=== PATIENT | male | born 1945 | race Caucasian/White ===

== ENCOUNTER 2020-12-16 14:43 | Outpatient (CLI) | payer MEDICARE, BC, SELFPAY ==
--- NOTE | 2020-12-16 14:15 | DI.RAD_ITS ---
Exam(s) XR KNEE LT 3V AP,LAT,WILLIAM EXAM: XR KNEE LT 3V AP,LAT,WILLIAM CLINICAL HISTORY: knee pain. TECHNIQUE: 2D digital imaging was performed of the left knee. Four images were obtained. AP, later al and PA tunnel views were obtained. COMPARISON: No exams were available for comparison FINDINGS: BONES: No acute fracture is present. No bony destructive lesion is seen. Prominent hypertrophic millard ges are seen at the inferior patella and the anterior tibial tuberosity. Hypertrophic changes are al so seen at the proximal tibial fibular articulation. JOINTS: The knee is normally aligned. No joint effusion is seen. SOFT TISSUE: Normal. IMPRESSION: No acute for abnormality. DATA REPOSITORY: RADIATION DOSE DELIVERED:
--- NOTE | 2020-12-16 14:15 | DI.RAD_ITS ---
Exam(s) XR HIP RT COMPLETE AP PELVIS EXAM: XR HIP RT COMPLETE AP PELVIS CLINICAL HISTORY: R hip pain. TECHNIQUE: 2D digital imaging was performed of the right hip. Two images were obtained. AP pelvis a nd lateral right hip views were obtained. COMPARISON: No exams were available for comparison FINDINGS: BONES: No acute fracture is present. No bony destructive lesion is seen. JOINTS: No dislocation present. Mild degenerative changes are seen in the hips bilaterally. Ligament ous calcification is seen at the lumbosacral junction. SOFT TISSUE: Normal. IMPRESSION: Mild degenerative changes of the hips bilaterally. DATA REPOSITORY: RADIATION DOSE DELIVERED:
== END 2020-12-16 14:44 | disposition home or self-care (01) ==
LOC: DIORS 14:44
PROVIDERS: PCP Internal Medicine; Referring Provider Internal Medicine; Visit Provider Student in an Organized Health Care Education/Training Program
DX: M25.562 Pain in left knee (principal); M25.551 Pain in right hip; M17.12 Unilateral primary osteoarthritis, left knee; M70.52 Other bursitis of knee, left knee; M70.61 Trochanteric bursitis, right hip
CPT/HCPCS: 20610; 73562; 73502; J1040

== ENCOUNTER 2021-08-15 02:40 | Outpatient (RCR) | payer MEDICARE, BC, SELFPAY ==
--- NOTE | 2021-08-15 09:45 | HOLTER_ITS ---
APPROVED REPORT Conclusion This is a 48-hour Holter monitor reportedly ordered for tachycardia Interpretation is confounded by poor baseline, but probably the patient is in atrial flutter througho ut the recording with an average heart rate overall of 92. Minimum was 74, maximum 178. Heart rates are elevated a considerable portion of the time, particularly during waking hours There were rare ventricular ectopic beats There was no high-grade AV block, no pauses greater than 3 seconds No patient symptoms were reported
== END 2021-09-07 23:59 | disposition home or self-care (01) ==
LOC: RT 02:40
PROVIDERS: PCP Internal Medicine; Visit Provider Internal Medicine
DX: R00.0 Tachycardia, unspecified (principal); I48.92 Unspecified atrial flutter
CPT/HCPCS: 93227; 93225; 93226

== ENCOUNTER → 2021-12-08 10:44 | Outpatient (BNVA) | payer MEDICARE, BC, SELFPAY | PROVIDERS: PCP Internal Medicine; Referring Provider Internal Medicine; Visit Provider Internal Medicine Cardiovascular Disease | DX: E66.01 Morbid (severe) obesity due to excess calories (principal); E78.5 Hyperlipidemia, unspecified; R06.09 Other forms of dyspnea; G47.33 Obstructive sleep apnea (adult) (pediatric); Z99.89 Dependence on other enabling machines and devices; R60.0 Localized edema; I48.92 Unspecified atrial flutter; R94.39 Abnormal result of other cardiovascular function study; E11.29 Type 2 diabetes mellitus with other diabetic kidney complication; R80.9 Proteinuria, unspecified | CPT/HCPCS: 93005; 99203; 99214 ==

== ENCOUNTER 2021-12-08 10:50 | Outpatient (CLI) | payer MEDICARE, BC, SELFPAY ==
--- NOTE | 2021-12-08 10:45 | RT.EKG_ITS ---
APPROVED REPORT Exam: Resting ECG Reason for Exam: NPW, Baseline needed Patient Location: O HR:57 bpm ECG Measurements Heart Rate 57 AXIS SD 210 P 16 QRSd 135 QRS 0 QT 430 T 7 QTc 419 Conclusion Sinus rhythm...normal P axis, V-rate 50- 99 Atrial premature complex...SV complex w/ short R-R interval Left anterior fascicular block Late transition
== END 2021-12-08 10:51 | disposition home or self-care (01) ==
LOC: DI.CARD 10:52
PROVIDERS: PCP Internal Medicine; Visit Provider Internal Medicine Cardiovascular Disease
DX: I48.92 Unspecified atrial flutter (principal); R94.31 Abnormal electrocardiogram [ECG] [EKG]; I49.1 Atrial premature depolarization; I44.4 Left anterior fascicular block
CPT/HCPCS: 93010

== ENCOUNTER 2021-12-09 03:28 | Outpatient (CLI) | payer MEDICARE, BC, SELFPAY ==
[2021-12-09 13:36] LABS: HCT 41.2 % (40.0-50.0); MCH 30.6 pg (27.0-33.0); MCV 90 fL (80-95); MPV 10.5 fL (8.0-11.0); Platelet Count 154 10^3/uL (130-400); RBC 4.58 10^6/uL (4.36-5.78); RDW 12.9 % (11.8-14.1); RDW-SD 42.3 fL; WBC 5.59 10^3/uL (4.4-10.8)
[2021-12-09 14:17] LABS: Anion Gap 9.1 mmol/L (3-11); BUN 17 mg/dL (7-18); CO2 25.9 mmol/L (21.0-32.0); CREATININE 1.2 mg/dL (0.70-1.30); Calcium 9.1 mg/dL (8.5-10.1); Chloride 105 mmol/L (98-107); Estimated GFR 62.29 (mL/min/1.73m2); Glucose 123 mg/dL (74-106); Potassium 4.3 mmol/L (3.5-5.1); Sodium 140 mmol/L (136-145)
[2021-12-09 14:21] LABS: INR 1.3 (0.9-1.1); PTT Activated 27.9 sec (21.0-27.5); Prothrombin Time 12.7 sec (9.3-11.0)
== END 2021-12-09 03:29 | disposition home or self-care (01) ==
LOC: LBO 03:33
PROVIDERS: PCP Internal Medicine; Visit Provider Internal Medicine Cardiovascular Disease
DX: I48.92 Unspecified atrial flutter (principal); E11.29 Type 2 diabetes mellitus with other diabetic kidney complication; R80.9 Proteinuria, unspecified; R94.39 Abnormal result of other cardiovascular function study
CPT/HCPCS: 36415; 80048; 85027; 85610; 85730

== ENCOUNTER → 2021-12-16 02:36 | Outpatient (CLI) | payer MEDICARE, BC, SELFPAY ==
--- NOTE | 2021-12-16 14:58 | DI.US_ITS ---
APPROVED REPORT EXAM: Comprehensive 2D, Doppler, and color-flow Echocardiogram Patient Location: Out-Patient Loan Associate: Linh Ramos RDCS (AE) Indications: LV function, Atrial flutter Other Information Study Quality: Fair. Technically limited study due to body habitus. Conclusion Normal left ventricular wall thickness and chamber size. Estimated ejection fraction is 58%. Wall m otion is normal The right atrium and right ventricle are not well visualized The left atrium is moderately dilated Aortic valve is sclerotic and trileaflet with trace regurgitation. There is no aortic stenosis Mitral annular calcification. Trace mitral regurgitation Normal tricuspid valve with mild regurgitation. Estimated right ventricular systolic pressure is 31 mmHg Dilated ascending aorta measuring 4.1 cm Wall motion Left Ventricle The left ventricle is normal size. The overall left ventricular systolic function appears normal. The re is normal left ventricular wall thickness. There is normal LV segmental wall motion. There is no v entricular septal defect visualized. LVEF is 58%. Right Ventricle Right ventricle is not well visualized. Right ventricular systolic function could not be assessed. Th e RVSP is 30.9mmHg. Atria Left atrium is moderately dilated. Right atrium is not well visualized. The interatrial septum is int act with no evidence for an atrial septal defect. Aortic Valve The Aortic valve is sclerotic. Aortic valve is trileaflet. There is no aortic valvular stenosis. Trac e aortic regurgitation. Mitral Valve There is mitral annular calcification. No evidence of mitral valve stenosis. Trace mitral regurgitati on. Tricuspid Valve The tricuspid valve is normal in structure. There is no tricuspid valve stenosis. Mild tricuspid regu rgitation. Pulmonic Valve The pulmonary valve is normal in structure. There is no pulmonic valvular stenosis. Trace pulmonic re gurgitation. Great Vessels The aortic root is normal in size. The ascending aorta is moderately dilated. Aortic arch is not well visualized. IVC is normal in size and collapses >50% with inspiration. Pericardium There is no pericardial effusion. 2D Dimensions IVSD d PLAX 1.14 cm M: 0.6-1.2 LV Vol A2C d MOD 202.8 mL LVPW d PLAX 1.16 cm M: 0.6 - 1.2 LV Vol A4C d MOD 182.9 mL LVID d PLAX 5.31 cm M: 4.2 - 5.8 LA vol/ BSA A2C s A-L 67.8 mL/m2 LVDs 3.50 cm M: 2.5 - 4.0 LA vol/ BSA A4C s A-L 45.8 mL/m2 Ao Root d 3.45 cm M: 3.1 - 3.7 LA Vol/ BSA Biplane s A-L 58.5 mL/m2 Ao Asc Diam d 4.10 cm M: 2.6 - 3.4 LA Area A4C s MOD 29.17 cm2 LV EF Teichholz 61.4 % LA Area A2C s MOD 37.24 cm2 LVEF (Foote's) 58.95 % M: 52 - 72 LV EF A4C MOD 57.4 % LV Volume 139.55 mL M: 62 - 150 LV EF A2C MOD 59.1 % LV Volume Index 59.63 mL/m2 M: 34 - 74 LV EF Biplane MOD 59.0 % LV Vol Biplane MOD 195.7 mL SV 115.40 mL FS 33.20 % SV Index 49.14 mL/m2 LV Diastology MV E' medial 0.069 (>0.07 m/s) E/A Ratio 1.7 LV E/e MED 13.80 (<14) MV E Vmax 0.96 (0.4-1.3 m/s) MV E' lateral 0.081 (>0.1 m/s) MV A Vmax 0.55 (0.4-1.3 m/s) LV E/e LAT 11.80 (<14) MV E/A Ratio 1.64 MV E/E' medial 13.84 MV E/E' lateral 11.84 Aortic Valve LVOT Area 3.53 cm2 AoV Area Vmax 2.65 cm2 LVOT Vmax 0.98 m/s AoV Area/ BSA (Vmax) 1.13 cm2/m2 LVOT Mean Tejas. 0.67 m/s GAIL Mean Tejas. 2.50 cm2 LVOT Peak Grad 3.8 mmHg GAIL Mean [place]jas. Index 1.06 cm2/m2 LVOT Mean Grad 2.1 mmHg LVOT VTI 0.248 m LVOT Diam s 2.10 cm AoV Vmax 1.30 m/s Velocity Ratio 0.75 AoV Mean Tejas. 0.94 m/s AoV Peak Grad 6.8 mmHg LVOT SV 87.35 mL AoV Mean Grad 4.0 mmHg AoV VTI 0.299 m AoV Area VTI 2.93 cm2 AoV Area/ BSA (VTI) 1.25 cm/m2 Mitral Valve MV DT 168 (160-240 msec) MV PHT 49 msec MV Area PHT 4.52 cm2 Pulmonary Valve PV Vmax 0.99 (0.5-1.5 m/s) RVOT Peak Gr. 2.33 mmHg PV Peak Grad 3.9 mmHg RVOT Mean Gr. 1.40 mmHg PV Mean Grad 2.0 mmHg RVOT VTI 0.177 m PV VTI 0.217 m RVOT Vmax 0.76 m/s Tricuspid Valve TR Peak Grad 27.8 mmHg TR Vmax 2.64 m/s RA Pressure 3.00 mmHg RVSP (TR) 30.9 mmHg
== END ==
PROVIDERS: PCP Internal Medicine; Visit Provider Internal Medicine Cardiovascular Disease
DX: I48.92 Unspecified atrial flutter (principal)
CPT/HCPCS: 93306

== ENCOUNTER → 2022-01-26 10:35 | Outpatient (BNVA) | payer MEDICARE, BC, SELFPAY | PROVIDERS: PCP Internal Medicine; Referring Provider Internal Medicine; Visit Provider Internal Medicine Cardiovascular Disease | DX: I48.92 Unspecified atrial flutter (principal); I25.10 Atherosclerotic heart disease of native coronary artery without angina pectoris; I10 Essential (primary) hypertension | CPT/HCPCS: 99214 ==

== ENCOUNTER 2022-04-17 16:01 | Outpatient (CLI) | payer MEDICARE, BC, SELFPAY ==
--- NOTE | 2022-04-17 16:00 | RT.EKG_ITS ---
APPROVED REPORT Exam: Resting ECG Reason for Exam: Dizziness Patient Location: O HR:51 bpm ECG Measurements Heart Rate 51 AXIS HI 227 P 48 QRSd 137 QRS -3 QT 456 T 13 QTc 420 Conclusion Sinus rhythm...normal P axis, V-rate 50- 99 Prolonged HI interval...HI >220, V-rate 50- 90 IVCD, consider atypical RBBB...QRSd>120mS, terminal axis(90,270)
== END 2022-04-17 16:02 | disposition home or self-care (01) ==
LOC: DI.CM 16:01
PROVIDERS: PCP Internal Medicine; Visit Provider Physician Assistant
DX: H81.13 Benign paroxysmal vertigo, bilateral (principal); I45.10 Unspecified right bundle-branch block; I45.6 Pre-excitation syndrome; Z95.5 Presence of coronary angioplasty implant and graft
CPT/HCPCS: 93010

== ENCOUNTER 2022-04-25 09:17 | Emergency (ER) | payer MEDICARE, BC, SELFPAY ==
[2022-04-25 09:24] VITALS: BP 188/68; PULSE 64; RESP 18; TEMP 36.7; O2SAT 95
--- NOTE | 2022-04-25 09:30 | DI.CT_ITS ---
Exam(s) CT LUMBAR SPINE RECONS CT ABDOMEN PELVIS WO EXAM: CT ABDOMEN PELVIS WO and CT lumbar spine recons CLINICAL HISTORY: right flank pain. TECHNIQUE: Imaging Protocol: Axial computed tomography images with coronal and sagittal reformatted images were created and reviewed. COMPARISON: CT CT LUMBAR SPINE RECONS from 04/25/2022 FINDINGS: ABDOMEN: Lung Bases: Normal where visualized. There is a small hiatal hernia. Surgical changes are seen at th e gastroesophageal junction. Liver: Normal density. No measurable mass. Gallbladder and biliary tract: No radiodense calculus or biliary ductal dilation. Pancreas: Normal density, no abnormal calcifications or inflammatory process. Spleen: Normal. Kidneys: Normal size, contour and axis.No radiodense stones or obstructive uropathy. There is a tiny fat density lesion in the left kidney. 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 Adrenal glands: There is a 2.2 cm hypodense nodule in the right adrenal gland. The left adrenal glan d is unremarkable. Lymph nodes: Within normal limits. Abdominal Aorta: Abdominal portion non-dilated. Atherosclerosis is present. PELVIS: Bladder:Symmetric distention, no gross wall thickening. Bowel: There is diverticulosis, but no evidence of acute diverticulitis. There is no evidence of harshal endicitis. There is no bowel wall thickening or obstruction. Peritoneal cavity: No ascites, collection or mesenteric inflammatory response. No free air. Reproductive organs: There is an enlarged prostate gland. Bones: Within normal limits. Soft Tissues: Within normal limits. CT lumbar spine recons: Degenerative changes are present throughout the lumbar spine. Findings inclu de endplate osteophytes, disc space narrowing and facet arthropathy. Multilevel neural foraminal hugo nosis is present. The findings are most marked at L4-5 and L5-S1. No acute fractures or subluxation s are seen in the lumbar spine. The bones are normally mineralized. IMPRESSION: 1. No acute abdominal pelvic process. 2. No evidence of hydronephrosis or nephrolithiasis. 3. Hypodense 2.2 cm right adrenal lesion. Follow-up examination with a CT/MRI of the adrenal glands according to the adrenal adenoma protocol is recommended. 4. No acute findings are seen in the lumbar spine. 5. Multilevel degenerative changes in the lumbar spine as described above. RADIATION DOSE DELIVERED: Total DLP DATA REPOSITORY: All CT scans at this facility are submitted to the National Radiology Data Registry (NRDR) Dose Index Registry (DIR) with the [employer] ([employer]). RADIATION OPTIMIZATION: All CT scans at this facility use at least one of these dose optimization te chniques: automated exposure control; mA and/or kV adjustment per patient size (includes targeted exa ms where dose is matched to clinical indication); or iterative reconstruction.
--- NOTE | 2022-04-25 09:33 | ED.GENADUL_ITS ---
Discharge Plan Disposition Patient Disposition: Home Condition: Stable Discharge Details Clinical Impression: Lumbar back pain, Flank pain, Acute UTI Primary Care Provider: Sadi Rogers ED Provider: Alexander Ortega Home Meds and New Rx's Prescriptions: New prednisone 20 mg tablet 60 mg PO DAILY 4 Days Qty: 12 0RF ciprofloxacin HCl 500 mg tablet 500 mg PO BID Qty: 14 0RF Continued cholecalciferol (vitamin D3) 125 mcg (5,000 unit) capsule 125 mcg PO DAILY hydrochlorothiazide 12.5 mg capsule 12.5 mg PO DAILY Patient Comments: not taking losartan 50 mg tablet 50 mg PO DAILY metformin 1,000 mg tablet 1,000 mg PO BID pioglitazone 30 mg tablet 30 mg PO DAILY potassium chloride 10 mEq capsule, extended release 10 meq PO DAILY tamsulosin [Flomax] 0.4 mg capsule 0.4 mg PO QHS Patient Comments: not taking saw palmetto 500 mg capsule 1,000 mg PO DAILY Rx Instructions: give with food (meal/snack) diphenhydramine HCl [Allergy (diphenhydramine)] 25 mg capsule 25 mg PO QHS PRN Patient Comments: not taking clopidogrel 75 mg tablet 75 mg PO DAILY rosuvastatin 20 mg tablet 20 mg PO DAILY melatonin 5 mg capsule 5 mg PO DAILY PRN meclizine 25 mg tablet 25 mg PO BID PRN (Reason: dizziness) Qty: 7 0RF Patient Comments: not taking metoprolol succinate 25 mg tablet extended release 24 hr 25 mg PO DAILY Xarelto 20 mg tablet 20 mg PO DAILY Rx Instructions: must administer with evening meal Discharge Instructions Instructions: Urinary Tract Infection in Men (ED), Acute Low Back Pain (ED) Additional Instructions: your cat scans did not show concerning findings at this time, your urine did show evidence of a urinary tract infection follow up with your primary care provider within a week if symptoms continue if you feel more ill, have severe worsening pain or fevers return to the emergency department Medical Decision Making 76 yo male with hx of cad, hld, t2dm, who comes in with 3 days of worsening back pain. He states he has had chronic pain for years but has worsened the last few days without any trauma or falls. He denies fevers, chills, chest pain, dyspnea, abdomen pain, difficulty urinating. HE arrives stable ambulatory without assistance. He localizes the pain to the lower lumbar region and right lower back. HE has no saddle anesthesia, intact distal sensation and pulses and 5/5 strength in the extremities.He has no erythema or rashes on his back, no cva tenderness, no abdominal tenderness. Suspect musculoskeletal back pain, will obtain ct to evaluate for possible kidney stones though this seems unlikely and also evaluate for possible compression fx's. No findings on history or physical to suggest etiologies such as cauda equina and spinal epidural abscess. blood work and cat scan show no acute findings, has degenerative disease of the lumbar region. HE is positive nitrites on his urine, denies any urinary sympto ms. HE feels well and states pain significantly better with toradol. He has stable exam. Suspect musculoskeletal back pain, no findings to suggest pyelo. Will trial short course of prednisone and start on cipro, he is stable for d/c, advised to f/u with his pcp and return precautions given Differential Diagnosis Differential Diagnosis: muscle spasm, disc herniation, kidney stone Medical Records Medical records reviewed: Yes I reviewed the patient's medical records. Imaging Data Radiologic Study: Attestation: I personally reviewed and interpreted this imaging study as follows: Imaging: CT Scan Radiologist's impression: IMPRESSION: 1. No acute findings to explain reported symptoms, within the limitations of a noncontrast examination. 2. Nonacute findings as outlined above. 3. Additional studies dictated separately Radiologic Study #2: Attestation: I personally reviewed and interpreted this imaging study as follows: Imaging: CT Scan Radiologist's impression: FINDINGS: Bones/joints: No acute lumbar spine fracture seen. Findings suggestive of diffuse idiopathic skeletal hyperostosis. 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 At T12-L1 there is marked bilateral foraminal narrowing and marked canal narrowing. At L1-L2 there is marked bilateral foraminal narrowing and marked canal narrowing. At L2-L3 there is marked bilateral foraminal narrowing and marked canal narrowing. At L3-L4 there is marked bilateral foraminal narrowing and marked canal narrowing. At L4- L5 there is marked bilateral foraminal narrowing and marked canal narrowing. At L5-S1 there is marked bilateral foraminal narrowing and moderate canal narrowing. HPI General Mode of arrival: ambulatory . Date/Time Provider Initiated Documentation: 04/25/22 09:20 . Limitations to Documentation: no limitations . Information obtained by: patient . History of Present Illness 76 year old M presents to the emergency department with the chief complaint of lower back pain, described as severe, Quality is described as aching, and is localized to the back. Patient reports no radiation. Patient started experiencing this day(s) (3) and it has been constant. No relieving factors improve symptom(s), No exacerbating factors reported . Patient notes no ot her symptoms.; denies chest pain, fever/chills, nausea/vomiting and shortness of breath. Patient did receive the following treatments prior to arrival, none Related Data Home Medications Medication Instructions Recorded Confirmed cholecalciferol (vitamin D3) 125 125 mcg PO DAILY 12/10/20 04/25/22 mcg (5,000 unit) capsule hydrochlorothiazide 12.5 mg capsule 12.5 mg PO DAILY 12/10/20 04/18/22 losartan 50 mg tablet 50 mg PO DAILY 12/10/20 04/25/22 metformin 1,000 mg tablet 1,000 mg PO BID 12/10/20 04/25/22 pioglitazone 30 mg tablet 30 mg PO DAILY 12/10/20 04/25/22 potassium chloride 10 mEq 10 meq PO DAILY 12/10/20 04/25/22 capsule,extended release saw palmetto 500 mg capsule 1,000 mg PO DAILY 12/10/20 04/25/22 tamsulosin 0.4 mg capsule (Flomax) 0.4 mg PO QHS 12/10/20 04/25/22 metoprolol succinate 25 mg 25 mg PO DAILY 09/17/21 04/25/22 tablet,extended release 24 hr rivaroxaban 20 mg tablet (Xarelto) 20 mg PO DAILY 09/17/21 04/25/22 diphenhydramine HCl 25 mg capsule 25 mg PO QHS PRN 12/08/21 04/18/22 (Allergy (diphenhydramine)) clopidogrel 75 mg tablet 75 mg PO DAILY 01/26/22 04/25/22 melatonin 5 mg capsule 5 mg PO DAILY PRN 01/26/22 04/25/22 rosuvastatin 20 mg tablet 20 mg PO DAILY 01/26/22 04/25/22 meclizine 25 mg tablet 25 mg PO BID PRN dizziness #7 tabs 04/17/22 04/17/22 ciprofloxacin HCl 500 mg tablet 500 mg PO BID #14 tabs 04/25/22 prednisone 20 mg tablet 60 mg PO DAILY 4 days #12 tabs 04/25/22 Previous Rx's Medication Instructions Recorded meclizine 25 mg tablet 25 mg PO BID PRN dizziness #7 tabs 04/17/22 ciprofloxacin HCl 500 mg tablet 500 mg PO BID #14 tabs 04/25/22 prednisone 20 mg tablet 60 mg PO DAILY 4 days #12 tabs 04/25/22 Allergies Allergy/AdvReac Type Severity Reaction Status Date / Time lisinopril AdvReac Mild cough Verified 04/25/22 09:24 trazodone AdvReac dry mouth Verified 04/25/22 09:24 General Stated Complaint: Nk/Back Pain TETE: 4 Review of Systems All systems reviewed & are unremarkable except as noted in HPI and below Constitutional Constitutional: Denies chills, Denies fever(s) and Denies weakness Cardiovascular Cardiovascular: Denies chest pain and Denies dyspnea Respiratory Respiratory: Denies cough and Denies dyspnea Gastrointestinal Gastrointestinal: Denies abdominal pain, Denies nausea and Denies vomiting Musculoskeletal Musculoskeletal: Denies joint swelling Integumentary/Breasts Skin/Breast: Denies rash Neurologic Neurologic: Denies weakness PFSH All Active Problems (Updated 04/25/22 @ 11:29 by Alexander Ortega MD) Lumbar back pain (Acute) Flank pain (Acute) Acute UTI (Acute) Coronary artery disease (Chronic) Abnormal nuclear stress test (Acute) Paroxysmal atrial flutter (Acute) Trochanteric bursitis, right hip (Acute) Pes anserinus bursitis of left knee (Acute) Osteoarthritis of left knee (Acute) Steroid injection: 12/16/2020 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) Insomnia (Acute) Presbycusis of both ears (Acute) BRAXTON (obstructive sleep apnea) (Chronic) Morbid obesity (Acute) Hypercholesterolemia (Acute) Primary hypertension (Acute) Benign prostatic hyperplasia with urinary frequency (Acute) Medical History Atrial flutter Kidney stone Social History Smoking/Tobacco Use Status: Former Tobacco Use Smoking risk assessment performed?: Yes Alcohol Intake: former Substance use type: does not use Do you feel safe at home: Yes Do you feel safe in your relationship?: Yes Exam Const General: no acute distress Orientation: alert HENMT Head: normal to inspection Ears: external ears normal General nose exam: external nose normal Mouth: moist mucous membranes Eyes General: appearance normal, both eyes and all related structures Neck Neck: normal visual inspection Resp Effort & Inspection: normal respiratory effort and able to speak in complete sentences Cardio Rate: regular rate GI Palpation: soft and nontender Back/Spine/Pelvis Back: no CVA tenderness, No erythema and No warmth Skin General skin exam: no rashes or lesions noted Neuro General: patient alert and patient oriented x3 Extrem General: normal to inspection Psych Mental Status: mental status grossly normal Course Vital Signs Vital signs: Vital Signs Temperature 36.7 C 04/25/22 09:24 Pulse 64 04/25/22 09:24 Respiratory Rate 18 04/25/22 09:24 Blood Pressure 188/68 H 04/25/22 09:24 Pulse Oximetry 95 04/25/22 09:24 Temperature 36.7 C 04/25/22 09:24 Temperature Source Oral 04/25/22 09:24 Pulse 64 04/25/22 09:24 Respiratory Rate 18 04/25/22 09:24 Respiratory Effort Normal, Non-Labored 04/25/22 09:23 Blood Pressure 188/68 H 04/25/22 09:24 Pulse Oximetry 95 04/25/22 09:24 Oxygen Delivery Method Room Air 04/25/22 09:24 Oxygen Flow Rate 0 04/25/22 09:24
[2022-04-25] MEDS: Ketorolac 15 MG/ML VIAL IVP (09:55)
[2022-04-25 10:06] LABS: Abs Immature Grans 0.02 10^3/uL (0.0-0.06); Absolute Basophil Count 0.04 10^3/uL (0.0-0.2); Absolute Eosinophil Count 0.16 10^3/uL (0.0-0.7); Absolute Lymphocyte Count 0.79 10^3/uL (1.2-3.4); Absolute Monocyte Count 0.32 10^3/uL (0.1-0.8); Absolute Neutrophil Count 3.11 10^3/uL (1.2-6.7); Basophils % 0.9; Eosinophils % 3.6; HCT 39.3 % (40.0-50.0); HGB 13.1 g/dL (13.5-17.5); Immature Grans % 0.5; Lymphocytes % 17.8; MCH 30.8 pg (27.0-33.0); MCHC 33.3 % (32.0-36.0); MCV 93 fL (80-95); MPV 10.4 fL (8.0-11.0); Monocytes % 7.2; Platelet Count 136 10^3/uL (130-400); RBC 4.25 10^6/uL (4.36-5.78); RDW-SD 43.8 fL; WBC 4.44 10^3/uL (4.4-10.8)
[2022-04-25 10:20] LABS: ALT 27 U/L (16-63); AST 23 U/L (15-37); Albumin 3.5 g/dL (3.4-5.0); Alkaline Phosphatase 44 U/L (46-116); Anion Gap 6.9 mmol/L (3-11); BUN 16 mg/dL (7-18); Bilirubin, Total 0.5 mg/dL (0.2-1.0); CO2 27.1 mmol/L (21.0-32.0); CREATININE 1.2 mg/dL (0.70-1.30); Calcium 8.9 mg/dL (8.5-10.1); Chloride 104 mmol/L (98-107); Estimated GFR 62.29 (mL/min/1.73m2); Glucose 150 mg/dL (74-106); INR 1.3 (0.9-1.1); Magnesium 1.7 mg/dL (1.8-2.4); PTT Activated 28.9 sec (21.5-31.9); Potassium 4.1 mmol/L (3.5-5.1); Prothrombin Time 13.1 sec (9.3-11.0); Sodium 138 mmol/L (136-145); Total Protein 6.6 g/dL (6.4-8.2)
[2022-04-25 10:31] LABS: Bilirubin Negative (Negative); Blood Negative (Negative); Clarity Cloudy (Clear); Glucose 100 mg/dL (Negative); Ketones Negative (Negative); Leukocyte Esterase Small (Negative); Nitrite Positive (Negative); Specific Gravity 1.025 (1.005-1.025); Urobilinogen 0.2 mg/dL (Up to 0.2)
[2022-04-25 10:38] LABS: Bacteria Many HPF (Negative); C & S Indicated? Yes; Casts Negative LPF (Negative); Crystals Negative HPF (Negative); Epithelial Cells Rare HPF (Negative); Mucus Trace (Negative); RBC Negative HPF (0-2)
--- NOTE | 2022-04-25 10:41 | DI.VRAD_ITS ---
PROCEDURE INFORMATION: Exam: CT Abdomen And Pelvis Without Contrast Exam date and time: 04/25/2022 10:09 AM Age: 76 years old Clinical indication: Other: Low back pain TECHNIQUE: Imaging protocol: Computed tomography of the abdomen and pelvis without contrast. COMPARISON: No relevant prior studies are available for comparison. FINDINGS: Limitations: No contrast was administered, limiting evaluation for some pathologies. Heart: Trace pericardial fluid. Diaphragm: Small hiatal hernia. Liver: Contour irregularity in the liver. Correlate clinically for history of chronic liver disease/cirrhosis. Hepatomegaly. Gallbladder and bile ducts: No radiodense gallbladder calculi seen. Pancreas: No CT evidence for acute pancreatitis. Spleen: No splenomegaly. Adrenal glands: Low-density right adrenal nodule, likely adenoma. Kidneys and ureters: Small left renal angiomyolipoma. No hydronephrosis. Stomach and bowel: Prior gastric surgery. No intestinal obstruction is evident. Colonic diverticula are identified but there is no CT evidence for diverticulitis. Retained fecal material throughout the colon. Correlate clinically for history of constipation. Appendix: No evidence of appendicitis. Intraperitoneal space: Mild haziness of the mesenteric fat. Vasculature: Arterial calcifications. Lymph nodes: Nonspecific mesenteric and retroperitoneal lymph nodes. Urinary bladder: No acute findings. Reproductive: Enlarged prostate with calcifications. Bones/joints: Degenerative changes in the spine and hip joints. CT scan of the lumbar spine dictated separately. Soft tissues: Fat containing left inguinal hernia. IMPRESSION: 1. No acute findings to explain reported symptoms, within the limitations of a noncontrast examination. 2. Nonacute findings as outlined above. 3. Additional studies dictated separately. Dictated and Authenticated by: Erika Cheng MD. Ordering:MYRIAM Munoz MD
--- NOTE | 2022-04-25 11:04 | DI.VRAD_ITS ---
PROCEDURE INFORMATION: Exam: CT Lumbar Spine Without Contrast Exam date and time: 04/25/2022 10:09 AM Age: 76 years old Clinical indication: Low back pain TECHNIQUE: Imaging protocol: Computed tomography of the lumbar spine without contrast. COMPARISON: No relevant prior studies are available for comparison. FINDINGS: Bones/joints: No acute lumbar spine fracture seen. Findings suggestive of diffuse idiopathic skeletal hyperostosis. 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 At T12-L1 there is marked bilateral foraminal narrowing and marked canal narrowing. At L1-L2 there is marked bilateral foraminal narrowing and marked canal narrowing. At L2-L3 there is marked bilateral foraminal narrowing and marked canal narrowing. At L3-L4 there is marked bilateral foraminal narrowing and marked canal narrowing. At L4-L5 there is marked bilateral foraminal narrowing and marked canal narrowing. At L5-S1 there is marked bilateral foraminal narrowing and moderate canal narrowing. Intraperitoneal space: Please refer to report for CT scan of the abdomen and pelvis for description of abdominal findings, dictated separately. Soft tissues: Soft tissue algorithm images are not submitted. IMPRESSION: 1. No acute findings to explain reported symptoms. 2. Nonacute findings as outlined above. 3. Additional studies dictated separately. Dictated and Authenticated by: Erika Cheng MD. Ordering:MYRIAM Munoz MD
[2022-04-25] MEDS: Ciprofloxacin 500 MG TAB PO (11:31)
--- NOTE | 2022-04-28 10:09 | NUR.NOTE ---
Nursing Note: Accessed chart to look up whether or not on antibiotic.
--- NOTE | 2022-04-28 10:11 | W.EDPROG ---
Date of service: 04/28/22 Time of Service: 10:11 Medical Decision Making This patient was seen in the emergency department 3 days ago. His final urine culture resulted as greater than 100,000 colony-forming units of E. coli which was pansensitive. Patient has been discharged on ciprofloxacin to with his E. coli is sensitive. We will continue to proceed with an empiric trial of expectant outpatient management. Discharge Plan Disposition Patient Disposition: Home Condition: Stable Discharge Details Clinical Impression: Lumbar back pain, Flank pain, Acute UTI Primary Care Provider: Sadi Rogers ED Provider: Alexander Ortega Home Meds and New Rx's Prescriptions: New prednisone 20 mg tablet 60 mg PO DAILY 4 Days Qty: 12 0RF ciprofloxacin HCl 500 mg tablet 500 mg PO BID Qty: 14 0RF Continued cholecalciferol (vitamin D3) 125 mcg (5,000 unit) capsule 125 mcg PO DAILY hydrochlorothiazide 12.5 mg capsule 12.5 mg PO DAILY Patient Comments: not taking losartan 50 mg tablet 50 mg PO DAILY metformin 1,000 mg tablet 1,000 mg PO BID pioglitazone 30 mg tablet 30 mg PO DAILY potassium chloride 10 mEq capsule, extended release 10 meq PO DAILY tamsulosin [Flomax] 0.4 mg capsule 0.4 mg PO QHS Patient Comments: not taking saw palmetto 500 mg capsule 1,000 mg PO DAILY Rx Instructions: give with food (meal/snack) diphenhydramine HCl [Allergy (diphenhydramine)] 25 mg capsule 25 mg PO QHS PRN Patient Comments: not taking clopidogrel 75 mg tablet 75 mg PO DAILY rosuvastatin 20 mg tablet 20 mg PO DAILY melatonin 5 mg capsule 5 mg PO DAILY PRN meclizine 25 mg tablet 25 mg PO BID PRN (Reason: dizziness) Qty: 7 0RF Patient Comments: not taking metoprolol succinate 25 mg tablet extended release 24 hr 25 mg PO DAILY Xarelto 20 mg tablet 20 mg PO DAILY Rx Instructions: must administer with evening meal Discharge Instructions Instructions: Urinary Tract Infection in Men (ED), Acute Low Back Pain (ED) Additional Instructions: your cat scans did not show concerning findings at this time, your urine did show evidence of a urinary tract infection follow up with your primary care provider within a week if symptoms continue if you feel more ill, have severe worsening pain or fevers return to the emergency department Discharge Data Discharge Date/Time-TO BE ENTERED AT DEPARTURE: 04/25/22 11:44
== END 2022-04-25 11:44 | disposition home or self-care (01) ==
PROVIDERS: Emergency Provider Emergency Medicine; PCP Internal Medicine
DX: N39.0 Urinary tract infection, site not specified (principal); B96.20 Unspecified Escherichia coli [E. coli] as the cause of diseases classified elsewhere; E11.9 Type 2 diabetes mellitus without complications; M54.50 Low back pain, unspecified; I25.10 Atherosclerotic heart disease of native coronary artery without angina pectoris; G89.29 Other chronic pain; Z79.84 Long term (current) use of oral hypoglycemic drugs; Z87.442 Personal history of urinary calculi; R10.9 Unspecified abdominal pain
CPT/HCPCS: 80053; 87077; 96374; 99284; 74176; 81003; 81015; 83735; 85025; 85610; 85730; 87086; 87186; J1885

== ENCOUNTER → 2022-08-06 10:41 | Outpatient (BNVA) | payer MEDICARE, BC, SELFPAY | PROVIDERS: PCP Internal Medicine; Visit Provider Internal Medicine Cardiovascular Disease | DX: Z79.01 Long term (current) use of anticoagulants (principal); I25.10 Atherosclerotic heart disease of native coronary artery without angina pectoris; I48.92 Unspecified atrial flutter; I10 Essential (primary) hypertension | CPT/HCPCS: 99214 ==

== ENCOUNTER 2022-08-13 01:44 | Outpatient (CLI) | payer MEDICARE, BC, SELFPAY ==
--- NOTE | 2022-08-13 07:39 | DI.NM_ITS ---
APPROVED REPORT Exam: Pharmacologic Patient Location: Out-Patient Room/Bed: Stress Nurse: Kiarra Hernandez RN Ordering Provider:SAMUEL BURLESON, Contact Number: [phone] BMI: 47.60 Baseline Rhythm: Sinus Bradycardia Comment: First degree AV block, RBBB, occasional PAC Indications: Exercise intolerance, VALLE, CAD Medical History Medical History: CAD, atrial flutter, HLD, obesity, BRAXTON, HTN, T2DM Cardiac Medications: Metoprolol succinate, metformin, losartan, rosuvastatin, hydrochlorathiazide, ri varoxaban Allergies: Trazadone, lisinopril Cardiac Risk Factors: Family history, HTN, HLD, CVD, diabetes, former smoker, obesity Previous Cardiac Procedures: PCI to LAD Pretest Chest Pain Characteristics: None Exercise History: Sedentary Physical Disabilities: Intolerance due to SOB Lung Sounds: Clear to auscultation Heart Sounds: Regular Stress Test Details Test: Pharmacologic stress testing performed using 0.4 mg of regadenoson per 5 mL given IV over 10 s econds. Reason for pharmacologic stress test: physical limitation. Nuclear Acquisition: Rest Tc-99m/Stress Tc-99m 1 day Rest Isotope: Tc-99m Sestamibi. Dose: 16.0 Date: 08/13/2022 Injection Time: 0825 Stress Isotope: Tc-99m Sestamibi. Dose: 44.4 Date: 08/13/2022 Injection Time: 1000 HR Resting HR Supine: 49 bpm Max Heart Rate (APMHR): 143.172534 bpm Target HR (85% APMHR): 121.798867 bpm Max HR Achieved: 81 bpm % of APMHR: 56.64 Recovery HR: 63 bpm BP Resting BP Supine: 172/76 mmHg Max BP: 178/78 mmHg Recovery BP: 164/82 mmHg ECG Resting ECG: Sinus Bradycardia, RBBB, 1st degree AV block Ectopy: Occasional PAC Stress ECG: Sinus Rhythm, RBBB, 1st degree AV block ST Change: Nondiagnostic low heart rate Recovery ECG: Sinus Rhythm, RBBB, 1st degree AV block Recovery ST Change: Nondiagnostic low heart rate Recovery Arrhythmia: None Clinical Stress Symptoms: Chest pressure 5/10 Angina Score: Non-Limiting Rate Pressure Product: 53244 Stress ECG Conclusion 1. Resting electrocardiogram showed right bundle branch block 2. Patient underwent testing using regadenoson 3. The electrocardiographic portion of the test was nondiagnostic due to inadequate heart rate 4. See MPI report Stress Test Summary STAGE HR BP SpO2 Symptoms NOTES Supine 49 172/76 95 1 min post Lexiscan injection 58 164/82 97 5/10 Chest pressure 3 min post Lexiscan injection 60 178/78 96 Chest pressure resolved 6 min post Lexiscan injection 63 164/82 96 MPI Conclusion Myocardial perfusion is normal. There is no ischemia or evidence of prior infarction EF is 54% with normal wall motion Radiologist Interpretation Radiologist agrees with Reception's Interpretation. Radiologist Interpretation by: Bee Jasso MD Interpretation Date/Time: 08/13/2022 15:54:51
[2022-08-13] MEDS: Regadenoson 0.4 MG/5 ML SYR IVP (10:23)
== END 2022-08-13 02:04 ==
LOC: DI 01:44
PROVIDERS: PCP Internal Medicine; Visit Provider Internal Medicine Cardiovascular Disease
DX: I25.10 Atherosclerotic heart disease of native coronary artery without angina pectoris (principal)
CPT/HCPCS: 78452; 93016; 93018; 93017; J2785

== ENCOUNTER 2022-08-26 07:23 | Outpatient (CLI) | payer MEDICARE, BC, SELFPAY ==
--- NOTE | 2022-08-26 | DI.RAD_ITS ---
Exam(s) XR CHEST 2V PA LATERAL EXAM: XR CHEST 2V PA LATERAL CLINICAL HISTORY: SOB, R06.02 TECHNIQUE: 2D digital imaging was performed. COMPARISON: No exams were available for comparison FINDINGS: HEART: Mildly enlarged. Aorta: Not dilated. Mildly tortuous. PULMONARY VASCULATURE: Normal. LUNGS: Clear. PLEURAL SPACE: No pleural effusion or pneumothorax. BONE:Unremarkable for age. IMPRESSION: No acute abnormality. DATA REPOSITORY: RADIATION DOSE DELIVERED:
== END 2022-08-26 07:43 ==
LOC: DI 07:24
PROVIDERS: PCP Internal Medicine; Visit Provider Internal Medicine
DX: R06.02 Shortness of breath (principal)
CPT/HCPCS: 71046

== ENCOUNTER 2022-10-17 16:36 | Emergency (ER) | payer MEDICARE, BC, SELFPAY ==
[2022-10-17 16:47] VITALS: BP 173/95; PULSE 61; RESP 18; TEMP 36.9; O2SAT 100
--- NOTE | 2022-10-17 16:57 | W.ED.GENAD ---
Discharge Plan Disposition Patient Disposition: Home Condition: Stable Discharge Details Clinical Impression: Dental infection Primary Care Provider: Sadi Rogers ED Provider: Marialuisa Becerra Home Meds and New Rx's Prescriptions: New penicillin V potassium 500 mg tablet 500 mg PO QID Qty: 28 0RF Continued cholecalciferol (vitamin D3) 125 mcg (5,000 unit) capsule 125 mcg PO DAILY hydrochlorothiazide 12.5 mg capsule 12.5 mg PO DAILY Patient Comments: not taking losartan 50 mg tablet 50 mg PO DAILY metformin 1,000 mg tablet 1,000 mg PO BID pioglitazone 30 mg tablet 30 mg PO DAILY potassium chloride 10 mEq capsule, extended release 10 meq PO DAILY tamsulosin [Flomax] 0.4 mg capsule 0.4 mg PO QHS Patient Comments: not taking saw palmetto 500 mg capsule 1,000 mg PO DAILY Rx Instructions: give with food (meal/snack) diphenhydramine HCl [Allergy (diphenhydramine)] 25 mg capsule 25 mg PO QHS PRN Patient Comments: not taking clopidogrel 75 mg tablet 75 mg PO DAILY rosuvastatin 20 mg tablet 20 mg PO DAILY melatonin 5 mg capsule 5 mg PO DAILY PRN meclizine 25 mg tablet 25 mg PO BID PRN (Reason: dizziness) Qty: 7 0RF Patient Comments: not taking metoprolol succinate 25 mg tablet extended release 24 hr 25 mg PO DAILY Xarelto 20 mg tablet 20 mg PO DAILY Rx Instructions: must administer with evening meal meclizine 25 mg tablet 25 mg PO PRN PRN Discharge Instructions Instructions: Dental Abscess (ED) Additional Instructions: Take antibiotics as directed even if you feel better Continue to use Tylenol as directed for pain Can add tramadol for more severe pain at night Referrals: Sadi Rogers [Primary Care Provider] - Discharge Data Discharge Date/Time-TO BE ENTERED AT DEPARTURE: 10/17/22 17:42 Medical Decision Making Patient with no drainable abscess appreciated. Will treat with penicillin pain medication and refer outpatient to dentist. HPI General Mode of arrival: ambulatory. Date/Time Provider Initiated Documentation: 10/17/22 16:56. Limitations to Documentation: no limitations. Information obtained by: patient. HPI Narrative: Right front upper dental pain x3 days no fever. Taking APAP with no improvement #8 fracture #7 no obvious drainable abscess. States he had a root canal done approximately 30 years ago to #7. Has not seen a dentist in several years Related Data Home Medications Medication Instructions Recorded Confirmed cholecalciferol (vitamin D3) 125 125 mcg PO DAILY 12/10/20 10/17/22 mcg (5,000 unit) capsule hydrochlorothiazide 12.5 mg capsule 12.5 mg PO DAILY 12/10/20 09/21/22 losartan 50 mg tablet 50 mg PO DAILY 12/10/20 10/17/22 metformin 1,000 mg tablet 1,000 mg PO BID 12/10/20 10/17/22 pioglitazone 30 mg tablet 30 mg PO DAILY 12/10/20 10/17/22 potassium chloride 10 mEq 10 meq PO DAILY 12/10/20 10/17/22 capsule,extended release saw palmetto 500 mg capsule 1,000 mg PO DAILY 12/10/20 10/17/22 tamsulosin 0.4 mg capsule (Flomax) 0.4 mg PO QHS 12/10/20 10/17/22 metoprolol succinate 25 mg 25 mg PO DAILY 09/17/21 10/17/22 tablet,extended release 24 hr rivaroxaban 20 mg tablet (Xarelto) 20 mg PO DAILY 09/17/21 10/17/22 diphenhydramine HCl 25 mg capsule 25 mg PO QHS PRN 12/08/21 10/17/22 (Allergy (diphenhydramine)) clopidogrel 75 mg tablet 75 mg PO DAILY 01/26/22 10/17/22 melatonin 5 mg capsule 5 mg PO DAILY PRN 01/26/22 10/17/22 rosuvastatin 20 mg tablet 20 mg PO DAILY 01/26/22 10/17/22 meclizine 25 mg tablet 25 mg PO BID PRN dizziness #7 tabs 04/17/22 09/21/22 meclizine 25 mg tablet 25 mg PO PRN PRN 10/17/22 10/17/22 penicillin V potassium 500 mg 500 mg PO QID #28 tabs 10/17/22 tablet Previous Rx's Medication Instructions Recorded meclizine 25 mg tablet 25 mg PO BID PRN dizziness #7 tabs 04/17/22 penicillin V potassium 500 mg 500 mg PO QID #28 tabs 10/17/22 tablet Allergies Allergy/AdvReac Type Severity Reaction Status Date / Time lisinopril AdvReac Mild cough Verified 10/17/22 16:52 ibuprofen AdvReac Other (See Unverified 10/17/22 16:53 Comment) trazodone AdvReac dry mouth Verified 10/17/22 16:52 General Stated Complaint: DentalOral TETE: 4 Review of Systems All systems reviewed & are unremarkable except as noted in HPI and below PFSH All Active Problems (Updated 10/17/22 @ 17:27 by Marialuisa Becerra NP) Dental infection (Acute) Coronary artery disease (Chronic) 12/18/21 pt had PTCA w stent to LAD at [facility] Abnormal nuclear stress test (Acute) Paroxysmal atrial flutter (Acute) Trochanteric bursitis, right hip (Acute) Pes anserinus bursitis of left knee (Acute) Osteoarthritis of left knee (Acute) Steroid injection: 12/16/2020 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) Insomnia (Acute) Presbycusis of both ears (Acute) BRAXTON (obstructive sleep apnea) (Chronic) Morbid obesity (Acute) Hypercholesterolemia (Acute) Primary hypertension (Acute) Benign prostatic hyperplasia with urinary frequency (Acute) Medical History Atrial flutter Kidney stone Social History Smoking/Tobacco Use Status: Former Tobacco Use Smoking risk assessment performed?: Yes Alcohol Intake: former Substance use type: does not use Housing: house Do you feel safe at home: Yes Do you feel safe in your relationship?: Yes Exam HENMT Teeth and gingiva: caries and poor dentition (Buildup on teeth gingivitis) Teeth image: 1. Fractured tooth Resp Effort & Inspection: normal respiratory effort Cardio Rate: regular rate Rhythm: regular rhythm Neuro General: patient alert, patient awake and patient oriented x3 Course Vital Signs Vital signs: Vital Signs Temperature 36.9 C 10/17/22 16:47 Pulse 61 10/17/22 16:47 Respiratory Rate 18 10/17/22 16:47 Blood Pressure 173/95 H 10/17/22 16:47 Pulse Oximetry 100 10/17/22 16:47 Temperature 36.9 C 10/17/22 16:47 Temperature Source Skin 10/17/22 16:47 Pulse 61 10/17/22 16:47 Respiratory Rate 18 10/17/22 16:47 Blood Pressure 173/95 H 10/17/22 16:47 Blood Pressure Position Sitting 10/17/22 16:47 Pulse Oximetry 100 10/17/22 16:47 Oxygen Delivery Method Room Air 10/17/22 16:47 Oxygen Flow Rate 0 10/17/22 16:47 Pain Level 5 10/17/22 16:47
[2022-10-17 17:40] VITALS: BP 145/90; PULSE 61; RESP 18; TEMP 36.9; O2SAT 100
[2022-10-17] MEDS: Penicillin V POTASSIUM 500 MG TAB, 4 TABS/BTL PO (17:41)
== END 2022-10-17 17:42 | disposition home or self-care (01) ==
PROVIDERS: Emergency Provider Nurse Practitioner Acute Care; PCP Internal Medicine
DX: R68.84 Jaw pain (principal)
CPT/HCPCS: 99283; 99284

== ENCOUNTER 2022-12-03 11:23 | Outpatient (CLI) | payer MEDICARE, BC, SELFPAY ==
--- NOTE | 2022-12-03 11:45 | RT.EKG_ITS ---
APPROVED REPORT Exam: Resting ECG Reason for Exam: afib Patient Location: O HR:77 bpm ECG Measurements Heart Rate 77 AXIS KS [id number] P [id number] QRSd 136 QRS -75 QT 388 T 3 QTc 440 Conclusion Atrial flutter with predominant 4:1 AV block...A-rate 306, multiple Ps Right bundle branch block...QRSd>120, terminal axis(90,270)
== END 2022-12-03 11:24 | disposition home or self-care (01) ==
LOC: DI.CARD 11:45
PROVIDERS: PCP Internal Medicine; Referring Provider Internal Medicine; Visit Provider Internal Medicine Cardiovascular Disease
DX: I48.92 Unspecified atrial flutter (principal)
CPT/HCPCS: 93010

== ENCOUNTER → 2022-12-03 11:23 | Outpatient (BNVA) | payer MEDICARE, BC, SELFPAY | PROVIDERS: PCP Internal Medicine; Referring Provider Internal Medicine; Visit Provider Internal Medicine Cardiovascular Disease | DX: Z79.01 Long term (current) use of anticoagulants (principal); I25.10 Atherosclerotic heart disease of native coronary artery without angina pectoris; I48.92 Unspecified atrial flutter | CPT/HCPCS: 93005; 99214 ==

== ENCOUNTER → 2023-03-04 10:44 | Outpatient (BNVA) | payer MEDICARE, BC, SELFPAY | PROVIDERS: PCP Internal Medicine; Visit Provider Internal Medicine Interventional Cardiology | DX: I25.10 Atherosclerotic heart disease of native coronary artery without angina pectoris (principal); I10 Essential (primary) hypertension; I48.92 Unspecified atrial flutter | CPT/HCPCS: 99213 ==

== ENCOUNTER 2023-05-16 14:58 | Emergency (ER) | payer MEDICARE, BC, SELFPAY ==
[2023-05-16] VITALS (17 sets, daily range): BP systolic 98–157; BP diastolic 50–65; PULSE 45–63; RESP 13–28; TEMP 37.7; O2SAT 93
--- NOTE | 2023-05-16 15:00 | RT.EKG_ITS ---
APPROVED REPORT Exam: Resting ECG Reason for Exam: Chest Pain Patient Location: E HR:59 bpm ECG Measurements Heart Rate 59 AXIS FL 229 P 47 QRSd 136 QRS -11 QT 446 T 0 QTc 424 Conclusion Sinus bradycardia...rate< 60 Atrial premature complexes...SV complexes w/ short R-R intvls Prolonged FL interval...FL >220, V-rate 50- 90 IVCD, consider RBBB...QRSd>120mS, terminal axis(90,270) Consider anterior infarct...Q >30mS in V2-V5
--- NOTE | 2023-05-16 15:00 | DI.RAD_ITS ---
Exam(s) XR PORTABLE CHEST AP EXAM: XR PORTABLE CHEST AP CLINICAL HISTORY: weakness. TECHNIQUE: 2D digital imaging was performed. COMPARISON: CR XR CHEST 2V PA LATERAL from 08/26/2022 FINDINGS: Single AP portable view. Mild cardiac again noted. Mediastinum is not widened. No infiltrates nor pleural effusions. No pul monary edema. No pneumothorax IMPRESSION: No acute pulmonary findings on this single AP portable view of the chest. DATA REPOSITORY: RADIATION DOSE DELIVERED:
--- NOTE | 2023-05-16 15:00 | DI.CT_ITS ---
Exam(s) CT HEAD WO EXAM: CT HEAD WO CLINICAL HISTORY: weakness. TECHNIQUE: Imaging Protocol: Axial computed tomography images with coronal and sagittal reformatted images were created and reviewed COMPARISON: No exams were available for comparison FINDINGS: There are no skull fractures. There is no fluid in the visualized paranasal sinuses. There is no evidence of intracranial hemorrhage, mass effect, or shift of midline structures. There are no extra-axial fluid collections. The ventricles are not enlarged or shifted and there is no blo od within the ventricular system nor within the basal cisterns. Symmetrical involutional change noted. Some mild bilateral periventricular hypodensity consistent wi th chronic small vessel disease. No acute infarct evident. IMPRESSION: No acute intracranial findings on this noninfused CT scan of the brain. Chronic involutional changes. RADIATION DOSE DELIVERED: Total DLP DATA REPOSITORY: All CT scans at this facility are submitted to the National Radiology Data Registry (NRDR) Dose Index Registry (DIR) with the [employer] ([employer]). RADIATION OPTIMIZATION: All CT scans at this facility use at least one of these dose optimization te chniques: automated exposure control; mA and/or kV adjustment per patient size (includes targeted exa ms where dose is matched to clinical indication); or iterative reconstruction.
--- NOTE | 2023-05-16 15:00 | RT.EKG_ITS ---
APPROVED REPORT Exam: Resting ECG Reason for Exam: weakness Patient Location: E HR:66 bpm ECG Measurements Heart Rate 66 AXIS ID 213 P 52 QRSd 131 QRS -18 QT 408 T 5 QTc 418 Conclusion Sinus rhythm...normal P axis, V-rate 60- 99 Atrial premature complexes...SV complexes w/ short R-R intvls Borderline prolonged ID interval...ID >212, V-rate 50- 90 IVCD, consider RBBB...QRSd>120mS, terminal axis(90,270) Anteroseptal infarct, age indeterminate...Q >35mS, T neg, V1-V2 No ST segment or T wave abnormalities to suggest occlusive ME
--- NOTE | 2023-05-16 15:14 | ED.GENADUL_ITS ---
Discharge Plan Disposition Patient Disposition: Home Discharge Details Clinical Impression: Weakness, Acute UTI Primary Care Provider: Sadi Rogers ED Provider: Salvador Ortega Home Meds and New Rx's Prescriptions: New cephalexin 500 mg capsule 500 mg PO QID 5 Days Qty: 20 0RF No Action cholecalciferol (vitamin D3) 125 mcg (5,000 unit) capsule 125 mcg PO DAILY losartan 50 mg tablet 50 mg PO DAILY metformin 1,000 mg tablet 1,000 mg PO BID tamsulosin [Flomax] 0.4 mg capsule 0.4 mg PO QHS Patient Comments: not taking saw palmetto 500 mg capsule 1,000 mg PO DAILY Rx Instructions: give with food (meal/snack) diphenhydramine HCl [Allergy (diphenhydramine)] 25 mg capsule 25 mg PO QHS PRN Patient Comments: not taking rosuvastatin 20 mg tablet 20 mg PO DAILY melatonin 5 mg capsule 5 mg PO DAILY PRN glipizide 5 mg tablet 2.5 mg PO DAILY finasteride 5 mg tablet 5 mg PO DAILY furosemide 20 mg tablet 20 mg PO DAILY PRN Patient Comments: pt doesnt take, PRN metoprolol succinate 50 mg tablet extended release 24 hr 50 mg PO DAILY Qty: 90 3RF Xarelto 20 mg tablet 20 mg PO DAILY Rx Instructions: must administer with evening meal Discharge Instructions Instructions: Urinary Tract Infection in Men (ED), Weakness (ED) Additional Instructions: You were seen in the emergency department for weakness. We performed labs, EKG, chest x-ray, and CAT scan your head that were all unremarkable. Your COVID flu and RSV testing were negative. Your testing argues against a UTI but given your symptoms and presentation we treated you for UTI with significant improvement in your symptoms with antibiotics and IV fluids. He felt better and wanted to leave which I think is reasonable. Take the prescribed antibiotics to treat a possible UTI. Please return to the emergency department for worsening weakness, chest pain, headache, or if you have any other concerns. Follow-up with your primary care doctor soon as possible. Referrals: Sadi Rogers [Primary Care Provider] - 1 week HPI General Mode of arrival: ambulatory . Date/Time Provider Initiated Documentation: 05/16/23 15:02 . Limitations to Documentation: no limitations . Information obtained by: patient and family . HPI Narrative: 77-year-old male history of CAD, hypertension, hyperlipidemia, type 2 diabetes, paroxysmal A-fib on rivaroxaban presents with weakness. Been going on since last night. He feels so weak he can even walk around his house. He has not had increased urination over this time. No fevers or chills. No abdominal pain. 1 episode of nausea and vomiting but otherwise taking p.o. No diarrhea or constipation and still farting normally. No black or bloody stools. was worried with how weak he was so she brought him here to the emergency department. Related Data Home Medications Medication Instructions Recorded Confirmed cholecalciferol (vitamin D3) 125 125 mcg PO DAILY 12/10/20 05/16/23 mcg (5,000 unit) capsule losartan 50 mg tablet 50 mg PO DAILY 12/10/20 05/16/23 metformin 1,000 mg tablet 1,000 mg PO BID 12/10/20 05/16/23 saw palmetto 500 mg capsule 1,000 mg PO DAILY 12/10/20 05/16/23 tamsulosin 0.4 mg capsule (Flomax) 0.4 mg PO QHS 12/10/20 05/16/23 rivaroxaban 20 mg tablet (Xarelto) 20 mg PO DAILY 09/17/21 05/16/23 diphenhydramine HCl 25 mg capsule 25 mg PO QHS PRN 12/08/21 05/16/23 (Allergy (diphenhydramine)) melatonin 5 mg capsule 5 mg PO DAILY PRN 01/26/22 05/16/23 rosuvastatin 20 mg tablet 20 mg PO DAILY 01/26/22 05/16/23 finasteride 5 mg tablet 5 mg PO DAILY 12/03/22 05/16/23 furosemide 20 mg tablet 20 mg PO DAILY PRN 12/03/22 05/16/23 glipizide 5 mg tablet 2.5 mg PO DAILY 12/03/22 05/16/23 metoprolol succinate 50 mg 50 mg PO DAILY #90 tabs 12/03/22 05/16/23 tablet,extended release 24 hr cephalexin 500 mg capsule 500 mg PO QID 5 days #20 caps 05/16/23 Previous Rx's Medication Instructions Recorded metoprolol succinate 50 mg 50 mg PO DAILY #90 tabs 12/03/22 tablet,extended release 24 hr cephalexin 500 mg capsule 500 mg PO QID 5 days #20 caps 05/16/23 Allergies Allergy/AdvReac Type Severity Reaction Status Date / Time lisinopril AdvReac Mild cough Verified 05/16/23 15:07 ibuprofen AdvReac Other (See Verified 05/16/23 15:07 Comment) trazodone AdvReac dry mouth Verified 05/16/23 15:07 General Stated Complaint: AMS/LOC TETE: 3 Review of Systems Constitutional Constitutional: Denies headache(s), Reports malaise and Reports weakness Eyes Eyes: Denies change in vision ENT Ears, Nose, Mouth, and Throat: Denies headache(s) and Denies odynophagia Cardiovascular Cardiovascular: Denies chest pain and Denies dyspnea Respiratory Respiratory: Denies dyspnea Gastrointestinal Gastrointestinal: Denies abdominal pain, Denies diarrhea, Denies nausea, Denies odynophagia and Denies vomiting Genitourinary Genitourinary: Denies dysuria, Denies testicular pain and Reports urinary frequency Musculoskeletal Musculoskeletal: Denies myalgias Integumentary/Breasts Skin/Breast: Denies changing lesions Neurologic Neurologic: Denies behavioral changes, Denies headache(s) and Reports weakness Psychiatric Psychiatric: Denies behavioral changes Endocrine Endocrine: Denies heat intolerance Hematologic/Lymphatic Hematologic/Lymphatic: Denies lymphadenopathy Exam Const General: cooperative Nutritional Appearance: average body habitus Orientation: alert, awake and oriented x3 [facility] Head: normal to inspection Ears: external ears normal Mouth: moist mucous membranes Eyes Pupils: PERRL EOM: EOM intact bilaterally and No nystagmus Neck Neck: full ROM and no tracheal deviation Chest Chest: normal inspection of the chest Resp Auscultation: clear to auscultation bilaterally Cardio Rate: regular rate Rhythm: regular rhythm GI Inspection: normal to inspection Palpation: soft, no guarding, not rigid and nontender Back/Spine/Pelvis Back: No no CVA tenderness Thoracic/Lumbar Spine: thoracic and lumbar spine normal to inspection Skin General skin exam: no rashes or lesions noted Neuro General: patient alert, patient awake, patient oriented x3, gait normal, moves all extremities, normal light touch, pain and propioception, no meningeal signs, no focal motor deficits and CN's II-XI intact bilaterally Cranial Nerves: CN's II-XI intact bilaterally, PERRL and no nystagmus Cognition: normal cognition Speech: speech normal Gait: normal gait Motor: muscle tone normal throughout and strength 5/5 throughout Sensory Exam: no sensory deficits noted Coordination: [id number] test normal, euyb-wh-lwyb test normal and Romberg test normal Pupils: Normal pupillary reactivity/response: bilateral Extrem General: normal to inspection Course Vital Signs Vital signs: Vital Signs Temperature 37.7 C H 05/16/23 15:01 Pulse 57 L 05/16/23 15:01 Respiratory Rate 28 H 05/16/23 15:01 Blood Pressure 155/52 H 05/16/23 15:01 Pulse Oximetry 93 05/16/23 15:01 Temperature 37.7 C H 05/16/23 15:01 Temperature Source Oral 05/16/23 15:01 Pulse 57 L 05/16/23 15:01 Respiratory Rate 28 H 05/16/23 15:01 Respiratory Effort Short of Breath, Accessory Muscle Use 05/16/23 15:11 Blood Pressure 155/52 H 05/16/23 15:01 Blood Pressure Position Supine 05/16/23 15:01 Pulse Oximetry 93 05/16/23 15:01 Oxygen Delivery Method Room Air 05/16/23 15:01 Oxygen Flow Rate 0 05/16/23 15:01 Pain Level 5 05/16/23 15:01 Lab/Test Results Lab/Test Results: 05/16/23 15:11 Blood Blood Culture - Pending 05/16/23 15:11 Blood Blood Culture - Pending Medical Decision Making 77-year-old male history of CAD, hypertension, hyperlipidemia, type 2 diabetes, paroxysmal A-fib on rivaroxaban presents with weakness. Differential is broad. Low-grade fever here. Not meeting sepsis criteria. Certainly infection is a concern. No focal signs of infection on exam or history other than some urinary frequency. Will check urinalysis to look for UTI. Will get x-ray to look for pneumonia. Will swab for COVID/flu/RSV. No abdominal tenderness to suggest intra-abdominal abscess. No headache or meningismus to suggest meningitis. No rashes or lesions to suggest a cellulitis or soft tissue infection. Will still obtain blood cultures and give some IV fluids while awaiting initial testing. He has a nonfocal neurologic exam so I do not think he is having a stroke. His coordination and gait are intact despite the weakness so I do not think he is having a posterior stroke. Is on a blood thinner so we will get CT head without contrast to rule out intracranial hemorrhage or subdural hemorrhage. Will get broad labs to look for electrolyte or metabolic cause of the patient's symptoms. Will await initial testing and response to treatment and reevaluate. 446pm reeval Labs unremarkable other than lactic acidosis. Chest x-ray and COVID/flu/RSV swabs are all unremarkable. EKG is nonischemic and cardiac enzymes unremarkable. He feels markedly improved and symptom-free after IV fluids and a single dose of IV antibiotics here. Urine testing argues against UTI but will still cover with antibiotics given the patient's presentation. I offered to let him stay for further observation but he feels comfortable going home. Will discharge with strict return precautions. Imaging Data Radiologic Study: Imaging: CT Scan (head) My impression: Unremarkable Radiologic Study #2: Imaging: X-Ray (chest) Radiologist's impression: unremarkable Lab Data Lab results reviewed: Yes I reviewed the patient's lab results. Labs: Lactic acidosis but otherwise labs grossly unremarkable ECG Data Interpretation: Normal sinus rhythm with normal axis and normal rate. No ST or T wave changes. Otherwise unremarkable EKG Quality:SDOH Health Related Social Needs: No Data to Display [facility] All Active Problems (Updated 05/16/23 @ 16:48 by Salvador Ortega MD) Acute UTI (Acute) Weakness (Acute) Coronary artery disease (Chronic) 12/18/21 pt had PTCA w stent to LAD at [facility] Abnormal nuclear stress test (Acute) Paroxysmal atrial flutter (Acute) Trochanteric bursitis, right hip (Acute) Pes anserinus bursitis of left knee (Acute) Osteoarthritis of left knee (Acute) Steroid injection: 12/16/2020 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) Insomnia (Acute) Presbycusis of both ears (Acute) BRAXTON (obstructive sleep apnea) (Chronic) Morbid obesity (Acute) Hypercholesterolemia (Acute) Primary hypertension (Acute) Benign prostatic hyperplasia with urinary frequency (Acute) Medical History Atrial flutter Kidney stone Social History Smoking/Tobacco Use Status: Former Tobacco Use Smoking risk assessment performed?: Yes Alcohol Intake: former Drug use: Never Substance use type: does not use Housing: house Do you feel safe at home: Yes Do you feel safe in your relationship?: Yes
[2023-05-16] MEDS: Normal Saline 1,000 ML 1000 ML IV (15:26)
[2023-05-16 15:38] LABS: BE (Venous) -2 mmol/L (-2-3); HCO3 (Venous) 23 mmol/L (23-28); O2 Sat (Venous) 93 %; TCO2 (Venous) 21 mmol/L (24-29); pCO2 (Venous) 36 mmHg (41-51); pH (Venous) 7.41 (7.31-7.41); pO2 (Venous) 61 mmHg
[2023-05-16 15:40] LABS: Lactate 3.5 mmol/L (0.6-1.4)
[2023-05-16 15:42] LABS: Abs Immature Grans 0.03 10^3/uL (0.0-0.06); Absolute Basophil Count 0.01 10^3/uL (0.0-0.2); Absolute Lymphocyte Count 0.23 10^3/uL (1.2-3.4); Absolute Monocyte Count 0.38 10^3/uL (0.1-0.8); Absolute Neutrophil Count 3.46 10^3/uL (1.2-6.7); Basophils % 0.2; HCT 37.9 % (40.0-50.0); HGB 12.9 g/dL (13.5-17.5); Immature Grans % 0.7; Lymphocytes % 5.6; MCH 31.3 pg (27.0-33.0); MCV 92 fL (80-95); MPV 10.8 fL (8.0-11.0); Monocytes % 9.2; Neutrophils % 84.3; Platelet Count 104 10^3/uL (130-400); RBC 4.12 10^6/uL (4.36-5.78); RDW 12.9 % (11.8-14.1); RDW-SD 43.6 fL; WBC 4.11 10^3/uL (4.4-10.8)
[2023-05-16 15:54] LABS: INR 1.4 (0.9-1.1); Prothrombin Time 13.8 sec (9.1-11.1)
[2023-05-16 15:56] LABS: Bilirubin Small (Negative); Blood Negative (Negative); Clarity Clear (Clear); Glucose 250 mg/dL (Negative); Ketones 15 mg/dL (Negative); Leukocyte Esterase Negative (Negative); Nitrite Negative (Negative); Specific Gravity >= 1.030 (1.005-1.025); pH 5.5 (5-8)
[2023-05-16 16:16] LABS: ALT 27 U/L (16-63); AST 30 U/L (15-37); Albumin 3.2 g/dL (3.4-5.0); Alkaline Phosphatase 38 U/L (46-116); Anion Gap 10.6 mmol/L (3-11); BUN 16 mg/dL (7-18); Bilirubin, Total 0.9 mg/dL (0.2-1.0); CO2 23.4 mmol/L (21.0-32.0); CREATININE 1.2 mg/dL (0.70-1.30); Calcium 8.1 mg/dL (8.5-10.1); Chloride 101 mmol/L (98-107); ETHANOL BLOOD < 3.0 mg/dL (<10); Glucose 170 mg/dL (74-106); Lipase 12 U/L (16-77); Magnesium 1.5 mg/dL (1.8-2.4); NT-proBNP 1067 pg/mL (<300); Potassium 3.9 mmol/L (3.5-5.1); Sodium 135 mmol/L (136-145); Total Protein 6.3 g/dL (6.4-8.2); Troponin I < 50 ng/L (< or =60)
[2023-05-16 16:21] LABS: COVID-19 PCR Negative (Negative); Influenza A PCR Negative (Negative); Influenza B PCR Negative (Negative); RSV PCR Negative (Negative)
[2023-05-16 16:25] LABS: Source NASOPHARYNX
--- NOTE | 2023-05-16 16:27 | DI.VRAD_ITS ---
PROCEDURE INFORMATION: Exam: XR Chest Exam date and time: 05/16/2023 3:41 PM Age: 77 years old Clinical indication: Other: Weakness TECHNIQUE: Imaging protocol: Radiologic exam of the chest. Views: 1 view. Other technique: Portable exam. COMPARISON: CR XR CHEST 2V PA LATERAL 08/26/2022 7:38 AM FINDINGS: Lungs: Probable minimal left lower lobe atelectasis. Pleural spaces: Unremarkable. No pleural effusion. No pneumothorax. Heart/Mediastinum: Cardiomegaly. Bones/joints: Unremarkable. Soft tissues: There is mild overlying chin artifact. IMPRESSION: Mild left lower lobe atelectasis. Dictated and Authenticated by: Cleo Nunez MD. Ordering:MARTINE Franco MD
[2023-05-16] MEDS: cefTRIAXone 2 GM/50 ML BAG IVPB (16:39)
--- NOTE | 2023-05-16 16:48 | DI.VRAD_ITS ---
PROCEDURE INFORMATION: Exam: CT Head Without Contrast Exam date and time: 05/16/2023 4:26 PM Age: 77 years old Clinical indication: Other: Weakness TECHNIQUE: Imaging protocol: Computed tomography of the head without contrast. Radiation optimization: All CT scans at this facility use at least one of these dose optimization techniques: automated exposure control; mA and/or kV adjustment per patient size (includes targeted exams where dose is matched to clinical indication); or iterative reconstruction. COMPARISON: No relevant prior studies available. FINDINGS: Brain: Cerebral volume loss noted. Scattered areas of decreased attenuation in the deep periventricular white matter consistent with small vessel ischemic change. No evidence for acute intracranial hemorrhage. Cerebral ventricles: No ventriculomegaly. Paranasal sinuses: Moderate mucoperiosteal thickening noted in the ethmoid air cells. Mastoid air cells: Visualized mastoid air cells are well aerated. Bones/joints: Unremarkable. No acute fracture. Soft tissues: Unremarkable. IMPRESSION: Senescent changes noted. No acute intracranial abnormality. Dictated and Authenticated by: Cleo Nunez MD. Ordering:MARTINE Franco MD
== END 2023-05-16 17:12 | disposition home or self-care (01) ==
PROVIDERS: Emergency Provider Student in an Organized Health Care Education/Training Program; PCP Internal Medicine
DX: R53.1 Weakness (principal); N39.0 Urinary tract infection, site not specified; I25.10 Atherosclerotic heart disease of native coronary artery without angina pectoris; I10 Essential (primary) hypertension; E78.5 Hyperlipidemia, unspecified; I48.0 Paroxysmal atrial fibrillation; E11.9 Type 2 diabetes mellitus without complications; Z79.84 Long term (current) use of oral hypoglycemic drugs; Z79.01 Long term (current) use of anticoagulants; Z79.899 Other long term (current) drug therapy
CPT/HCPCS: 80053; 82805; 83690; 87040; 87637; 93005; 96361; 96365; 99285; 70450; 71045; 80320; 81003; 83605; 83735; 83880; 84484; 85025; 85610; 87086; 93010; 99284; J0696

== ENCOUNTER 2023-05-17 00:57 | Inpatient (IN) | payer MEDICARE, BC, SELFPAY ==
[2023-05-17] VITALS (66 sets, daily range): BP systolic 128–205; BP diastolic 54–78; PULSE 50–87; RESP 15–31; TEMP 36.3–40.2; O2SAT 89–97
--- NOTE | 2023-05-17 01:00 | DI.CT_ITS ---
Exam(s) CT CHEST/ABD/PEL W EXAM: CT CHEST/ABD/PEL W CLINICAL HISTORY: fever of unkonwn origin, lactic acidosis, weak. TECHNIQUE: Imaging Protocol: Axial computed tomography images with coronal and sagittal reformatted images were created and reviewed CONTRAST MATERIAL: Intravenous: Omnipaque 350 Contrast volume:100 ml Oral: None COMPARISON: CT CT ABDOMEN PELVIS WO from 04/25/2022 CR XR CHEST 2V PA LATERAL from 08/26/2022 FINDINGS: CHEST: LUNGS: There are few small right lung nodules, the largest measuring 5-6 mm in. In the opposite-left lung there is a small calcified granuloma in the posterior basal segment of the left lower lobe, unc hanged. There are no pleural effusions. MEDIASTINUM: There is no hilar nor mediastinal adenopathy. Visualized thyroid unremarkable. CARDIAC: Mild cardiomegaly. Coronary artery calcification. There is a pericardial effusion mild siz e. The ascending thoracic aorta is dilated measuring 4.4 cm. There is no dissection. The diameter of the aortic arch is 3 cm. The diameter of the proximal descending thoracic aorta is 3 cm. Diamete r of the mid descending thoracic aorta is 3 cm. No dissection. ABDOMEN: There is evidence of previous surgery in the region of the stomach no evidence of extra luminal air. No abscess. No bowel obstruction evident. There is no ascites. LIVER: There are no focal hepatic lesions nor dilatation of intrahepatic ducts. GALLBLADDER/BILIARY: No obvious gallbladder pathology. CBD is not dilated. PANCREAS: No evidence of pancreatic mass nor dilatation of the pancreatic duct. SPLEEN: Spleen is not enlarged. There are no intrasplenic lesions. Splenic and portal veins are rousseau nt. ADRENALS: Left adrenal gland unremarkable. There is an nodule in the right adrenal gland measuring 2 .6 x 1.5 cm. Unchanged in size from CT scan of April 2022 and therefore probably a benign adenoma. KIDNEYS: No calculi nor hydronephrosis. No solid renal masses. Small sub cm cortical cyst in the left kidney noted. No solid renal masses nor calculi nor hydronephrosis. ABDOMINAL AORTA: Abdominal aorta is not enlarged. LYMPH NODES: There is no retroperitoneal nor paraaortic adenopathy. ABDOMINAL WALL: No evidence of anterior abdominal hernia. Fat only containing left inguinal hernia n oted. GI: There is no evidence of bowel obstruction. PELVIS: LYMPH NODES: There is no intrapelvic nor inguinal adenopathy. GI: Appendix not identified but no evidence of obvious acute appendicitis.Sigmoid diverticuli without evidence of acute diverticulitis. URINARY BLADDER: No calculi nor masses evident REPRODUCTIVE: Enlarged prostate gland. Measures 6 cm wide by 5.5 cm AP OSSEOUS: No significant osseous lesions. No fractures. IMPRESSION: 1. No pulmonary infiltrates nor pleural effusions. 2. Few small right lung nodules are noted measuring up to [address] scan in 6 months 3. Small pericardial effusion noted 4. Stable 26 x 15 mm right adrenal nodule which is unchanged from 1 year ago and most probably a ming gn adenoma. Left adrenal gland unremarkable. 5. Sigmoid diverticuli but no evidence of acute diverticulitis. Enlarged prostate gland. RADIATION DOSE DELIVERED: Total DLP DATA REPOSITORY: All CT scans at this facility are submitted to the National Radiology Data Registry (NRDR) Dose Index Registry (DIR) with the [employer] ([employer]). RADIATION OPTIMIZATION: All CT scans at this facility use at least one of these dose optimization te chniques: automated exposure control; mA and/or kV adjustment per patient size (includes targeted exa ms where dose is matched to clinical indication); or iterative reconstruction.
[2023-05-17] MEDS: Omnipaque 350 MG/ML 100 ML BTL IJ (01:28)
[2023-05-17] MEDS: Normal Saline - Diluent 50 ML VIAL IJ (01:29)
[2023-05-17] MEDS: Normal Saline Flush 10 ML SYR IVP (01:29)
[2023-05-17 01:32] LABS: Abs Immature Grans 0.03 10^3/uL (0.0-0.06); Absolute Basophil Count 0.01 10^3/uL (0.0-0.2); Absolute Lymphocyte Count 0.28 10^3/uL (1.2-3.4); Absolute Neutrophil Count 2.66 10^3/uL (1.2-6.7); Basophils % 0.3; HCT 37.7 % (40.0-50.0); HGB 12.8 g/dL (13.5-17.5); Immature Grans % 0.9; Lymphocytes % 8.3; MCH 31.4 pg (27.0-33.0); MCV 92 fL (80-95); MPV 10.5 fL (8.0-11.0); Monocytes % 11.8; Neutrophils % 78.7; RBC 4.08 10^6/uL (4.36-5.78); RDW 13.1 % (11.8-14.1); RDW-SD 44.4 fL; WBC 3.38 10^3/uL (4.4-10.8)
[2023-05-17 01:34] LABS: Lactate 2.7 mmol/L (0.6-1.4)
[2023-05-17 01:44] LABS: Platelet Count 91 10^3/uL (130-400)
[2023-05-17 01:52] LABS: ALT 26 U/L (16-63); AST 32 U/L (15-37); Albumin 3.3 g/dL (3.4-5.0); Alkaline Phosphatase 39 U/L (46-116); Anion Gap 9.5 mmol/L (3-11); BUN 16 mg/dL (7-18); Bilirubin, Total 0.9 mg/dL (0.2-1.0); CO2 25.5 mmol/L (21.0-32.0); CREATININE 1.2 mg/dL (0.70-1.30); Calcium 8.1 mg/dL (8.5-10.1); Chloride 101 mmol/L (98-107); Glucose 110 mg/dL (74-106); Magnesium 1.5 mg/dL (1.8-2.4); NT-proBNP 1312 pg/mL (<300); Potassium 3.8 mmol/L (3.5-5.1); Sodium 136 mmol/L (136-145); Total Protein 6.5 g/dL (6.4-8.2); Troponin I < 50 ng/L (< or =60)
[2023-05-17] MEDS: Normal Saline 1,000 ML 1000 ML IV (02:02)
[2023-05-17 02:16] LABS: Reticulocyte 2.1 % (0.5-2.4)
[2023-05-17 02:18] LABS: ESR 6 mm/hr (0-20)
[2023-05-17 02:29] LABS: INR 1.8 (0.9-1.1); PTT Activated 36.3 sec (23.6-32.8); Prothrombin Time 17.3 sec (9.1-11.1)
[2023-05-17 02:31] LABS: C-Reactive Protein 5.21 mg/dL (<or=0.5); LDH 203 U/L (85-227); PHOSPHORUS 2.6 mg/dL (2.6-4.7); Uric Acid 3.5 mg/dL (3.5-7.2)
--- NOTE | 2023-05-17 02:36 | ED.GENADUL_ITS ---
Discharge Plan Disposition Patient Disposition: Admit to [facility] Condition: Serious Discharge Details Clinical Impression: Pancytopenia, High serum lactate, Weakness Primary Care Provider: Sadi Rogers ED Provider: Moriah Bass Home Meds and New Rx's Prescriptions: No Action cholecalciferol (vitamin D3) 125 mcg (5,000 unit) capsule 125 mcg PO DAILY losartan 50 mg tablet 50 mg PO DAILY metformin 1,000 mg tablet 1,000 mg PO BID tamsulosin [Flomax] 0.4 mg capsule 0.4 mg PO QHS Patient Comments: not taking saw palmetto 500 mg capsule 1,000 mg PO DAILY Rx Instructions: give with food (meal/snack) diphenhydramine HCl [Allergy (diphenhydramine)] 25 mg capsule 25 mg PO QHS PRN Patient Comments: not taking rosuvastatin 20 mg tablet 20 mg PO DAILY melatonin 5 mg capsule 5 mg PO DAILY PRN glipizide 5 mg tablet 2.5 mg PO DAILY finasteride 5 mg tablet 5 mg PO DAILY furosemide 20 mg tablet 20 mg PO DAILY PRN Patient Comments: pt doesnt take, PRN metoprolol succinate 50 mg tablet extended release 24 hr 50 mg PO DAILY Qty: 90 3RF Xarelto 20 mg tablet 20 mg PO DAILY Rx Instructions: must administer with evening meal cephalexin 500 mg capsule 500 mg PO QID 5 Days Qty: 20 0RF HPI General Mode of arrival: EMS . Date/Time Provider Initiated Documentation: 05/17/23 01:01 . Limitations to Documentation: no limitations . Information obtained by: patient, family, EMS and old records reviewed . HPI Narrative: 77yo M with hx of HTN, HLD, T2DM, CAD s/p stent, afib on rivaroxaban, presenting for two days of diffuse weakness. Seen in this ED yesterday and discharged home on course of abx for possible UTI. Since then he has continued to feel weak, somewhat worse than yesterday, tonight unable to get out of bed to get to the bathroom (reports he slid to the floor). Did not strike his head or lose consciousness. Denies any pain or injury. Has felt intermittently lightheaded; when he feels lightheaded he also feels nauseated. Vomited x [address] way. Currently no nausea. Short of breath with minimal exertion (i.e. trying to get off the floor at home), no shortness of breath at rest. No focal weakness, just 'all over'. No numbness, tingling, vertigo, or vision changes. No abdominal pain or diarrhea. No chest pain. No dysuria or hematuria. No fevers at home, EMS reprots temp of 102F . Otherwise in his usual state of health with no chills, rash, constipation, dark stool, bloody stool, nosebleeds, easy bruising, or other concerns. Related Data Home Medications Medication Instructions Recorded Confirmed cholecalciferol (vitamin D3) 125 125 mcg PO DAILY 12/10/20 05/17/23 mcg (5,000 unit) capsule losartan 50 mg tablet 50 mg PO DAILY 12/10/20 05/17/23 metformin 1,000 mg tablet 1,000 mg PO BID 12/10/20 05/17/23 saw palmetto 500 mg capsule 1,000 mg PO DAILY 12/10/20 05/17/23 tamsulosin 0.4 mg capsule (Flomax) 0.4 mg PO QHS 12/10/20 05/17/23 rivaroxaban 20 mg tablet (Xarelto) 20 mg PO DAILY 09/17/21 05/17/23 diphenhydramine HCl 25 mg capsule 25 mg PO QHS PRN 12/08/21 05/17/23 (Allergy (diphenhydramine)) melatonin 5 mg capsule 5 mg PO DAILY PRN 01/26/22 05/17/23 rosuvastatin 20 mg tablet 20 mg PO DAILY 01/26/22 05/17/23 finasteride 5 mg tablet 5 mg PO DAILY 12/03/22 05/17/23 furosemide 20 mg tablet 20 mg PO DAILY PRN 12/03/22 05/17/23 glipizide 5 mg tablet 2.5 mg PO DAILY 12/03/22 05/17/23 metoprolol succinate 50 mg 50 mg PO DAILY #90 tabs 12/03/22 05/17/23 tablet,extended release 24 hr cephalexin 500 mg capsule 500 mg PO QID 5 days #20 caps 05/16/23 05/17/23 Previous Rx's Medication Instructions Recorded metoprolol succinate 50 mg 50 mg PO DAILY #90 tabs 12/03/22 tablet,extended release 24 hr cephalexin 500 mg capsule 500 mg PO QID 5 days #20 caps 05/16/23 Allergies Allergy/AdvReac Type Severity Reaction Status Date / Time lisinopril AdvReac Mild cough Verified 05/17/23 01:03 ibuprofen AdvReac Other (See Verified 05/17/23 01:03 Comment) trazodone AdvReac dry mouth Verified 05/17/23 01:03 General Stated Complaint: Fall/Non TraumaCriteria TETE: 3 Review of Systems Narrative: see HPI Exam Narrative Exam Narrative: General: Alert, well appearing, obese, in no acute distress. Head: Normocephalic, atraumatic Neck: Trachea midline, ?Neck supple. ENT: ?MMM.? Cardiac: ?RRR, no murmurs appreciated Resp: No respiratory distress. CTAB. Abd: ?Soft, protuberent, nontender : ?No suprapubic tenderness. No CVA tenderness. Extremities: ?No deformities.?1+ pitting edema. BLE Neuro: ? GCS 15.? PERRL.? EOMI.? Fluent speech, no dysarthria. Motor- 4/5 strength symmetric bilateral upper and lower extremities including shoulder abductors/adductors, elbow flexors/extensors, wrist flexors/extensors, finger abductors/adductors, hipflexors/extensors, knee flexors/extensors, ankle dorsiflexors and planter flexors. Sensation- ?Intact to light touch and symmetric multiple dermatomes including upper and lower extremities Coordination- No dysmetria on finger to nose CRANIAL NERVES: II: Pupils equal and reactive, III, IV, : EOM intact, no gaze preference or deviation, no nystagmus. V: normal sensation in V1, V2, and V3 segments bilaterally VII: no asymmetry, no nasolabial fold flattening VIII: normal hearing to speech IX, X: normal palatal elevation, no uvular deviation XI: 5/5 head turn and 5/5 shoulder shrug bilaterally XII: midline tongue protrusion Course Vital Signs Vital signs: Vital Signs Temperature 37.3 C 05/17/23 00:56 Pulse 61 05/17/23 00:56 Respiratory Rate 20 05/17/23 00:56 Blood Pressure 197/68 H 05/17/23 00:56 Pulse Oximetry 96 05/17/23 00:56 Temperature 37.3 C 05/17/23 00:56 Temperature Source Oral 05/17/23 00:56 Pulse 61 05/17/23 00:56 Respiratory Rate 20 05/17/23 00:56 Respiratory Effort Short of Breath 05/17/23 01:02 Blood Pressure 197/68 H 05/17/23 00:56 Blood Pressure Position Supine 05/17/23 00:56 Pulse Oximetry 96 05/17/23 00:56 Oxygen Delivery Method Room Air 05/17/23 00:56 Oxygen Flow Rate 0 05/17/23 00:56 Pain Level 0 05/17/23 00:56 Lab/Test Results Lab/Test Results: 05/17/23 01:10 Blood Blood Culture - Pending 05/17/23 01:19 Blood Blood Culture - Pending Laboratory Tests Range/Units 05/17/23 05/17/23 01:19 01:57 WBC (4.4-10.8) 10^3/uL 3.38 L RBC (4.36-5.78) 10^6/uL 4.08 L Hgb (13.5-17.5) g/dL 12.8 L Hct (40.0-50.0) % 37.7 L MCV (80-95) fL 92 MCH (27.0-33.0) pg 31.4 MCHC (32.0-36.0) % 34.0 RDW (11.8-14.1) % 13.1 Plt Count (130-400) 10^3/uL 91 L MPV (8.0-11.0) fL 10.5 Reticulocyte % (Auto) (0.5-2.4) % 2.1 Immature Gran % 0.9 Neutrophils % 78.7 Lymphocytes % 8.3 Monocytes % 11.8 Eosinophils % 0.0 Basophils % 0.3 Nucleated RBC % (0.0-0.3) % 0.0 Absolute Neutrophils (1.2-6.7) 10^3/uL 2.66 Absolute Lymphocytes (1.2-3.4) 10^3/uL 0.28 L Absolute Monocytes (0.1-0.8) 10^3/uL 0.40 Absolute Eosinophils (0.0-0.7) 10^3/uL 0.00 Absolute Basophils (0.0-0.2) 10^3/uL 0.01 ESR (0-20) mm/hr 6 PT (9.1-11.1) sec 17.3 H INR (0.9-1.1) 1.8 H APTT (23.6-32.8) sec 36.3 H VBG Lactate (0.6-1.4) mmol/L 2.7 H* Sodium (136-145) mmol/L 136 Potassium (3.5-5.1) mmol/L 3.8 Chloride (98-107) mmol/L 101 Carbon Dioxide (21.0-32.0) mmol/L 25.5 Anion Gap (3-11) mmol/L 9.5 BUN (7-18) mg/dL 16 Creatinine (0.70-1.30) mg/dL 1.2 Est GFR (CKD-EPI 2020) (mL/min/1.73m2) 61.90 Glucose (74-106) mg/dL 110 H Uric Acid (3.5-7.2) mg/dL 3.5 Calcium (8.5-10.1) mg/dL 8.1 L Phosphorus (2.6-4.7) mg/dL 2.6 Magnesium (1.8-2.4) mg/dL 1.5 L Total Bilirubin (0.2-1.0) mg/dL 0.9 AST (15-37) U/L 32 ALT (16-63) U/L 26 Alkaline Phosphatase (46-116) U/L 39 L Lactate Dehydrogenase (85-227) U/L 203 Troponin I (< or =60) ng/L < 50 C-Reactive Protein (<or=0.5) mg/dL 5.21 H NT-Pro-B Natriuret Pep (<300) pg/mL 1312 H Total Protein (6.4-8.2) g/dL 6.5 Albumin (3.4-5.0) g/dL 3.3 L COVID-19 Source Cancelled SARS-CoV-2 (PCR) Cancelled Influenza Type A (PCR) Cancelled Influenza Type B (PCR) Cancelled RSV (PCR) Cancelled Medical Decision Making 77yo M with hx of HTN, HLD, T2DM, CAD s/p stent, afib on rivaroxaban, presenting for two days of diffuse weakness. Seen in this ED yesterday and discharged home on course of abx for possible UTI. Since then he has continued to feel weak, somewhat worse than yesterday, tonight unable to get out of bed to get to the bathroom (reports he slid to the floor). Intermittently lightheaded; when he feels lightheaded he also feels nauseated. Vomited x 1 in the ambulance on the way. Currently no nausea. Short of breath with minimal exertion (i.e. trying to get off the floor at home), no shortness of breath at rest. EMS reports temp of 102F; patient afebrile here and denies fevers at home. Hypertensive on arrival, vital signs otherwise reassuring. Diffusely weak on exam, otherwise unremarkable physical exam with no focal neurologic deficits. Broad differential for diffuse weakness in this elderly patient; will expand workup from yesterday. EKG SR, no ST segment or T wave abnormalities to suggest occlusive LA. Labs reviewed as below: -CBC with pancytopenia sightly worsened from visit yesterday WBC 3.3 (from 4.1), Hg 12.8 (from 12.9), Plt 91 (from 104). Retic not elevated, 2.1. Only prior CBC available is from 04/25/22 with WBC 4.4, Hg 13.1, plt 136 so does appear somewhat chronic. -CMP reassuring with no urgent abnormalities. Mg borderline low, normal uric acid, phos, and LDH. -Troponin negative, BNP elevated at 1312 (up from 1067 yesterday) -Coags: INR 1.8, pttt 36.3, dimer 1401 -ESR normal at 6, CRP elevated -Lactate 2.7 -UA yesterday without sign of infection, respiratory viral swab yesterday negative; will not repeat either today. CT chest/abd/pelvis independently reviewed; no pulmonary edema or pneumonia, no bowel obstruction or free fluid; radiology read below with several nimisha incidental findings including lung nodules, adrenal adenoma. Discussed with hematology at [facility]; agree that labs are concerning for potenial hematologic maligancy. Advised further workup/additional labs which have been ordered. No indication for transfer from their perspective, will need outpatient hematology followup. Patient remains diffusely weak and unable to ambulate here in the ED. Discussed with [facility] hospitalist Dr. Dominguez; accepted to medicine service for further workup and management. Awaiting transfer to the floor. Medical Records Medical records reviewed: Yes I reviewed the patient's medical records. Medical records narrative: ED visit note 05/16/23 Imaging Data Radiologic Study: Imaging: CT Scan Radiologist's impression: IMPRESSION 1. No acute findings. 2. Trace pericardial fluid. 3. Scattered nodules in the right lung measuring up to 7 mm .For patients at low risk (minimal or absent history of smoking and of other known risk factors), recommend CT Chest at 3-6 months, then consider CT Chest at 18-24 months. For patients at high risk (history of smoking or of other known risk factors), recommend CT Chest at 3-6 months, then CT Chest at 18-24 months. (Reference: Jori) IMPRESSION: No acute findings. 2.2 cm right adrenal adenoma. Small hiatus hernia. Prostatomegaly. Colonic diverticula. Lab Data Lab results reviewed: Yes I reviewed the patient's lab results. Labs: 05/17/23 01:10 Blood Blood Culture - Pending 05/17/23 01:19 Blood Blood Culture - Pending Laboratory Tests Range/Units 05/17/23 05/17/23 05/17/23 01:19 01:57 02:30 WBC (4.4-10.8) 10^3/uL 3.38 L RBC (4.36-5.78) 10^6/uL 4.08 L Hgb (13.5-17.5) g/dL 12.8 L Hct (40.0-50.0) % 37.7 L MCV (80-95) fL 92 MCH (27.0-33.0) pg 31.4 MCHC (32.0-36.0) % 34.0 RDW (11.8-14.1) % 13.1 Plt Count (130-400) 10^3/uL 91 L MPV (8.0-11.0) fL 10.5 Reticulocyte % (Auto) (0.5-2.4) % 2.1 Immature Gran % 0.9 Neutrophils % 78.7 Lymphocytes % 8.3 Monocytes % 11.8 Eosinophils % 0.0 Basophils % 0.3 Nucleated RBC % (0.0-0.3) % 0.0 Absolute Neutrophils (1.2-6.7) 10^3/uL 2.66 Absolute Lymphocytes (1.2-3.4) 10^3/uL 0.28 L Absolute Monocytes (0.1-0.8) 10^3/uL 0.40 Absolute Eosinophils (0.0-0.7) 10^3/uL 0.00 Absolute Basophils (0.0-0.2) 10^3/uL 0.01 ESR (0-20) mm/hr 6 PT (9.1-11.1) sec 17.3 H INR (0.9-1.1) 1.8 H APTT (23.6-32.8) sec 36.3 H D-Dimer (<500) ng/mlFEU 1410 H VBG Lactate (0.6-1.4) mmol/L 2.7 H* Sodium (136-145) mmol/L 136 Potassium (3.5-5.1) mmol/L 3.8 Chloride (98-107) mmol/L 101 Carbon Dioxide (21.0-32.0) mmol/L 25.5 Anion Gap (3-11) mmol/L 9.5 BUN (7-18) mg/dL 16 Creatinine (0.70-1.30) mg/dL 1.2 Est GFR (CKD-EPI 2020) (mL/min/1.73m2) 61.90 Glucose (74-106) mg/dL 110 H Uric Acid (3.5-7.2) mg/dL 3.5 Calcium (8.5-10.1) mg/dL 8.1 L Phosphorus (2.6-4.7) mg/dL 2.6 Magnesium (1.8-2.4) mg/dL 1.5 L Total Bilirubin (0.2-1.0) mg/dL 0.9 AST (15-37) U/L 32 ALT (16-63) U/L 26 Alkaline Phosphatase (46-116) U/L 39 L Lactate Dehydrogenase (85-227) U/L 203 Troponin I (< or =60) ng/L < 50 C-Reactive Protein (<or=0.5) mg/dL 5.21 H NT-Pro-B Natriuret Pep (<300) pg/mL 1312 H Total Protein (6.4-8.2) g/dL 6.5 Albumin (3.4-5.0) g/dL 3.3 L Urine Color (Yellow) Yellow Urine Clarity (Clear) Clear Urine pH (5-8) 5.5 Ur Specific [place] (1.005-1.025) 1.010 Urine Protein (Neg-Trace) mg/dL Negative Urine Ketones (Negative) mg/dL Negative Urine Blood (Negative) Trace-intact H Urine Nitrite (Negative) Negative Urine Bilirubin (Negative) Negative Urine Urobilinogen (Up to 0.2) mg/dL 0.2 Ur Leukocyte Esterase (Negative) Negative Urine RBC (0-2) HPF 0-2 Urine WBC (0-5) HPF Negative Ur Epithelial Cells (Negative) HPF Rare Urine Crystals (Negative) HPF Negative Urine Bacteria (Negative) HPF Rare Urine Mucus (Negative) Trace Ur Culture Indicated? No Urine Glucose (Negative) mg/dL 100 H COVID-19 Source Cancelled SARS-CoV-2 (PCR) Cancelled Influenza Type A (PCR) Cancelled Influenza Type B (PCR) Cancelled RSV (PCR) Cancelled Quality:SDOH Health Related Social Needs: No Data to Display PFSH All Active Problems (Updated 05/17/23 @ 06:06 by Moriah Bass MD) Weakness (Acute) High serum lactate (Acute) Pancytopenia (Acute) Acute UTI (Acute) Weakness (Acute) Coronary artery disease (Chronic) 12/18/21 pt had PTCA w stent to LAD at [facility] Abnormal nuclear stress test (Acute) Paroxysmal atrial flutter (Acute) Trochanteric bursitis, right hip (Acute) Pes anserinus bursitis of left knee (Acute) Osteoarthritis of left knee (Acute) Steroid injection: 12/16/2020 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) Insomnia (Acute) Presbycusis of both ears (Acute) BRAXTON (obstructive sleep apnea) (Chronic) Morbid obesity (Acute) Hypercholesterolemia (Acute) Primary hypertension (Acute) Benign prostatic hyperplasia with urinary frequency (Acute) Medical History Atrial flutter Kidney stone Social History Smoking/Tobacco Use Status: Former Tobacco Use Smoking risk assessment performed?: Yes Alcohol Intake: former Drug use: Never Substance use type: does not use Housing: house Do you feel safe at home: Yes Do you feel safe in your relationship?: Yes
[2023-05-17 02:39] LABS: Bilirubin Negative (Negative); Blood Trace-intact (Negative); Clarity Clear (Clear); Glucose 100 mg/dL (Negative); Ketones Negative (Negative); Leukocyte Esterase Negative (Negative); Nitrite Negative (Negative); Urobilinogen 0.2 mg/dL (Up to 0.2); pH 5.5 (5-8)
[2023-05-17 02:47] LABS: Bacteria Rare HPF (Negative); C & S Indicated? No; Crystals Negative HPF (Negative); Epithelial Cells Rare HPF (Negative); Mucus Trace (Negative); RBC 0-2 HPF (0-2); WBC Negative HPF (0-5)
[2023-05-17 03:18] LABS: D-Dimer 1410 ng/mlFEU (<500)
--- NOTE | 2023-05-17 04:25 | DI.VRAD_ITS ---
PROCEDURE INFORMATION: Exam: CT Chest With Contrast; Diagnostic Exam date and time: 05/17/2023 1:33 AM Age: 77 years old Clinical indication: Other: Fever of unknown origin, lactic acidosis, weak TECHNIQUE: Imaging protocol: Diagnostic computed tomography of the chest with contrast. 3D rendering (Not supervised by radiologist): MIP and/or 3D reconstructed images were created by the technologist. Radiation optimization: All CT scans at this facility use at least one of these dose optimization techniques: automated exposure control; mA and/or kV adjustment per patient size (includes targeted exams where dose is matched to clinical indication); or iterative reconstruction. Contrast material: OMNIPAQUE 350; Contrast volume: 100 ml; Contrast route: INTRAVENOUS (IV); COMPARISON: CR XR PORTABLE CHEST AP 05/16/2023 3:41 PM FINDINGS: Trachea: Major airways are patent. Lungs: No consolidation. There is a 3 mm subpleural nodule in the right upper lobe image 179 of series 7. A 5 mm nodule is seen in the right upper lobe image 258 of series 7. A 7 mm nodule in the right middle lobe anteriorly image 349 of series 7. Pleural spaces: Unremarkable. No pneumothorax. No pleural effusion. Heart: Prominent heart. Trace pericardial effusion. . Coronary arteries: Coronary artery calcifications. Lymph nodes: No pathologic sized adenopathy. Vasculature: Mild atherosclerotic disease. No aortic aneurysm or dissection. Bones/joints: Degenerative changes in the spine. Soft tissues: Unremarkable. IMPRESSION: 1. No acute findings. 2. Trace pericardial fluid. 3. Scattered nodules in the right lung measuring up to 7 mm .For patients at low risk (minimal or absent history of smoking and of other known risk factors), recommend CT Chest at 3-6 months, then consider CT Chest at 18-24 months. For patients at high risk (history of smoking or of other known risk factors), recommend CT Chest at 3-6 months, then CT Chest at 18-24 months. (Reference: Jori) PROCEDURE INFORMATION: Exam: CT Abdomen And Pelvis With Contrast Exam date and time: 05/17/2023 1:33 AM Age: 77 years old Clinical indication: Other: Fever of unknown origin, lactic acidosis, weak TECHNIQUE: Imaging protocol: Computed tomography of the abdomen and pelvis with contrast. 3D rendering (Not supervised by radiologist): MIP and/or 3D reconstructed images were created by the technologist. Radiation optimization: All CT scans at this facility use at least one of these dose optimization techniques: automated exposure control; mA and/or kV adjustment per patient size (includes targeted exams where dose is matched to clinical indication); or iterative reconstruction. Contrast material: OMNIPAQUE 350; Contrast volume: 100 ml; Contrast route: INTRAVENOUS (IV); COMPARISON: CT ABDOMEN PELVIS WO 04/25/2022 10:09 AM FINDINGS: Diaphragm: Small hiatus hernia. Liver: Normal. No mass. Gallbladder and bile ducts: Normal. No calcified stones. No ductal dilation. Pancreas: Atrophic pancreas. Spleen: Normal. No splenomegaly. Adrenal glands: Right adrenal 2.2 x 1.4 cm adenoma. Left adrenal gland is unremarkable. Kidneys and ureters: No renal stones or hydronephrosis. Few tiny cysts in the left kidney. Stomach and bowel: Evidence of prior surgery in the GE junction region. Colonic diverticulosis. Small bowel is unremarkable. Appendix: Appendix is not identified. Loops no secondary signs of appendicitis. Intraperitoneal space: Unremarkable. No free air. No significant fluid collection. Vasculature: Unremarkable. No abdominal aortic aneurysm. Lymph nodes: Unremarkable. No enlarged lymph nodes. Urinary bladder: Unremarkable as visualized. Reproductive: Prostate is enlarged containing calcifications measuring 6.5 cm in transverse dimension. Bones/joints: Degenerative changes in the spine. No acute fracture. Soft tissues: Tiny fat containing umbilical hernia. Small left inguinal hernia containing fat. IMPRESSION: No acute findings. 2.2 cm right adrenal adenoma. Small hiatus hernia. Prostatomegaly. Colonic diverticula. Dictated and Authenticated by: Moriah Yoder MD. Ordering:OLIVE Major MD
[2023-05-17 05:29] LABS: HIV 1/2 Ab Rapid Negative (Negative)
--- NOTE | 2023-05-17 05:41 | HPE_ITS ---
Date of service: 05/17/23 Time of Service: 05:41 Assessment and Plan Assessment and plan (1) Weakness: Status: Acute Assessment and plan: Generalized weakness, non-specific. Given EMS report of fever, and low grade temp here, I wonder if he has some non-specific viral illness; whether the modest pancytopenia is related is not evident. The elevation in CRP (and lactate) do not correlate with clinical presentation at this point. I think we need to monitor clinically at this point, await micro studies and begin PT. 1. Weakness: monitor, PT, await micro studies 2. PAF: continue DOAC and beta og for rate control 3. DM: Continue Metformin and Glipzide as usual 4. Mild hypomag: could be contributing some to weakness but doubtfully in any significant way. Will replace 5. Chronic prostatism: continue Proscar and saw palmetto. Has previously been on Flomax, unclear why no longer 6. Reviewed ADs: requests DNR History of Present Illness History of Present Illness Chief Complaint: weakness Narrative: 77 male with h/o HTN, DM, obesity, AF -- seen yesterday with 1 day of weakness. Work up unrevealing, patient did note a degree of chronic urinary frequency and was discharged on Keflex for putative UTI, though U/A unremarkable. Returns tongith with persistent weakness, slid out of bed and couldn't get up. EMS report temp to 102. Here Tmax 37.3 and w/u of note for: mild pancytopenia, normal electrolytes save Mg 1.5; CRP 5.21, lactate 2.7 (down from 3.5 yesterday), negative U/A. CT chest, abd, pelvis, of noted for scattered non- specific pulmonary nodules and adrenal adenoma. Note that viral swab yesterday triple negative. Case reviewed with [facility], advised initiate w/u for pancytopenia -- B12, folate and viral studies for HIV, Hep B, and tick panel have been sent. Patient has no complaints at present but does allow that he does feel generalized weakness. Note that due to obesity he does have a degree of difficulty getting around usually. Review of Systems Narrative: per HPI PFSH All Active Problems Acute UTI (Acute) Weakness (Acute) Coronary artery disease (Chronic) 12/18/21 pt had PTCA w stent to LAD at [facility] Abnormal nuclear stress test (Acute) Paroxysmal atrial flutter (Acute) Trochanteric bursitis, right hip (Acute) Pes anserinus bursitis of left knee (Acute) Osteoarthritis of left knee (Acute) Steroid injection: 12/16/2020 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) Insomnia (Acute) Presbycusis of both ears (Acute) BRAXTON (obstructive sleep apnea) (Chronic) Morbid obesity (Acute) Hypercholesterolemia (Acute) Primary hypertension (Acute) Benign prostatic hyperplasia with urinary frequency (Acute) Medical History Atrial flutter Kidney stone Social History Smoking/Tobacco Use Status: Former Tobacco Use Smoking risk assessment performed?: Yes Alcohol Intake: former Drug use: Never Substance use type: does not use Housing: house Do you feel safe at home: Yes Do you feel safe in your relationship?: Yes Meds Allergies and Home Medications Allergies Allergy/AdvReac Type Severity Reaction Status Date / Time lisinopril AdvReac Mild cough Verified 05/17/23 01:03 ibuprofen AdvReac Other (See Verified 05/17/23 01:03 Comment) trazodone AdvReac dry mouth Verified 05/17/23 01:03 Home Medications Medication Instructions Recorded Confirmed Type cholecalciferol (vitamin D3) 125 125 mcg PO DAILY 12/10/20 05/17/23 History mcg (5,000 unit) capsule losartan 50 mg tablet 50 mg PO DAILY 12/10/20 05/17/23 History metformin 1,000 mg tablet 1,000 mg PO BID 12/10/20 05/17/23 History saw palmetto 500 mg capsule 1,000 mg PO DAILY 12/10/20 05/17/23 History tamsulosin 0.4 mg capsule (Flomax) 0.4 mg PO QHS 12/10/20 05/17/23 History rivaroxaban 20 mg tablet (Xarelto) 20 mg PO DAILY 09/17/21 05/17/23 History diphenhydramine HCl 25 mg capsule 25 mg PO QHS PRN 12/08/21 05/17/23 History (Allergy (diphenhydramine)) melatonin 5 mg capsule 5 mg PO DAILY PRN 01/26/22 05/17/23 History rosuvastatin 20 mg tablet 20 mg PO DAILY 01/26/22 05/17/23 History finasteride 5 mg tablet 5 mg PO DAILY 12/03/22 05/17/23 History furosemide 20 mg tablet 20 mg PO DAILY PRN 12/03/22 05/17/23 History glipizide 5 mg tablet 2.5 mg PO DAILY 12/03/22 05/17/23 History metoprolol succinate 50 mg 50 mg PO DAILY #90 tabs 12/03/22 05/17/23 Rx tablet,extended release 24 hr cephalexin 500 mg capsule 500 mg PO QID 5 days #20 caps 05/16/23 05/17/23 Rx Exam Narrative Exam Narrative: 186/71, 61, 37.3, 28, 96% RA. HEENT atraumatic; neck supple; lungs (anterior exam only) grossly clear; heart distant, frequent ectopy; abdomen soft and NT; no scrotal swelling or redness and no D/C; extremities w/o edema; neur Ox3, lucid. motor 5/5 throughout Results Labs 05/17/23 01:19 05/17/23 01:19 Labs: Laboratory Results - last 24 hr 05/17/23 05/17/23 05/17/23 01:19 01:57 02:30 WBC 3.38 L RBC 4.08 L Hgb 12.8 L Hct 37.7 L MCV 92 MCH 31.4 MCHC 34.0 RDW 13.1 Plt Count 91 L MPV 10.5 Reticulocyte % (Auto) 2.1 Immature Gran % 0.9 Neutrophils % 78.7 Lymphocytes % 8.3 Monocytes % 11.8 Eosinophils % 0.0 Basophils % 0.3 Nucleated RBC % 0.0 Absolute Neutrophils 2.66 Absolute Lymphocytes 0.28 L Absolute Monocytes 0.40 Absolute Eosinophils 0.00 Absolute Basophils 0.01 ESR 6 PT 17.3 H INR 1.8 H APTT 36.3 H D-Dimer 1410 H VBG Lactate 2.7 H* Sodium 136 Potassium 3.8 Chloride 101 Carbon Dioxide 25.5 Anion Gap 9.5 BUN 16 Creatinine 1.2 Est GFR (CKD-EPI 2020) 61.90 Glucose 110 H Uric Acid 3.5 Calcium 8.1 L Phosphorus 2.6 Magnesium 1.5 L Total Bilirubin 0.9 AST 32 ALT 26 Alkaline Phosphatase 39 L Lactate Dehydrogenase 203 Troponin I < 50 C-Reactive Protein 5.21 H NT-Pro-B Natriuret Pep 1312 H Total Protein 6.5 Albumin 3.3 L Urine Color Yellow Urine Clarity Clear Urine pH 5.5 Ur Specific [place] 1.010 Urine Protein Negative Urine Ketones Negative Urine Blood Trace-intact H Urine Nitrite Negative Urine Bilirubin Negative Urine Urobilinogen 0.2 Ur Leukocyte Esterase Negative Urine RBC 0-2 Urine WBC Negative Ur Epithelial Cells Rare Urine Crystals Negative Urine Bacteria Rare Urine Mucus Trace Ur Culture Indicated? No Urine Glucose 100 H COVID-19 Source Cancelled SARS-CoV-2 (PCR) Cancelled HIV 1&2 Antibody Rapid Negative Influenza Type A (PCR) Cancelled Influenza Type B (PCR) Cancelled RSV (PCR) Cancelled Pathology Consult Spec Cancelled Last Vital Signs Temp 37.3 C 05/17/23 00:56 Pulse 61 05/17/23 03:30 Resp 28 H 05/17/23 03:40 BP 186/71 H 05/17/23 03:30 Pulse Ox 96 05/17/23 03:40 Time Spent Time spent with Patient: 55-74 minutes Time was spent: preparing to see the patient(eg.review tests), obtaining and/or reviewing separately otained hiistory, ordering medications,tests, procedures, referring, communicating with other health memory care program resident and indepentently interpreting results
[2023-05-17 05:57] LABS: Ferritin 338 ng/mL (26-388); Folate 11.4 ng/mL (8.6-20.0)
[2023-05-17] MEDS: MAGNESIUM SULFATE 2 GM/50 ML BAG IVPB (07:05)
[2023-05-17 08:05] LABS: Vitamin B12 86 pg/mL (193-986)
[2023-05-17] MEDS: Tamsulosin 0.4 MG CAPCR PO (09:25)
[2023-05-17] MEDS: cefTRIAXone 1 GM/50 ML BAG IVPB ×2 (09:25→15:06)
[2023-05-17] MEDS: Losartan 50 MG TAB PO (09:25)
[2023-05-17] MEDS: Acetaminophen 325 MG TAB 650 MG PO ×2 (09:25→14:08)
[2023-05-17] MEDS: Rosuvastatin 20 MG TAB PO (09:26)
[2023-05-17] MEDS: Finasteride 5 MG TAB PO (09:26)
[2023-05-17 09:31] LABS: Lactate 3.1 mmol/L (0.6-1.4)
[2023-05-17 10:10] LABS: Procalcitonin 0.1 ng/mL
--- NOTE | 2023-05-17 10:31 | PDOC.CMIN ---
Date of service: 05/17/23 Time of Service: 10:31 Care Management Initial Assmt Initial Assessment REASON FOR HOSPITALIZATION:: weakness PREVIOUS FUNCTIONAL STATUS/SOCIAL/FAMILY SUPPORTS:: Bobo lives in a single family home in [place] with his Erinn. They each have children from previous marriages but none together. 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 Bboo is independent with ADLs and self care in the community and does not receive any services. Until the past week, he was independent with ambulation as well. CURRENT FUNCTIONAL STATUS:: Bobo was lying in bed visiting with his Erinn when CM met with him. He stated that he is feeling better than he was, but is still not well. He deferred to Erinn to answer questions. Erinn informed CM that Bobo has not been able to walk at home for the past week or so due to weakness. She stated that he fell out of bed yesterday and could not get up; EMS needed to be called. Bobo has no localizing symptoms of infection however his temperature is 40.2 C and his CRP is 5.2. He also has pancytopenia. A tick panel has been ordered as well as urine and blood cultures. ADVANCE DIRECTIVES:: none Has patient been provided with info about the portal/API?: Yes Did the patient sign up for the portal?: No CODE STATUS:: DNR/DNI INSURANCE COVERAGE / FINANCIAL ISSUES:: Medicare /[facility] CURRENT HOME/COMMUNITY SERVICES/EQUIPMENT:: [facility] PRIMARY CARE PHYSICIAN:: Sadi Rogers POTENTIAL DISCHARGE NEEDS:: follow up with PCP and plan of care PATIENT/FAMILY EDUCATION NEEDS:: Review of discharge instructions, activity, limitations, follow up plan, discuss [employer] TRANSPORTATION:: via private vehicle PLAN:: Anticipate Bobo will be discharged home, possibly with new home health services, when medically stable. He will follow up with his PCP and plan of care and transport with family. CM will follow and continue to assess for discharge needs. PFSH All Active Problems (Updated 05/17/23 @ 15:03 by Alvin Saldivar MD) Acute febrile illness (Acute) Acquired lymphocytopenia (Acute) Weakness (Acute) High serum lactate (Acute) Pancytopenia (Acute) Acute UTI (Acute) Weakness (Acute) Coronary artery disease (Chronic) 12/18/21 pt had PTCA w stent to LAD at [facility] Abnormal nuclear stress test (Acute) Paroxysmal atrial flutter (Acute) Trochanteric bursitis, right hip (Acute) Pes anserinus bursitis of left knee (Acute) Osteoarthritis of left knee (Acute) Steroid injection: 12/16/2020 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) Insomnia (Acute) Presbycusis of both ears (Acute) BRAXTON (obstructive sleep apnea) (Chronic) Morbid obesity (Acute) Hypercholesterolemia (Acute) Primary hypertension (Acute) Benign prostatic hyperplasia with urinary frequency (Acute) Medical History Atrial flutter Kidney stone Social History Smoking/Tobacco Use Status: Former Tobacco Use Smoking risk assessment performed?: Yes Alcohol Intake: former Drug use: Never Substance use type: does not use Housing: house Do you feel safe at home: Yes Do you feel safe in your relationship?: Yes SDOH(Care Management) Screening Will the Patient Participate in the Screening?: Unable to obtain
--- NOTE | 2023-05-17 10:38 | PT.INNT ---
PT Notes Visit Reasons: Weakness Still febrile and very weak. and patient requested that patient rest for today and be seen for PT eval tomorrow morning. Nurse Jessy in agreement.
--- NOTE | 2023-05-17 14:14 | W.PM.PROGNOT ---
Date of Service Date of service: 05/17/23 Time of Service: 14:14 Assessment and Plan Assessment and plan (1) Acute febrile illness: Status: Acute Assessment and plan: DDX: viral illness, tick borne disease, UTI (although his UA makes this unlikely but he has symptoms of his abnromal prostate w/ increased urinary hesitancy frequent voiding of small amounts) continue Rocephin pending urine and blood cultures. add doxycycline pending tick panel (2) Weakness: Status: Acute Assessment and plan: patient w/ B12 deficiency; will give parenteral vitamin B12 and consult P.T. (3) Pancytopenia: Status: Acute (4) Acquired lymphocytopenia: Status: Acute Assessment and plan: likely viral syndrome (5) High serum lactate: Status: Acute Assessment and plan: iv hydration and repeat lactate (6) Paroxysmal atrial flutter: Status: Acute Assessment and plan: continue home meds; rate is controlled and therefor I have not put him on telemetry (7) Type 2 diabetes mellitus with microalbuminuria: Status: Acute Assessment and plan: sliding scale insulin (8) BRAXTON (obstructive sleep apnea): Status: Chronic (9) Primary hypertension: Status: Acute (10) Benign prostatic hyperplasia with urinary frequency: Status: Acute Assessment and plan: add flomax to his proscar Subjective Subjective Interval history since last seen: 77-year-old male with history of hypertension, hyperlipidemia, type 2 diabetes mellitus, coronary artery disease, chronic atrial fibrillation on rivaroxaban presented emergency department 2-day history of generalized weakness inability to get out of bed and ambulate on his own. Also reporting fevers. He was afebrile in the emergency department last night. He been seen in the ER on the day before and was started on Keflex for possible UTI. Last night he was admitted by the die cleaner for workup of his generalized weakness. Patient has known history of BPH is chronically on Proscar but not on Flomax. He has had urinary incontinence urinary frequency and dysuria but no gross hematuria. Today has been having fevers of 39 ?C along with rigors. Blood and urine cultures were obtained this morning. Blood cultures were also obtained yesterday. All blood cultures are pending urine culture from yesterday showed preliminary mixed gram-positive jose r 10-50,000 colonies. Patient denies any exposure to ticks has [place] been in the [place] at all this winter has an indoor cat but no animals that go outside the home. I talked with his she has not seen any ticks in the home. Patient was worked up for tickborne illness with serology for tick panel. Patient was not started on antibiotics last night but I started him on Rocephin this morning 1 g IV every 24 hours and ordered repeat blood cultures this morning. I have asked increased his Rocephin to 2 g daily and added doxycycline to his regimen. He denies any shortness of breath cough or sputum production denies any abdominal pain. Exam Narrative Exam Narrative: Morbidly obese male who appears to be plethoric in appearance and has some mild audible wheezes but sounds to be upper airway as his lung exam in the lower lung gu sound to be clear Regular rate and rhythm Abdomen: obese, soft, nontender, no guarding or rebound tenderness Legs/arms: no open sores, no signs of any insect bites or target lesions Bladder was scanned by nursing and by myself. HIs urinary bladder appears small to normal, estimated bladder volume was <150 mL per handheld bladder scanner Rectal exam: normal tone, no tenesmus, very enlarged prostate that does not feel to be nodular, stool negative for occult blood; prostate was nontender to palpation Objective Last Vital Signs Temp 38.2 C H 05/17/23 14:08 Pulse 74 05/17/23 13:46 Resp 20 05/17/23 13:46 BP 144/67 H 05/17/23 13:46 Pulse Ox 94 05/17/23 13:46 Laboratory Results - last 24 hr 05/17/23 05/17/23 05/17/23 01:19 01:57 02:30 WBC 3.38 L RBC 4.08 L Hgb 12.8 L Hct 37.7 L MCV 92 MCH 31.4 MCHC 34.0 RDW 13.1 Plt Count 91 L MPV 10.5 Reticulocyte % (Auto) 2.1 Immature Gran % 0.9 Neutrophils % 78.7 Lymphocytes % 8.3 Monocytes % 11.8 Eosinophils % 0.0 Basophils % 0.3 Nucleated RBC % 0.0 Absolute Neutrophils 2.66 Absolute Lymphocytes 0.28 L Absolute Monocytes 0.40 Absolute Eosinophils 0.00 Absolute Basophils 0.01 ESR 6 PT 17.3 H INR 1.8 H APTT 36.3 H D-Dimer 1410 H VBG Lactate 2.7 H* Sodium 136 Potassium 3.8 Chloride 101 Carbon Dioxide 25.5 Anion Gap 9.5 BUN 16 Creatinine 1.2 Est GFR (CKD-EPI 2020) 61.90 Glucose 110 H Uric Acid 3.5 Calcium 8.1 L Phosphorus 2.6 Magnesium 1.5 L Ferritin 338 Total Bilirubin 0.9 AST 32 ALT 26 Alkaline Phosphatase 39 L Lactate Dehydrogenase 203 Troponin I < 50 C-Reactive Protein 5.21 H NT-Pro-B Natriuret Pep 1312 H Total Protein 6.5 Albumin 3.3 L Vitamin B12 86 L Folate 11.4 Procalcitonin Urine Color Yellow Urine Clarity Clear Urine pH 5.5 Ur Specific [place] 1.010 Urine Protein Negative Urine Ketones Negative Urine Blood Trace-intact H Urine Nitrite Negative Urine Bilirubin Negative Urine Urobilinogen 0.2 Ur Leukocyte Esterase Negative Urine RBC 0-2 Urine WBC Negative Ur Epithelial Cells Rare Urine Crystals Negative Urine Bacteria Rare Urine Mucus Trace Ur Culture Indicated? No Urine Glucose 100 H COVID-19 Source Cancelled SARS-CoV-2 (PCR) Cancelled HIV 1&2 Antibody Rapid Negative Influenza Type A (PCR) Cancelled Influenza Type B (PCR) Cancelled RSV (PCR) Cancelled Pathology Consult Spec Cancelled 05/17/23 05/17/23 05:16 09:20 WBC RBC Hgb Hct MCV MCH MCHC RDW Plt Count MPV Reticulocyte % (Auto) Immature Gran % Neutrophils % Lymphocytes % Monocytes % Eosinophils % Basophils % Nucleated RBC % Absolute Neutrophils Absolute Lymphocytes Absolute Monocytes Absolute Eosinophils Absolute Basophils ESR PT INR APTT D-Dimer VBG Lactate 3.1 H* Sodium Potassium Chloride Carbon Dioxide Anion Gap BUN Creatinine Est GFR (CKD-EPI 2020) Glucose Uric Acid Calcium Phosphorus Magnesium Ferritin Total Bilirubin AST ALT Alkaline Phosphatase Lactate Dehydrogenase Troponin I C-Reactive Protein NT-Pro-B Natriuret Pep Total Protein Albumin Vitamin B12 Cancelled Folate Procalcitonin 0.1 Urine Color Urine Clarity Urine pH Ur Specific [place] Urine Protein Urine Ketones Urine Blood Urine Nitrite Urine Bilirubin Urine Urobilinogen Ur Leukocyte Esterase Urine RBC Urine WBC Ur Epithelial Cells Urine Crystals Urine Bacteria Urine Mucus Ur Culture Indicated? Urine Glucose COVID-19 Source SARS-CoV-2 (PCR) HIV 1&2 Antibody Rapid Influenza Type A (PCR) Influenza Type B (PCR) RSV (PCR) Pathology Consult Spec Time Spent with Patient Time Spent with Patient: >50 minutes Time was spent: preparing to see the patient(eg.review tests), obtaining and/or reviewing separately otained hiistory, ordering medications,tests, procedures, referring, communicating with other health urgent care physician assistant, indepentently interpreting results, counseling the patient and care coordination
--- NOTE | 2023-05-17 14:28 | PHA.REVIEW2 ---
Pharmacy Admission Review Admission Clinical Review Admission Pharmacy Review: Weakness (Acute) lisinopril Adverse Reaction (Mild, Verified 05/17/23 01:03) cough ibuprofen Adverse Reaction (Verified 05/17/23 01:03) Other (See Comment) trazodone Adverse Reaction (Verified 05/17/23 01:03) dry mouth Resuscitation Status DNR/DNI Height 5 ft 7 in Weight 136.6 kg Pharmacy Admission Review Renal Dosing Renal Dosing: BUN 16 mg/dL (7-18) 05/17/23 01:19 Creatinine 1.2 mg/dL (0.70-1.30) 05/17/23 01:19 Medications needing adjustments: Reviewed (CrCl 67.6 mL/min) Anticoagulation Anticoagulation: Hgb 12.8 g/dL (13.5-17.5) L 05/17/23 01:19 Hct 37.7 % (40.0-50.0) L 05/17/23 01:19 Plt Count 91 10^3/uL (130-400) L 05/17/23 01:19 INR 1.8 (0.9-1.1) H 05/17/23 01:19 Creatinine 1.2 mg/dL (0.70-1.30) 05/17/23 01:19 DVT Prophylaxis: Reviewed Medications: Rivaroxaban (20mg daily) Relevant Labs Relevant Labs: ESR 6 mm/hr (0-20) 05/17/23 01:19 Sodium 136 mmol/L (136-145) 05/17/23 01:19 Potassium 3.8 mmol/L (3.5-5.1) 05/17/23 01:19 Chloride 101 mmol/L (98-107) 05/17/23 01:19 Phosphorus 2.6 mg/dL (2.6-4.7) 05/17/23 01:19 Magnesium 1.5 mg/dL (1.8-2.4) L 05/17/23 01:19 C-Reactive Protein 5.21 mg/dL (<or=0.5) H 05/17/23 01:19 Electrolytes, C-Reactive P, ESR: Reviewed (Mg 1.5, INR 1.8, Hgb 12.8) DM Control DM Control: Glucose 110 mg/dL (74-106) H 05/17/23 01:19 DM Control: Reviewed Insulin Dosing, Diabetic Medication: Has order for metformin (put order on hold due to imaging with Iohexol) Cardiac Review Cardiac Review: Troponin I < 50 ng/L (< or =60) 05/17/23 01:19 NT-Pro-B Natriuret Pep 1312 pg/mL (<300) H 05/17/23 01:19 Blood Pressure 144/67 1346 Blood Pressure 131/60 1313 Blood Pressure 144/60 0750 Blood Pressure 159/58 0701 Blood Pressure 179/73 0631 Blood Pressure 145/58 0601 Blood Pressure 154/71 0531 BP, HR, EF%: Reviewed (BP 144/67, HR WNL) QTc Review QTc: Reviewed (418 from 05/16/23) IV to PO Switch IV Medications: Reviewed (Ceftriaxone and doxycycline) Home Meds Home Med List reviewed: Intervened Relevent Home Meds Not ordered & why?: Vitamin D3, glipizide, pioglitazone (added to med list from external data) and trospium (added to med list from external data). Provider aware Current Meds Current Medication Order Review: Intervened Comments: Put metformin order on hold due to imaging with Iohexol Pharmacy Antibiotic Review Relevant Labs: Relevant Labs 05/17/23 05/17/23 09:20 01:19 Lactate Dehydrogenase 203 C-Reactive Protein 5.21 H Procalcitonin 0.1 Pharmacy Antibiotic Activity: C/S review and Reviewed, no change Comments: Patient is on ceftriaxone and doxycycline day 1, for UTI. Urine culture growing gram positive jose r, blood cultures pending.
[2023-05-17] MEDS: Lactated Ringers 1,000 ML 150 ML IV (15:00)
[2023-05-17] MEDS: Lidocaine 2% Jelly 11 ML SYR UR (15:06)
[2023-05-17] MEDS: Ibuprofen 600 MG TAB PO (15:20)
[2023-05-17 16:18] LABS: Lactate 1.9 mmol/L (0.6-1.4)
[2023-05-17] MEDS: Rivaroxaban 10 MG TABLET 20 MG PO (17:03)
[2023-05-17] MEDS: Melatonin 3 MG TAB PO (21:01)
[2023-05-17] MEDS: DOXYCYCLINE 100 MG in Normal Saline 100 ML IVPB (21:01)
[2023-05-17] MEDS: ACETAMINOPHEN 1,000 MG/100 ML BTL 400 MG IVPB (22:33)
[2023-05-18] VITALS (12 sets, daily range): BP systolic 122–182; BP diastolic 59–93; PULSE 47–73; RESP 17–22; TEMP 35.5–39.7; O2SAT 90–97
[2023-05-18] MEDS: ACETAMINOPHEN 1,000 MG/100 ML BTL 400 MG IVPB ×3 (06:41→21:47)
[2023-05-18 07:04] LABS: ALT 37 U/L (16-63); AST 64 U/L (15-37); Albumin 2.8 g/dL (3.4-5.0); Alkaline Phosphatase 30 U/L (46-116); Anion Gap 8.3 mmol/L (3-11); BUN 15 mg/dL (7-18); Bilirubin, Total 0.8 mg/dL (0.2-1.0); CO2 27.7 mmol/L (21.0-32.0); Calcium 7.9 mg/dL (8.5-10.1); Chloride 103 mmol/L (98-107); Estimated GFR 77.04 (mL/min/1.73m2); Glucose 128 mg/dL (74-106); Potassium 3.5 mmol/L (3.5-5.1); Sodium 139 mmol/L (136-145); Total Protein 5.7 g/dL (6.4-8.2)
[2023-05-18] MEDS: DOXYCYCLINE 100 MG in Normal Saline 100 ML IVPB ×2 (08:24→20:00)
--- NOTE | 2023-05-18 09:51 | PT.INIE ---
PT Notes Visit Reasons: Weakness Physical Therapy Inpatient Initial Evaluation Date: 05/18/2023 Referring Doctor: Fan Dominguez MD PT Orders: PT CONSULT: Limited ability Precautions: Fall. Standard. Activity as tolerated. Patient Profile/Admitting Diagnosis: Richard is a 77-year-old male admitted for management of acute febrile illness, pancytopenia, weakness, acquired limb full cytopenia, high serum lactate, PAF, type 2 diabetes mellitus, BRAXTON, primary hypertension, and benign prostatitis with hyperplasia and urinary frequency. PMHX: All Active Problems Acute UTI (Acute) Weakness (Acute) Coronary artery disease (Chronic) 12/18/21 pt had PTCA w stent to LAD at [facility] Abnormal nuclear stress test (Acute) Paroxysmal atrial flutter (Acute) Trochanteric bursitis, right hip (Acute) Pes anserinus bursitis of left knee (Acute) Osteoarthritis of left knee (Acute) Steroid injection: 12/16/2020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) Insomnia (Acute) Presbycusis of both ears (Acute) BRAXTON (obstructive sleep apnea) (Chronic) Morbid obesity (Acute) Hypercholesterolemia (Acute) Primary hypertension (Acute) Benign prostatic hyperplasia with urinary frequency (Acute) Medical History Atrial flutter Kidney stone Social History/Home Situation: Lives with in a ranch style private home with 2 steps to enter with rails. Independent with all aspects of ADLs prior to admission. Did not use any assistive device. Still drives. Equipment Owned/DME: [employer] (previoulsy owned by 's mother) Subjective: Feels much better than he did yesterday. Agreeable to PT consult. Reported mild lightheadedness that did not limit mobility performance. Objective: General Observation: Seated on bedside chair IV through left UE. Aburto catheter in place. High BMI. Mental Status: Alert and oriented as to person, place, time, and purpose. Able to pay attention, focus, and respond appropriately. Pain: None reported Vital Signs: BP before ambulation 136/64 mmHg, after walking 155/68 mmHg O2 sat before walking 91% on RA, after walking 95% on RA HR before walking 55 bpm, after walking 66 bpm ROM: Right Upper Extremity: Shoulder Flexion WFL. Shoulder abduction WFL. Elbow flexion WFL. Wrist flexion WFL. Functional opening and closing of hand WFL. Left Upper Extremity: Shoulder Flexion WFL. Shoulder abduction WFL. Elbow flexion WFL. Wrist flexion WFL. Functional opening and closing of hand WFL. Right Lower Extremity: Hip flexion WFL. Hip abduction WFL. Knee flexion WFL. Ankle dorsiflexion WFL. Ankle plantarflexion WFL. Left Lower Extremity: Hip flexion WFL. Hip abduction WFL. Knee flexion WFL. Ankle dorsiflexion WFL. Ankle plantarflexion WFL. Strength: Right Upper Extremity: Shoulder flexors 4-/5. Shoulder abductors 4-/5. Elbow flexors 4-/5. Elbow extensors 4-/5. Submarine Worker strong. Left Upper Extremity: Shoulder flexors 4-/5. Shoulder abductors 4-/5. Elbow flexors 4-/5. Elbow extensors 4-/5. Submarine Worker strong. Right Lower Extremity: Hip flexors 4-/5. Hip abductors 4-/5. Knee flexors 4-/5. Knee extensors 4-/5. Ankle dorsiflexors 4-/5. Ankle plantarflexors 4-/5. Left Lower Extremity: Hip flexors 4-/5. Hip abductors 4-/5. Knee flexors 4-/5. Knee extensors 4-/5. Ankle dorsiflexors 4-/5. Ankle plantarflexors 4-/5. Bed Mobility/Transfers: Minimal cueing provided for use of B hands as needed for support, movement sequence, AD management, and posture to reduce fall risk and minimize pain report Sit to stand standby assist with FWW Stand to sit standby assist with FWW Bed to reclining chair standby assist with FWW Reclining chair to bed standby assist with FWW Gait: Facilitated safe and correct performance of level surface ambulation covering a distance of 250 feet using front wheeled walker with standby assist and wheelchair follow for safety. Patient did not demonstrate any shortness of breath nor loss of balance throughout. Reported mild lightheadedness that did not limit mobility performance. Had less than a minute of standing rest x 2, no seated rests. Balance: Static Sitting: Normal Dynamic Sitting: Normal Static Standing: Fair Dynamic Standing: Fair Special Tests: Mobility Limitations Standardized Measure [facility] AM-PAC 6 clicks Basic Mobility Inpatient Short Form: Raw Score: 23 CMS Score: 11% deficit Informed Consent/Education: Patient was instructed in purpose of PT consult and plan of care. Agreeable to proceed with established PT POC to achieve personal goals. Assessment: Patient requires the use of a front wheeled walker for all walking activities which is standby assist covering a distance of 250 feet as above. Will assess ability to perform ambulation using single-point cane or using no assistive device to determine safety and response to activity. Patient presents with clinical signs and symptoms consistent with current/admitting diagnoses that have resulted to mobility limitations, gait instability, generalized weakness, and overall ADL decline as demonstrated by the following impairment level findings: 1. Decreased strength to B UE/LE major muscle groups 2. Impaired standing balance 3. Impaired activity tolerance Impairments are contributing to the following functional limitations: 1. Difficulty with ambulation without assistive device 2. Increased completion time for mobility ADL performance 3. Increased risk for falls 4. Difficulty with managing steps alone safely Patient is assessed as a 27166 moderate complexity based on the following: History: 77-year-old male with past medical history as indicated above Examination: Demonstrable impairment in strength, balance, and mobility level with underlying impairments and functional limitations as exhibited above as well as deficit score of 11% utilizing the [facility] Mobility Inpatient Short Form Presentation: Evolving Decision Makin moderate complexity Goals: Goals X1 week 1. Supine-Sit independent 2. Sit-Supine independent 3. Sit-Stand independent 4. Stand-Sit independent with no AD 5. Bed-Chair independent with no AD 6. Chair-Bed independent with no AD 7. Independent gait on level surface with use of 4WW vs SPC for at least 300 feet without report of pain nor dyspnea 8. Independent stair negotiation while holding onto B rails for at least 3 steps without report of pain nor dyspnea 9. Independent with home exercise program 10. Good static and dynamic standing balance/tolerance Plan of Care/Treatment Plan: 1-2x/day, 7 days/week x 1 week. Plan of care has been reviewed with the [employer] AGENT providing the service under Physical Therapy direction. Initiate Physical Therapy intervention for pain management as needed, strengthening, bed mobility, transfers, gait, stairs, balance training, and use of assistive device. DISCHARGE RECOMMENDATIONS: [] Home with no services [] [X] Home with services. Patient will benefit from home health PT services in order to progress mobility level using least restrictive assistive ambulatory device, assess home safety, identify additional equipment needs, and establish a functional maintenance program that will increase ability of patient to remain at home. [] Home with outpatient PT [] [] SNF for continued rehabilitation [] [] Workforce Manager Care [] [] SNF versus LTC based on ability to participate and progress [] TREATMENT CODE/TIME: 9716 2 x 28 minutes for 1 unit (9:51?10:19). Thank you for the opportunity to participate in the care of this patient. Lolis Ballard PT, DPT, CLT [facility] [place], [place]
[2023-05-18 09:56] LABS: Haptoglobin 179 mg/dL (32-197)
[2023-05-18] MEDS: Finasteride 5 MG TAB PO (10:02)
[2023-05-18] MEDS: Metoprolol CR 50 MG TABCR PO (10:02)
[2023-05-18] MEDS: Tamsulosin 0.4 MG CAPCR PO (10:02)
[2023-05-18] MEDS: Losartan 50 MG TAB PO (10:02)
[2023-05-18] MEDS: Rosuvastatin 20 MG TAB PO (10:03)
[2023-05-18] MEDS: Cyanocobalamin 1000 MCG/ML VIAL IM/SC (10:03)
[2023-05-18 10:21] LABS: HIV-1/2 Ag & Ab Screen Negative (Negative)
[2023-05-18 10:34] LABS: Hepatitis A Antibody IgM Negative (Negative); Hepatitis B Core Antibody Negative (Negative); Hepatitis B surface Ag Negative (Negative); Hepatitis C Ab w Rflx HCV PCR Negative (Negative)
[2023-05-18] MEDS: cefTRIAXone 2 GM/50 ML BAG IVPB (10:40)
[2023-05-18 11:02] LABS: Lyme Ab w Rflx to Lyme Confirm Negative (Negative)
[2023-05-18 11:26] LABS: Bilirubin Negative (Negative); Blood Moderate (Negative); Clarity Clear (Clear); Glucose 500 mg/dL (Negative); Ketones 15 mg/dL (Negative); Leukocyte Esterase Negative (Negative); Nitrite Negative (Negative); Specific Gravity 1.025 (1.005-1.025)
[2023-05-18 11:35] LABS: Epithelial Cells Rare HPF (Negative); RBC 20-50 HPF (0-2); WBC 0-2 HPF (0-5)
[2023-05-18 11:36] LABS: Bacteria Negative HPF (Negative); C & S Indicated? No; Casts 0-2 Hyaline LPF (Negative); Crystals Negative HPF (Negative); Mucus Negative (Negative)
[2023-05-18] MEDS: Ibuprofen 600 MG TAB PO ×2 (13:14→17:12)
[2023-05-18] MEDS: Prochlorperazine 10 MG/2 ML VIAL 5 MG IVP (13:14)
[2023-05-18] MEDS: Normal Saline Flush 10 ML SYR IVP (13:14)
--- NOTE | 2023-05-18 13:17 | W.PM.PROGNOT ---
Date of Service Date of service: 05/18/23 Time of Service: 13:17 Assessment and Plan Assessment and plan (1) Acute febrile illness: Status: Acute Assessment and plan: DDX: viral illness, tick borne disease, UTI (although his UA makes this unlikely but he has symptoms of his abnromal prostate w/ increased urinary hesitancy frequent voiding of small amounts) continue Rocephin pending urine and blood cultures. add doxycycline pending tick panel Blood cultures from 05/16/2023 showed no growth repeat blood cultures from 05/17/2023 showed no growth. Urine culture just grew some gram-positive jose r 10-50,[address] scan of his chest abdomen pelvis on admission showed no obvious source of infection. Lungs have a few small right lung nodules largest measuring 5 to 6 mm in size in the left lung and a small calcified granuloma no pleural effusions no infiltrates. There is no hilar or mediastinal adenopathy. His abdomen he had no ascites no bowel obstruction no lesions of his liver. Gallbladder and biliary tract showed no obvious pathology pancreas was normal spleen was normal. Kidney showed no calculi nor any hydronephrosis. He had no retroperitoneal periaortic adenopathy. Pelvic CT showed no inguinal or intrapelvic adenopathy. Urinary bladder showed no calculi or masses. Does have enlarged prostate gland measuring 6 x 5.5 cm. At this point with negative blood cultures and urine culture and no pathology on his CT scan of his chest abdomen pelvis along with his evidence for pancytopenia particularly with lymphocytopenia think likely source is a viral infection versus tickborne disease. Will continue with doxycycline and will continue with Rocephin for another 24 hours till he finalizes blood cultures. I called the lab to 2 to 3-day process to get the tick panel back and it went out in the room server hours on 05/17/2023 so I do not anticipate getting results back till 05/20/2023. (2) Weakness: Status: Acute Assessment and plan: patient w/ B12 deficiency; will give parenteral vitamin B12 and consult P.T, will recheck his Mg level since it was low on admission and was repleted in the ED but has not received any since.likely. (3) Pancytopenia: Status: Acute Assessment and plan: likely d/t tick disease vs viral illness (4) Acquired lymphocytopenia: Status: Acute Assessment and plan: likely viral syndrome vs tick borne disease (5) High serum lactate: Status: Resolved Assessment and plan: imroved after iv hydration (6) Paroxysmal atrial flutter: Status: Acute Assessment and plan: continue home meds; rate is controlled and therefor I have not put him on telemetry (7) Type 2 diabetes mellitus with microalbuminuria: Status: Acute Assessment and plan: sliding scale insulin (8) BRAXTON (obstructive sleep apnea): Status: Chronic Assessment and plan: he wears BIPAP at home. I asked his to bring in his machine from home. (9) Primary hypertension: Status: Acute Assessment and plan: contiue home meds (10) Benign prostatic hyperplasia with urinary frequency: Status: Acute Assessment and plan: add flomax to his proscar Subjective Subjective Interval history since last seen: Patient w/ continued fevers of 40.2 yesterday and 39.7 today. he denies any pain. he has dry heaves this afternoon. Exam Narrative Exam Narrative: Morbidly obese male with plethoric facial appearance. He is having dry heaves. Patient has some audible wheezing sounds to be upper airway noises. Chest no wheezing with auscultation of his lower airways particularly in the bases of his lungs or anterior chest. Heart sounds to be irregular but at a controlled rate no appreciable murmur rub Abdomen obese soft nontender no guarding or rebound tenderness Extremities trace pitting pretibial and ankle edema Objective Last Vital Signs Temp 39.7 C H 05/18/23 13:11 Pulse 73 05/18/23 12:11 Resp 22 05/18/23 12:11 BP 182/93 H 05/18/23 12:11 Pulse Ox 93 05/18/23 12:11 Laboratory Results - last 24 hr 05/17/23 05/17/23 05/18/23 05:16 16:05 06:02 Haptoglobin 179 VBG Lactate 1.9 H Sodium 139 Potassium 3.5 Chloride 103 Carbon Dioxide 27.7 Anion Gap 8.3 BUN 15 Creatinine 1.0 Est GFR (CKD-EPI 2020) 77.04 Glucose 128 H Calcium 7.9 L Total Bilirubin 0.8 AST 64 H ALT 37 Alkaline Phosphatase 30 L Total Protein 5.7 L Albumin 2.8 L Urine Color Urine Clarity Urine pH Ur Specific [place] Urine Protein Urine Ketones Urine Blood Urine Nitrite Urine Bilirubin Urine Urobilinogen Ur Leukocyte Esterase Urine RBC Urine WBC Ur Epithelial Cells Urine Crystals Urine Bacteria Urine Casts Urine Mucus Ur Culture Indicated? Urine Glucose EBV DNA, Quant Cancelled Hepatitis A IgM Ab Negative Hep Bs Antigen Negative Hep B Core Total Ab Negative Hepatitis C Antibody Negative HIV 1&2 Ag/Ab, 4th Gen Negative 05/18/23 11:00 Haptoglobin VBG Lactate Sodium Potassium Chloride Carbon Dioxide Anion Gap BUN Creatinine Est GFR (CKD-EPI 2020) Glucose Calcium Total Bilirubin AST ALT Alkaline Phosphatase Total Protein Albumin Urine Color Yellow Urine Clarity Clear Urine pH 6.0 Ur Specific [place] 1.025 Urine Protein 100 H Urine Ketones 15 H Urine Blood Moderate H Urine Nitrite Negative Urine Bilirubin Negative Urine Urobilinogen 2.0 H Ur Leukocyte Esterase Negative Urine RBC 20-50 H Urine WBC 0-2 Ur Epithelial Cells Rare Urine Crystals Negative Urine Bacteria Negative Urine Casts 0-2 Hyaline Urine Mucus Negative Ur Culture Indicated? No Urine Glucose 500 H EBV DNA, Quant Hepatitis A IgM Ab Hep Bs Antigen Hep B Core Total Ab Hepatitis C Antibody HIV 1&2 Ag/Ab, 4th Gen Time Spent with Patient Time Spent with Patient: 35-49 minutes Time was spent: preparing to see the patient(eg.review tests), obtaining and/or reviewing separately otained hiistory, ordering medications,tests, procedures, referring, communicating with other health healthcare administration internship, indepentently interpreting results, counseling the patient (I discussed his hospital course w/ his and his son who were present) and care coordination
[2023-05-18 13:47] LABS: Lab Add On Test DONE
[2023-05-18 13:57] LABS: Magnesium 1.9 mg/dL (1.8-2.4)
--- NOTE | 2023-05-18 14:17 | CMPROGNOTE_ITS ---
Date of service: 05/18/23 Time of Service: 14:18 Care Management Progress Note Progress Note Text Progress Note Text: S/O: Bobo remains inpatient; he was evaluated by PT this morning and did quite well, walking 250 ft with a walker and stand by assist with rests. Home health services for PT are being recommended for discharge. Per MD, Bobo is being treated empirically for viral infection versus tickborne disease; results anticipated 05/20/23. CM continues to follow. A: 77 year old male admitted to [facility] 05/17/23 for Weakness P: Anticipate Bobo will be discharged home, new home health services for PT, when medically stable. He will follow up with his PCP and plan of care and transport with family. CM will follow and continue to assess for discharge needs. SDOH(Care Management) Screening Will the Patient Participate in the Screening?: Unable to obtain Do you worry about having a steady place to live?: no In the past 12 months, have you had to go without electric, gas, oil or water in your home?: no Have you or anyone in your house had to go without enough food to eat?: no Has lack of transportation kept you from medical appointments or from doing things needed for daily living?: no Has anyone in your support network made you feel unsafe for any reason?: no
--- NOTE | 2023-05-18 15:05 | PT.INTREAT ---
PT Notes Visit Reasons: Weakness Date: 05/18/23 PRECAUTIONS: Fall. Standard. Activity as tolerated. SUBJECTIVE: Pt in recliner sleeping when approached for therapy this afternoon, pt inside the room, reports the pt has been feeling weak, reports the pt recently had increased temp, and has been sleeping a lot. pt woke up while pt was talking with this therapist, pt wanted to try and go for a walk but reports feeling very fatigued. OBJECTIVE: ?on NC 2L 02 support VITALS: BP before ambulation 114/49 mmHg, after walking 118/55 mmHg O2 sat before walking 95% on RA, after walking 96% on RA HR before walking 51bpm, after walking 56 bpm ? Therapeutic Activities [id number]: Direct one-on-one instruction in dynamic activities to improve functional performance. ?? BED MOBILITY/TRANSFERS? Rolling L/R: not performed Supine-sit: ?not performed? Sit-supine: ? not performed? Sit-stand: ? CGA ? Stand-sit: ??CGA ? Bed-Chair:? Not performed ? Chair-bed: Not performed Provided skilled cues and instruction on performance and technique throughout. Gait Training [id number]: Direct one-on-one instruction and skilled instruction in: Employing an assistive device Modified weight-bearing status Movement sequencing Turning and movement with proper form Provided verbal cues for equipment management and technique Provided instruction in gait pattern Patient education regarding pacing and breathing techniques to maximize activity tolerance? GAIT? Assistive Device: ??FWW? Weight bearing: FWB Assist: ?CGA ? Distance:?? 10'x2 seated rest break in between distance? Deviation: ?Stoop forward, WBOS, low step height, short step length ? ASSESSMENT:?Pt required rest breaks during O2 support setup from wall supply to portable tank, rest break after getting gown cover for the back area, rest break after reaching the door, pt cue for DBE to help with SOB. PLAN: Continue with balance training, global strengthening and general conditioning for improved safety, mobility and activity tolerance until pt is ready for DC. TREATMENT CODE/TIME: 18759o8, 38124o3 30mins (2:35-3:05pm)
[2023-05-18] MEDS: Rivaroxaban 10 MG TABLET 20 MG PO (17:12)
[2023-05-19] VITALS (11 sets, daily range): BP systolic 106–171; BP diastolic 62–84; PULSE 44–80; RESP 18–21; TEMP 35.1–38.7; O2SAT 92–99
[2023-05-19] MEDS: ACETAMINOPHEN 1,000 MG/100 ML BTL 400 MG IVPB ×2 (06:28→14:08)
[2023-05-19 06:39] LABS: HCT 35.3 % (40.0-50.0); MCH 30.9 pg (27.0-33.0); MCV 91 fL (80-95); MPV 11.6 fL (8.0-11.0); RBC 3.88 10^6/uL (4.36-5.78); RDW 12.9 % (11.8-14.1); RDW-SD 42.8 fL; WBC 2.68 10^3/uL (4.4-10.8)
[2023-05-19 07:04] LABS: ALT 45 U/L (16-63); AST 59 U/L (15-37); Albumin 2.9 g/dL (3.4-5.0); Alkaline Phosphatase 34 U/L (46-116); Anion Gap 7.5 mmol/L (3-11); BUN 17 mg/dL (7-18); Bilirubin, Total 0.8 mg/dL (0.2-1.0); CO2 27.5 mmol/L (21.0-32.0); Calcium 8.3 mg/dL (8.5-10.1); Chloride 105 mmol/L (98-107); Estimated GFR 77.04 (mL/min/1.73m2); Glucose 153 mg/dL (74-106); Potassium 3.5 mmol/L (3.5-5.1); Sodium 140 mmol/L (136-145); Total Protein 6.1 g/dL (6.4-8.2)
[2023-05-19 07:13] LABS: Procalcitonin 0.5 ng/mL
[2023-05-19 07:18] LABS: Absolute Lymphocyte Count 0.51 10^3/uL (1.2-3.4); Absolute Monocyte Count 0.13 10^3/uL (0.1-0.8); Absolute Neutrophil Count 2.04 10^3/uL (1.2-6.7); Atypical Lymphocytes % 4; Bands % 8; Diff Comment Manual Differential; Platelet Count 49 10^3/uL (130-400); RBC Morphology Normal
--- NOTE | 2023-05-19 08:41 | PDOC.CMPRO ---
Date of service: 05/19/23 Time of Service: 08:41 Care Management Progress Note Progress Note Text Progress Note Text: S/O: Steve was sitting up in a chair visiting with his when CM met with him. He was smiling and looked much better than when last seen by CM. Steve stated that he was also feeling much improved. He remains febrile intermittently, with T-max today of 38.7. Yesterday his T-max was 39.7; each day it seems a little better. Steve continues to have ongoing pancytopenia. His WBC is down to 2.68, absolute lymphocyte count 0.51 and platelet count 49. All send-out tests are back, including those for tickborne illnesses, and all are negative. The only outstanding tests at this point is EBV quant. He shared that he believes he will need to remain in the hospital for at least another day or two. A: 77 year old male admitted to [facility] 05/17/23 for Weakness P: Anticipate Bobo will be discharged home, new home health services for PT, when medically stable. He will follow up with his PCP and plan of care and transport with family. CM will follow and continue to assess for discharge needs. SDOH(Care Management) Screening Will the Patient Participate in the Screening?: Unable to obtain Do you worry about having a steady place to live?: no In the past 12 months, have you had to go without electric, gas, oil or water in your home?: no Have you or anyone in your house had to go without enough food to eat?: no Has lack of transportation kept you from medical appointments or from doing things needed for daily living?: no Has anyone in your support network made you feel unsafe for any reason?: no
[2023-05-19] MEDS: Finasteride 5 MG TAB PO (09:18)
[2023-05-19] MEDS: cefTRIAXone 2 GM/50 ML BAG IVPB (09:18)
[2023-05-19] MEDS: metFORMIN 500 MG TAB 1000 MG PO (09:18)
[2023-05-19] MEDS: Losartan 50 MG TAB PO (09:19)
[2023-05-19] MEDS: Rosuvastatin 20 MG TAB PO (09:19)
[2023-05-19] MEDS: Cyanocobalamin 1000 MCG/ML VIAL IM/SC (09:19)
[2023-05-19] MEDS: Tamsulosin 0.4 MG CAPCR PO (09:19)
[2023-05-19] MEDS: DOXYCYCLINE 100 MG in Normal Saline 100 ML IVPB ×2 (09:50→22:35)
[2023-05-19 10:08] LABS: Homocysteine 12.5 umol/L (5.0-13.9)
[2023-05-19 10:10] LABS: CMV IgG Antibody Negative (See Note)
[2023-05-19] MEDS: Ibuprofen 600 MG TAB PO (10:14)
[2023-05-19 10:22] LABS: CMV Ab, IgM Negative (Negative); EBV EA IgG Negative (Negative)
--- NOTE | 2023-05-19 13:45 | PT.INTREAT ---
PT Notes Visit Reasons: Weakness Physical Therapy Inpatient treatment Note Date: 05/19/2023 Precautions: Fall. Standard. Activity as tolerated. Subjective: Looking forward to going home once medically cleared. Still waiting on MD about what is causing his continued fever. Objective: General Observation: Resting in bed. Aburto catheter in place. High BMI. Telemetry in place. Mental Status: Alert and oriented as to person, place, time, and purpose. Able to pay attention, focus, and respond appropriately. Pain: None reported Vital Signs: BP after walking 133/64 mmHg O2 sat after walking 95% on RA HR after walking 75 bpm Bed Mobility/Transfers: Minimal cueing provided for use of B hands as needed for support, movement sequence, AD management, and posture to reduce fall risk and minimize pain report Sit to stand standby assist with FWW Stand to sit standby assist with FWW Bed to reclining chair standby assist with FWW Reclining chair to bed standby assist with FWW Gait: Facilitated safe and correct performance of level surface ambulation covering a distance of 250 feet using front-wheeled walker with standby assist and wheelchair follow for safety. Patient did not demonstrate any shortness of breath nor loss of balance throughout. Denied lightheadedness throughout. Balance: Static Sitting: Normal Dynamic Sitting: Normal Static Standing: Fair Dynamic Standing: Fair THERA EX: Seated marches x 10 LAQs x 10 Hip IR and ER x 10 Ankle pumps x 10 Assessment: Able to tolerate above distance without any shortness of breath or loss of balance. Did initially had a spike in BP right after walking measuirng 155/100 mmHg but softened back to 133/65 mmHg after 5 minutes, patient was not symptomatic. Denied headache, chest pain, and lightheadedness throughout. Plan of Care/Treatment Plan: 1-2x/day, 7 days/week x 1 week. Continue with Physical Therapy intervention for pain management as needed, strengthening, bed mobility, transfers, gait, stairs, balance training, and use of assistive device. DISCHARGE RECOMMENDATIONS: [] Home with no services [] [X] Home with services. Patient will benefit from home health PT services in order to progress mobility level using least restrictive assistive ambulatory device, assess home safety, identify additional equipment needs, and establish a functional maintenance program that will increase ability of patient to remain at home. [] Home with outpatient PT [] [] SNF for continued rehabilitation [] [] Residential Care [] [] SNF versus LTC based on ability to participate and progress [] TREATMENT CODE/TIME: 46010 x 20 minutes for 1 unit, 87137 x 12 minutes for 1 unit (13:10?13:42).
--- NOTE | 2023-05-19 14:01 | W.PM.PROGNOT ---
Date of Service Date of service: 05/19/23 Time of Service: 14:01 Assessment and Plan Assessment and plan (1) Acute febrile illness: Status: Acute Assessment and plan: DDX: viral illness, tick borne disease, UTI (although his UA makes this unlikely but he has symptoms of his abnromal prostate w/ increased urinary hesitancy frequent voiding of small amounts) continue Rocephin pending urine and blood cultures. add doxycycline pending tick panel Blood cultures from 05/16/2023 showed no growth repeat blood cultures from 05/17/2023 showed no growth. Urine culture just grew some gram-positive jose r 10-50,[address] scan of his chest abdomen pelvis on admission showed no obvious source of infection. Lungs have a few small right lung nodules largest measuring 5 to 6 mm in size in the left lung and a small calcified granuloma no pleural effusions no infiltrates. There is no hilar or mediastinal adenopathy. His abdomen he had no ascites no bowel obstruction no lesions of his liver. Gallbladder and biliary tract showed no obvious pathology pancreas was normal spleen was normal. Kidney showed no calculi nor any hydronephrosis. He had no retroperitoneal periaortic adenopathy. Pelvic CT showed no inguinal or intrapelvic adenopathy. Urinary bladder showed no calculi or masses. Does have enlarged prostate gland measuring 6 x 5.5 cm. At this point with negative blood cultures and urine culture and no pathology on his CT scan of his chest abdomen pelvis along with his evidence for pancytopenia particularly with lymphocytopenia think likely source is a viral infection versus tickborne disease. I will continue his doxycycline but stop his Rocephin, continue to monitor his fevers, check his tick panel results. Professional time spent interviewing and examining patient, discussion of goals of care with hospital team (care management, nursing and consulting professionals) was 30 minutes. (2) Weakness: Status: Acute Assessment and plan: patient w/ B12 deficiency; will give parenteral vitamin B12 and consult P.T,repeat Mg level now normal at 1.9. (3) Pancytopenia: Status: Acute Assessment and plan: likely d/t tick disease vs viral illness (4) Acquired lymphocytopenia: Status: Acute Assessment and plan: likely viral syndrome vs tick borne disease (5) High serum lactate: Status: Resolved Assessment and plan: imroved after iv hydration (6) Paroxysmal atrial flutter: Status: Acute Assessment and plan: holding Toprol XL d/t bradycardia, may resume at lower dose tomorrow. (7) Type 2 diabetes mellitus with microalbuminuria: Status: Acute Assessment and plan: sliding scale insulin (8) BRAXTON (obstructive sleep apnea): Status: Chronic Assessment and plan: he wears BIPAP at home. I asked his to bring in his machine from home. (9) Primary hypertension: Status: Acute Assessment and plan: contiue home meds (10) Benign prostatic hyperplasia with urinary frequency: Status: Acute Assessment and plan: add flomax to his proscar trial of spontaneous voiding, if unsuccessful then will have nursing re-insert garner and have patient follow up w/ Dr. Bautista. Subjective Subjective Interval history since last seen: Bobo is feeling better today. He did well w/ walking for PT around the nursing unit. He still has fevers but his fever spikes have not been as high. Tmax 38.7 this morning (this is the highest he has been since yesterday afternoon). Nursing has been medicating him w/ APAP alternate w/ motrin. He remains on Ceftriaxone 2 gm daily and doxycycline 100 mg IVPB q12h. His Lyme antibody was negative but the DNA PCR for Babesiosis and for Anaplasmosis is still pending. His heart rhythm has been sinus to sinus bradycardia w/ HR as low as 39 bpm. I have held his Toprol XL today but will probably restart tomorrow at lower dose. No evidence for heart block. Exam Narrative Exam Narrative: Bobo is sitting up in his chair talking w/ his family, no acute distress, no rigors or chills this afternoon. Lungs: clear Heart: regular, no murmur Abdomen: obese, soft, nontender Garner draining clear yellow urine. Objective Last Vital Signs Temp 38.7 C H 05/19/23 11:26 Pulse 80 05/19/23 11:26 Resp 18 05/19/23 11:26 BP 171/74 H 05/19/23 11:26 Pulse Ox 92 05/19/23 11:26 Laboratory Results - last 24 hr 05/17/23 05/17/23 05/17/23 01:19 05:16 12:45 WBC RBC Hgb Hct MCV MCH MCHC RDW Plt Count MPV Immature Gran % Neutrophils % Band Neutrophils % Lymphocytes % Atypical Lymphs % Monocytes % Eosinophils % Basophils % Nucleated RBC % Absolute Neutrophils Absolute Lymphocytes Absolute Monocytes Absolute Eosinophils Absolute Basophils RBC Morphology Sodium Potassium Chloride Carbon Dioxide Anion Gap BUN Creatinine Est GFR (CKD-EPI 2020) Glucose Calcium Total Bilirubin AST ALT Alkaline Phosphatase Total Protein Albumin Homocysteine 12.5 Procalcitonin Lyme Disease Antibody Negative CMV IgG Ab Negative CMV IgM Ab Negative EBV Early Antigen IgG Negative Pathology Consult Spec 05/19/23 06:07 WBC 2.68 L RBC 3.88 L Hgb 12.0 L Hct 35.3 L MCV 91 MCH 30.9 MCHC 34.0 RDW 12.9 Plt Count 49 L MPV 11.6 H Immature Gran % 0.0 Neutrophils % 68.0 Band Neutrophils % 8 Lymphocytes % 15.0 Atypical Lymphs % 4 Monocytes % 5.0 Eosinophils % 0.0 Basophils % 0.0 Nucleated RBC % 0.0 Absolute Neutrophils 2.04 Absolute Lymphocytes 0.51 L Absolute Monocytes 0.13 Absolute Eosinophils 0.00 Absolute Basophils 0.00 RBC Morphology Normal Sodium 140 Potassium 3.5 Chloride 105 Carbon Dioxide 27.5 Anion Gap 7.5 BUN 17 Creatinine 1.0 Est GFR (CKD-EPI 2020) 77.04 Glucose 153 H Calcium 8.3 L Total Bilirubin 0.8 AST 59 H ALT 45 Alkaline Phosphatase 34 L Total Protein 6.1 L Albumin 2.9 L Homocysteine Procalcitonin 0.5 Lyme Disease Antibody CMV IgG Ab CMV IgM Ab EBV Early Antigen IgG Pathology Consult Spec Time Spent with Patient Time Spent with Patient: 25-34 minutes Time was spent: preparing to see the patient(eg.review tests), ordering medications,tests, procedures, referring, communicating with other health hospice home care coordinator, indepentently interpreting results, counseling the patient (And patient's and son-in-law) and care coordination
[2023-05-19 15:23] LABS: B. miyamotoi PCR Negative (Negative); Babesia divergens/MO-1 Negative (Negative); Babesia duncani Negative (Negative); Babesia microti Negative (Negative); Ehrlichia chaffeensis Negative (Negative); Ehrlichia ewingii/canis Negative (Negative); Ehrlichia muris eauclairensis Negative (Negative)
[2023-05-19 15:39] LABS: Anaplasma phagocytophilum Positive (Negative)
[2023-05-19] MEDS: Rivaroxaban 10 MG TABLET 20 MG PO (17:00)
[2023-05-19] MEDS: Melatonin 3 MG TAB PO (22:40)
[2023-05-19] MEDS: Magnesium Oxide 400 MG TAB PO (22:41)
[2023-05-20] MEDS: ACETAMINOPHEN 1,000 MG/100 ML BTL 400 MG IVPB ×2 (02:49→07:51)
[2023-05-20 03:29] VITALS: BP 159/72; PULSE 60; RESP 18; TEMP 36.8; O2SAT 95
[2023-05-20 07:02] LABS: HCT 31.6 % (40.0-50.0); MCH 31.2 pg (27.0-33.0); MCHC 34.8 % (32.0-36.0); MCV 90 fL (80-95); MPV 11.6 fL (8.0-11.0); RBC 3.53 10^6/uL (4.36-5.78); RDW 12.8 % (11.8-14.1); RDW-SD 42.3 fL; WBC 3.56 10^3/uL (4.4-10.8)
[2023-05-20 07:25] LABS: ALT 41 U/L (16-63); AST 45 U/L (15-37); Albumin 2.6 g/dL (3.4-5.0); Alkaline Phosphatase 34 U/L (46-116); Anion Gap 8.2 mmol/L (3-11); BUN 16 mg/dL (7-18); Bilirubin, Total 0.9 mg/dL (0.2-1.0); CO2 26.8 mmol/L (21.0-32.0); CREATININE 0.9 mg/dL (0.70-1.30); Calcium 8.1 mg/dL (8.5-10.1); Chloride 105 mmol/L (98-107); Estimated GFR 87.42 (mL/min/1.73m2); Glucose 127 mg/dL (74-106); Potassium 3.3 mmol/L (3.5-5.1); Sodium 140 mmol/L (136-145); Total Protein 5.6 g/dL (6.4-8.2)
[2023-05-20 07:34] VITALS: BP 145/88; PULSE 59; RESP 18; TEMP 36.9; O2SAT 96
[2023-05-20 07:51] LABS: Platelet Count 62 10^3/uL (130-400)
[2023-05-20 07:52] LABS: Absolute Lymphocyte Count 0.57 10^3/uL (1.2-3.4); Absolute Neutrophil Count 2.49 10^3/uL (1.2-6.7); Bands % 1
[2023-05-20] MEDS: Losartan 50 MG TAB PO (07:52)
[2023-05-20] MEDS: Finasteride 5 MG TAB PO (07:52)
[2023-05-20] MEDS: Cyanocobalamin 1000 MCG/ML VIAL IM/SC (07:52)
[2023-05-20] MEDS: Tamsulosin 0.4 MG CAPCR PO (07:52)
[2023-05-20] MEDS: metFORMIN 500 MG TAB 1000 MG PO (07:52)
[2023-05-20] MEDS: Magnesium Oxide 400 MG TAB PO (07:52)
[2023-05-20] MEDS: Rosuvastatin 20 MG TAB PO (07:52)
[2023-05-20 07:53] LABS: Diff Comment Manual Differential; RBC Morphology Normal
[2023-05-20] MEDS: Normal Saline Flush 10 ML SYR IVP (07:53)
[2023-05-20] MEDS: DOXYCYCLINE 100 MG in Normal Saline 100 ML IVPB (08:02)
[2023-05-20] MEDS: Potassium Chloride 10 MEQ CAPCR 20 MEQ PO (08:07)
[2023-05-20] MEDS: cefTRIAXone 2 GM/50 ML BAG IVPB (09:25)
--- NOTE | 2023-05-20 09:49 | PDOC.CMPRO ---
Date of service: 05/20/23 Time of Service: 09:49 Care Management Progress Note Progress Note Text Progress Note Text: S/O: Steve was sitting up in a chair when CM met with him. A: 77 year old male admitted to [facility] 05/17/23 for Weakness P: Anticipate Bobo will be discharged home, new home health services for PT, when medically stable. He will follow up with his PCP and plan of care and transport with family. CM will follow and continue to assess for discharge needs. SDOH(Care Management) Screening Will the Patient Participate in the Screening?: Unable to obtain Do you worry about having a steady place to live?: no In the past 12 months, have you had to go without electric, gas, oil or water in your home?: no Have you or anyone in your house had to go without enough food to eat?: no Has lack of transportation kept you from medical appointments or from doing things needed for daily living?: no Has anyone in your support network made you feel unsafe for any reason?: no
[2023-05-20 11:09] LABS: Methylmalonic Acid 0.83 nmol/mL (<=0.40)
--- NOTE | 2023-05-20 13:13 | W.PM.DS.N ---
Date of service: 05/20/23 Time of Service: 13:13 DS: Diagnosis Discharge Diagnosis (1) Acute febrile illness: Status: Acute (2) Weakness: Status: Acute (3) Pancytopenia: Status: Acute (4) Acquired lymphocytopenia: Status: Acute (5) High serum lactate: Status: Resolved (6) Paroxysmal atrial flutter: Status: Acute (7) Type 2 diabetes mellitus with microalbuminuria: Status: Acute (8) BRAXTON (obstructive sleep apnea): Status: Chronic (9) Primary hypertension: Status: Acute (10) Benign prostatic hyperplasia with urinary frequency: Status: Acute Discharge Plan Disposition Patient Disposition: Home W/Home Health Services Condition: Improving Discharge Details Reason For Visit: Weakness Admit Date/Time: 05/17/23 06:04 Admit Provider: Fan Dominguez Attending Provider: Fan Dominguez Primary Care Provider: Sadi Rogers Hospital Course Hospital Course: 72-year-old male with history of type 2 diabetes mellitus, BRAXTON, hypercholesterolemia, BPH, PAF who presented with generalized weakness falling down at home and fevers please see admission H&P and ED note for details. In summary Mr. Meza was worked up for possible sepsis had negative blood cultures and urine cultures he was showing evidence of urinary retention required Garner placement. His Flomax was restarted.He had repeated fever spikes despite being treated with IV ceftriaxone for presumptive UTI. When he continued to have fevers tick panel was drawn and he was started on doxycycline empirically. Further workup of his weakness revealed him to be hypomagnesemic and hypokalemic and to have a vitamin B12 deficiency probably brought on by his metformin use. He was given daily injections of vitamin B12 1000 mcg. He was treated with the doxycycline and eventually his fever subsided. 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 Fever subsided and he was afebrile for over 24 hours before and discharged home. He will be discharged home on a 14-day course of doxycycline 100 mg twice a day and placed on supplements of vitamin B12 magnesium and potassium and new prescription for Flomax. Home Meds and New Rx's Prescriptions: New doxycycline hyclate 100 mg tablet 100 mg PO BID 14 Days Qty: 28 0RF potassium chloride 20 mEq/15 mL liquid 20 meq PO DAILY Qty: 450 0RF magnesium oxide 500 mg magnesium tablet 500 mg PO BID Qty: 60 0RF mecobalamin (vitamin B12) 1,000 mcg tablet,disintegrating 1,000 mcg sublingual DAILY Qty: 30 0RF Rx Instructions: place tablet under tongue and allow to dissolve for at least30 secs before swallowing Continued cholecalciferol (vitamin D3) 125 mcg (5,000 unit) capsule 125 mcg PO DAILY losartan 50 mg tablet 50 mg PO DAILY metformin 1,000 mg tablet 1,000 mg PO BID saw palmetto 500 mg capsule 1,000 mg PO DAILY Rx Instructions: give with food (meal/snack) rosuvastatin 20 mg tablet 20 mg PO DAILY melatonin 5 mg capsule 5 mg PO DAILY PRN finasteride 5 mg tablet 5 mg PO DAILY Xarelto 20 mg tablet 20 mg PO DAILY Rx Instructions: must administer with evening meal glipizide 2.5 mg tablet extended release 24hr 2.5 mg PO DAILY pioglitazone 15 mg tablet 15 mg PO DAILY trospium 20 mg tablet 20 mg PO DAILY tamsulosin [Flomax] 0.4 mg capsule 0.4 mg PO QHS Qty: 30 0RF Changed metoprolol succinate 50 mg tablet extended release 24 hr 25 mg PO DAILY Qty: 90 3RF Discontinued cephalexin 500 mg capsule 500 mg PO QID 5 Days Qty: 20 0RF Discharge Instructions Instructions: Tick Bite (GEN) Additional Instructions: You were evaluated and treated for acute febrile illness, urinary retention from your prostate, general weakness and were found to be deficient in magnesium, potassium and vitamin B12. 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 This is a tick borne disease similar to Lyme's disease which can cause very high fevers, chills and cause low blood counts and liver enzyme elevations. You were initially thought to have a urinary tract infection and were treated w/ intravenous antibiotics including Ceftriaxone. However, your fevers did not miryam until you were put on doxycycline which is the preferred antibiotic for Anaplasmosis. You were found to be deficient in vitamin B12 and were given shots of vitamin B12 while hospitalized. An order for prescription for vitamin B12 has been sent to your pharmacy along with orders for potassium and magnesium replacement and a 14 day course of doxycycline to treat the anaplasmosis. You should follow up w/ your primary care provider within the next week. He should order follow up labs to recheck your potassium and magnesium levels and also he should recheck your B12 levels (he may want to repeat the methylmalonic acid levels which is a byproduct of B12 metabolism). You should make a full recovery from the Anaplasmosis. B12 deficiency may have been due to your metformin. This is not uncommon and you should remain on B12 supplements but you may need to go on B12 injections if the metformin is preventing your absorption of the B12. Discuss this w/ your provider. B12 can be easily given as an injection at home. Usually once monthly treatment is sufficient but you may need weekly injections at first to replenish your B12 Stand Alone Forms: Nursing Discharge Form Referrals: Sadi Rogers [Primary Care Provider] - (Please call for an apt within 10-14 days. ) Activity:: Activity as Tolerated Equipment/Supplies:: No Equipment Needed Diet:: Carb Counting Discharge Orders Discharge Orders: Discharge Order (Routine); Ordered 05/20/23 Ordered By: Alvin Saldivar Other Ambulatory Orders: Holter Monitor (Routine) Timeframe: 1 Day Facility: [facility] - Location: Respiratory Therapy Ordered By: Alvin Saldivar Discharge Data Discharge Date/Time-TO BE ENTERED AT DEPARTURE: 05/20/23 14:08 DS: Summary Time Spent with Patient providing and/or coordinating discharge services: Greater than 30 minutes Specific discharge activities: Interview/exam of patient; review of discharge instructions, completion of prescriptions/discharge instructions; discussion w/ nursing and CM; documentation of hospital visit Status at Discharge Functional status at discharge: uses cane/walker Overall status at discharge: patient is progressing back to baseline Mental Status: mental status grossly normal Speech and Movement: speech and movement normal Mood: congruent mood Affect: normal affect Quality:SDOH Health Related Social Needs: No Data to Display Exam Narrative Exam Narrative: Bobo is feeling markedly better and is looking forward to going home. No fevers overnight. Tmax 37.1 (last fever was yesterday at 11:26 when he was 38.7). He is voiding ok since garner came out yesterday Lungs: clear Heart: regular, no murmur or rub Extremities: no edema Psych Mental Status: mental status grossly normal Speech and Movement: speech and movement normal Mood: congruent mood Affect: normal affect DS: Data Vitals/I&O Vitals and I&O: Vital Signs Temperature 36.9 C 05/20/23 07:34 Temperature Source Tympanic 05/20/23 07:34 Pulse 59 L 05/20/23 07:34 Pulse Rhythm Regular 05/20/23 08:00 Pulse Strength Normal 05/17/23 02:58 Pulse 67 05/17/23 07:20 Respiratory Rate 18 05/20/23 07:34 Respiratory Effort Normal 05/20/23 08:00 Respiratory Depth Normal 05/20/23 08:00 Respiratory Pattern Normal 05/20/23 08:00 Blood Pressure 145/88 H 05/20/23 07:34 Blood Pressure Mean 95 05/17/23 07:01 Blood Pressure Position Supine 05/17/23 02:58 Pulse Oximetry 96 05/20/23 07:34 Oxygen Delivery Method Room Air 05/20/23 07:34 Oxygen Flow Rate 0 05/20/23 07:34 Pain Level 0 05/20/23 07:34 Comment MD Saldivar at bedside, aware of patient temperature and condition 05/18/23 13:11 Intake & Output 05/19/23 05/20/23 05/20/23 23:59 11:59 23:59 Intake Total 340 / 710 200 / 200 Output Total 2500 / 3950 Balance -2160 / -3240 200 / 200 Intake: IV 100 / 470 200 / 200 Oral 240 / 240 Output: Urine 2500 / 3950 Other: Urine Color Yellow Urine Appearance Clear Clear Comment pT stated that the nurse just came in and emptied urinal. Stool Size Moderate Stool Characteristics Soft Voiding Methods Urinal Urinal Data Completed and Pending Labs on day of discharge: Labs from last 24 hours 05/20/23 05/17/23 05/17/23 06:16 12:45 05:16 WBC 3.56 L RBC 3.53 L Hgb 11.0 L Hct 31.6 L MCV 90 MCH 31.2 MCHC 34.8 RDW 12.8 Plt Count 62 L MPV 11.6 H Immature Gran % 0.0 Neutrophils % 69.0 Band Neutrophils % 1 Lymphocytes % 16.0 Monocytes % 14.0 Eosinophils % 0.0 Basophils % 0.0 Nucleated RBC % 0.0 Absolute Neutrophils 2.49 Absolute Lymphocytes 0.57 L Absolute Monocytes 0.50 Absolute Eosinophils 0.00 Absolute Basophils 0.00 RBC Morphology Normal Sodium 140 Potassium 3.3 L Chloride 105 Carbon Dioxide 26.8 Anion Gap 8.2 BUN 16 Creatinine 0.9 Est GFR (CKD-EPI 2021) 87.42 Glucose 127 H Calcium 8.1 L Total Bilirubin 0.9 AST 45 H ALT 41 Alkaline Phosphatase 34 L Total Protein 5.6 L Albumin 2.6 L Homocysteine 12.5 B. divergens/MO-1 PCR Babesia duncani (PCR) Babesia microti DNA PCR CMV IgG Ab Negative CMV IgM Ab Negative E.chaffeensis DNA (PCR) E.ewingii/canis DNA PCR E.muris eauclairensis (PCR) EBV Early Antigen IgG Negative A. phagocytophilum (PCR) Blood B. miyamotoi (PCR) 05/17/23 01:19 WBC RBC Hgb Hct MCV MCH MCHC RDW Plt Count MPV Immature Gran % Neutrophils % Band Neutrophils % Lymphocytes % Monocytes % Eosinophils % Basophils % Nucleated RBC % Absolute Neutrophils Absolute Lymphocytes Absolute Monocytes Absolute Eosinophils Absolute Basophils RBC Morphology Sodium Potassium Chloride Carbon Dioxide Anion Gap BUN Creatinine Est GFR (CKD-EPI 2020) Glucose Calcium Total Bilirubin AST ALT Alkaline Phosphatase Total Protein Albumin Homocysteine B. divergens/MO-1 PCR Negative Babesia duncani (PCR) Negative Babesia microti DNA PCR Negative CMV IgG Ab CMV IgM Ab E.chaffeensis DNA (PCR) Negative E.ewingii/canis DNA PCR Negative E.muris eauclairensis (PCR) Negative EBV Early Antigen IgG A. phagocytophilum (PCR) Positive A Blood B. miyamotoi (PCR) Negative Preliminary micro results at discharge 05/17/23 01:10 Blood Culture - Preliminary Blood NO GROWTH 72 HOURS 05/17/23 01:19 Blood Culture - Preliminary Blood NO GROWTH 72 HOURS PFSH All Active Problems Acute febrile illness (Acute) Acquired lymphocytopenia (Acute) Weakness (Acute) Pancytopenia (Acute) Acute UTI (Acute) Weakness (Acute) Coronary artery disease (Chronic) 12/18/21 pt had PTCA w stent to LAD at [facility] Abnormal nuclear stress test (Acute) Paroxysmal atrial flutter (Acute) Trochanteric bursitis, right hip (Acute) Pes anserinus bursitis of left knee (Acute) Osteoarthritis of left knee (Acute) Steroid injection: 12/16/2020 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) Insomnia (Acute) Presbycusis of both ears (Acute) BRAXTON (obstructive sleep apnea) (Chronic) Morbid obesity (Acute) Hypercholesterolemia (Acute) Primary hypertension (Acute) Benign prostatic hyperplasia with urinary frequency (Acute) Medical History Atrial flutter Kidney stone Social History Smoking/Tobacco Use Status: Former Tobacco Use Smoking risk assessment performed?: Yes Alcohol Intake: former Drug use: Never Substance use type: does not use Housing: house Do you feel safe at home: Yes Do you feel safe in your relationship?: Yes Time Spent with Patient Time Spent with Patient: <45 minutes Time was spent: preparing to see the patient(eg.review tests), ordering medications,tests, procedures, referring, communicating with other health customer care associate, indepentently interpreting results, counseling the patient and care coordination
--- NOTE | 2023-05-20 13:19 | PDOC.HHF2F ---
Home Health Referral Home Health Orders Clinical synopsis of why skilled professionals are needed: patient needs home P.T. to improve gait, balance and strength. See inpatient P.T. consults notes Medical diagnosis necessitation home health referral: Generalized weaknes, gait imbalance d/t recent Anaplasmosis infection, hypokalemia, hypomagnesemia, and B12 deficiency Physical Therapist: Check all that apply Increase strength & endurance for safe mobility at home: Ordered To design/establish home maintenance program: Ordered Fall reduction therapy program for patient with history of frequent falls: Ordered Home safety evaluation and teaching/gait training including stair management (if applicable): Ordered Home Bound Status Requires the aid of supportive device (check all that apply): Wheelchair Describe why leaving home would require a considerable and taxing effort: Requires frequent rest periods and Safety Concerns: describe (general weakness and unsteady balance, risk of falls) Encounter Date and Reason: I certify that a FTF encounter for this patient was performed on May 20, 2023 and that such encounter was related to the primary reason the patient requires home health services. The encounter was conducted in the following manner: By me as the certifying physician, HEALTH SERVICES DIRECTOR, PA or By an inpatient physician, HEALTH SERVICES DIRECTOR or PA during an inpatient stay who communicated findings to me, Certification And Authentication I certify that I composed the above information based on my clinical judgment relating to this patient's medical condition and, if applicable, clinical findings communicated to me by the NPP or inpatient physician who performed the FTF encounter. Name of Provider that will be monitoring home health services: Sadi Rogers
--- NOTE | 2023-05-20 13:36 | PDOC.CMDIS ---
Date of service: 05/20/23 Time of Service: 13:36 LACE Index Scoring Tool Questions: Length of Stay (in days): 3 Was the patient admitted via the E.D.?: Yes Comorbidities: Diabetes w/o Complication E.D. Visits: 2 Answers: Total Score: 9 Risk of Readmission: Low Risk Care Management Discharge Plan Reason for Hospitalization: weakness Discharge Plan: Steve will be discharged home with new home health orders for PT. He will follow up with his PCP and plan of care and transport with his Erinn. Patient/Family Education Needs: Review of discharge instructions, activity, limitations, follow up plan, discuss Ask Me Three Services Needed at Discharge: Home Health Care Services SDOH Health Related Social Needs: No Data to Display
[2023-05-20 16:05] LABS: EBV DNA Detect/Quant, P Undetected IU/mL (Undetected)
== END 2023-05-20 14:08 | disposition home health service (06) | DRG 868 ==
LOC: ER 06:06 → MS 07:47
PROVIDERS: Internal Medicine; Admitting Provider General Practice; Emergency Provider Student in an Organized Health Care Education/Training Program; PCP Internal Medicine; Visit Provider General Practice
DX: A79.82 Anaplasmosis [A. phagocytophilum] (principal); D61.818 Other pancytopenia; I48.92 Unspecified atrial flutter; Z68.42 Body mass index [BMI] 45.0-49.9, adult; I48.20 Chronic atrial fibrillation, unspecified; E87.20 Acidosis, unspecified; R50.9 Fever, unspecified; R53.1 Weakness; D72.810 Lymphocytopenia; Z79.84 Long term (current) use of oral hypoglycemic drugs; G47.33 Obstructive sleep apnea (adult) (pediatric); I10 Essential (primary) hypertension; N40.1 Benign prostatic hyperplasia with lower urinary tract symptoms; R35.0 Frequency of micturition; E83.42 Hypomagnesemia; I48.0 Paroxysmal atrial fibrillation; I25.10 Atherosclerotic heart disease of native coronary artery without angina pectoris; Z95.5 Presence of coronary angioplasty implant and graft; G47.00 Insomnia, unspecified; E66.01 Morbid (severe) obesity due to excess calories; E78.00 Pure hypercholesterolemia, unspecified; Z87.891 Personal history of nicotine dependence; R91.8 Other nonspecific abnormal finding of lung field; R29.6 Repeated falls; E53.8 Deficiency of other specified B group vitamins; E87.6 Hypokalemia; E11.9 Type 2 diabetes mellitus without complications; T38.3X5A Adverse effect of insulin and oral hypoglycemic [antidiabetic] drugs, initial encounter
CPT/HCPCS: 00123; 36415; 74177; 80053; 80186; 83090; 84145; 85652; 86663; 86704; 86709; 86803; 87040; 87340; 87389; 87637; 87798; 87799; 96361; 96374; 96375; 97110; 97116; 97162; 97530; 99285; 71260; 81003; 81015; 82607; 82728; 82746; 83010; 83605; 83615; 83735; 83880; 84100; 84484; 84550; 85025; 85045; 85379; 85610; 85730; 86140; 86618; 86644; 86645; 99223; 99231; 99232; 99238; J0131; J0696; J0780; J3420; J3475; J3490

== ENCOUNTER 2023-07-01 08:54 | Outpatient (RCR) | payer MEDICARE, BC, SELFPAY ==
--- NOTE | 2023-07-07 08:00 | HOLTER_ITS ---
APPROVED REPORT Conclusion This is a 48-hour Holter monitor Predominant rhythm is sinus with an average heart rate of 52. Minimum was 43, maximum 88 There were rare ventricular ectopic beats There were moderately frequent atrial premature beats comprising 8.6% of total There was no atrial fibrillation, no high-grade AV block, no pauses greater than 3 seconds
== END 2023-07-09 23:59 | disposition home or self-care (01) ==
LOC: CARDOPNVT 08:54
PROVIDERS: PCP Internal Medicine; Visit Provider Internal Medicine
DX: I48.0 Paroxysmal atrial fibrillation (principal); Z51.89 Encounter for other specified aftercare
CPT/HCPCS: 93228; 93225; 93226

== ENCOUNTER 2023-07-11 16:54 | Emergency (ER) | payer MEDICARE, BC, SELFPAY ==
[2023-07-11 16:57] VITALS: BP 180/76; PULSE 61; RESP 16; TEMP 36.4; O2SAT 97
--- NOTE | 2023-07-11 17:11 | DI.RAD_ITS ---
Exam(s) XR FOOT RT COMPLETE EXAM: XR FOOT RT COMPLETE CLINICAL HISTORY: right heel. TECHNIQUE: 2D digital imaging was performed of the right foot. Three images were obtained. AP, obl ique and lateral views were obtained. COMPARISON: No priors for comparison. FINDINGS: BONES: No acute fracture is present. No bony destructive lesion is seen. There is a large enthesophyt e at the posterior calcaneus. There is a large plantar calcaneal spur. JOINTS: No dislocation present. Degenerative changes are seen in the foot. SOFT TISSUE: Normal. IMPRESSION: 1. No acute fracture or dislocation. 2. Large calcaneal spurs. DATA REPOSITORY: RADIATION DOSE DELIVERED:
--- NOTE | 2023-07-11 18:06 | DI.VRAD_ITS ---
PROCEDURE INFORMATION: Exam: XR Right Foot Exam date and time: 07/11/2023 5:24 PM Age: 77 years old Clinical indication: Other: Right heel pain TECHNIQUE: Imaging protocol: Radiologic exam of the right foot. Views: 3 or more views. COMPARISON: No relevant prior studies available. FINDINGS: Bones/joints: There are prominent superior and inferior calcaneal spurs. Bone density is appropriate. Joint spaces are well preserved. Soft tissues: Normal. IMPRESSION: Significant heel spurs. Dictated and Authenticated by: Cleo Nunez MD. Ordering:PARUL Rodriguez MD
[2023-07-11 18:21] VITALS: BP 180/76; PULSE 61; RESP 16; TEMP 36.4; O2SAT 97
--- NOTE | 2023-07-12 15:56 | W.ED.GENAD ---
Discharge Plan Disposition Patient Disposition: Home Condition: Stable Discharge Details Clinical Impression: Heel spur, Heel pain Primary Care Provider: Sadi Rogers ED Provider: Jennifer Salgado Home Meds and New Rx's Prescriptions: Continued cholecalciferol (vitamin D3) 125 mcg (5,000 unit) capsule 125 mcg PO DAILY losartan 50 mg tablet 50 mg PO DAILY metformin 1,000 mg tablet 1,000 mg PO BID saw palmetto 500 mg capsule 1,000 mg PO DAILY Rx Instructions: give with food (meal/snack) rosuvastatin 20 mg tablet 20 mg PO DAILY melatonin 5 mg capsule 5 mg PO DAILY PRN finasteride 5 mg tablet 5 mg PO DAILY Xarelto 20 mg tablet 20 mg PO DAILY Rx Instructions: must administer with evening meal glipizide 2.5 mg tablet extended release 24hr 2.5 mg PO DAILY pioglitazone 15 mg tablet 15 mg PO DAILY trospium 20 mg tablet 20 mg PO DAILY potassium chloride 20 mEq/15 mL liquid 20 meq PO DAILY Qty: 450 0RF magnesium oxide 500 mg magnesium tablet 500 mg PO BID Qty: 60 0RF mecobalamin (vitamin B12) 1,000 mcg tablet,disintegrating 1,000 mcg sublingual DAILY Qty: 30 0RF Rx Instructions: place tablet under tongue and allow to dissolve for at least30 secs before swallowing metoprolol succinate 50 mg tablet extended release 24 hr 25 mg PO DAILY Qty: 90 3RF Discharge Instructions Instructions: Leg Pain (ED) Additional Instructions: Wear the boot for comfort, follow-up with podiatry tomorrow apply voltaren gel topically tylenol as needed for pain blood pressure rechecked by pcp this week return earlier with spreading redness, fever, worsening swelling, or should any new concerns arise Referrals: Rosalind Barajas DPM [[facility] STAFF PHYSICIAN] - Discharge Data Discharge Date/Time-TO BE ENTERED AT DEPARTURE: 07/11/23 18:21 HPI General Date/Time Provider Initiated Documentation: 07/11/23 17:03. HPI Narrative: This 77-year-old male presents with right heel pain that started abruptly yesterday without trauma. He states the pain is predominantly walks. He denies any pain at rest. He denies any redness or swelling or prior history of gout. He denies regular alcohol use. Denies history of similar symptoms in the past. Related Data Home Medications Medication Instructions Recorded Confirmed cholecalciferol (vitamin D3) 125 125 mcg PO DAILY 12/10/20 07/11/23 mcg (5,000 unit) capsule losartan 50 mg tablet 50 mg PO DAILY 12/10/20 07/11/23 metformin 1,000 mg tablet 1,000 mg PO BID 12/10/20 07/11/23 saw palmetto 500 mg capsule 1,000 mg PO DAILY 12/10/20 07/11/23 rivaroxaban 20 mg tablet (Xarelto) 20 mg PO DAILY 09/17/21 07/11/23 melatonin 5 mg capsule 5 mg PO DAILY PRN 01/26/22 07/11/23 rosuvastatin 20 mg tablet 20 mg PO DAILY 01/26/22 07/11/23 finasteride 5 mg tablet 5 mg PO DAILY 12/03/22 07/11/23 glipizide 2.5 mg tablet, extended 2.5 mg PO DAILY 05/17/23 07/11/23 release 24 hr pioglitazone 15 mg tablet 15 mg PO DAILY 05/17/23 07/11/23 trospium 20 mg tablet 20 mg PO DAILY 05/17/23 07/11/23 magnesium oxide 500 mg PO BID #60 tabs 05/20/23 07/11/23 mecobalamin (vitamin B12) 1,000 1,000 mcg sublingual DAILY #30 tabs 05/20/23 07/11/23 mcg disintegrating tablet,sublingual metoprolol succinate 50 mg 25 mg (1/2 x 50 mg) PO DAILY #90 05/20/23 07/11/23 tablet,extended release 24 hr tabs potassium chloride 20 mEq/15 mL 20 meq (15 mL) PO DAILY #450 mL 05/20/23 07/11/23 oral liquid Previous Rx's Medication Instructions Recorded magnesium oxide 500 mg PO BID #60 tabs 05/20/23 mecobalamin (vitamin B12) 1,000 1,000 mcg sublingual DAILY #30 tabs 05/20/23 mcg disintegrating tablet,sublingual metoprolol succinate 50 mg 25 mg (1/2 x 50 mg) PO DAILY #90 05/20/23 tablet,extended release 24 hr tabs potassium chloride 20 mEq/15 mL 20 meq (15 mL) PO DAILY #450 mL 05/20/23 oral liquid Allergies Allergy/AdvReac Type Severity Reaction Status Date / Time lisinopril AdvReac Mild cough Verified 07/11/23 17:01 ibuprofen AdvReac Other (See Verified 07/11/23 17:01 Comment) trazodone AdvReac dry mouth Verified 07/11/23 17:01 General Stated Complaint: Orthopedic TETE: 4 Exam Narrative Exam Narrative: Alert and oriented 77-year-old male sitting comfortably in room, right heel without swelling, tenderness over plantar aspect of heel without redness or visible evidence of infectious process, neurovascularly intact, no tenderness to calf or swelling. No respiratory distress, cardiac rate within normal limits, no bruising to heal, ambulatory with antalgic but steady gait Course Vital Signs Vital signs: Vital Signs Temperature 36.4 C 07/11/23 16:57 Pulse 61 07/11/23 16:57 Respiratory Rate 16 07/11/23 16:57 Blood Pressure 180/76 H 07/11/23 16:57 Pulse Oximetry 97 07/11/23 16:57 Temperature 36.4 C 07/11/23 18:21 Temperature Source Oral 07/11/23 16:57 Pulse 61 07/11/23 18:21 Respiratory Rate 16 07/11/23 18:21 Respiratory Effort Normal 07/11/23 18:21 Blood Pressure 180/76 H 07/11/23 18:21 Blood Pressure Position Sitting 07/11/23 16:57 Pulse Oximetry 97 07/11/23 18:21 Oxygen Delivery Method Room Air 07/11/23 16:57 Oxygen Flow Rate 0 07/11/23 16:57 Pain Level 2 07/11/23 18:21 Medical Decision Making 77-year-old male presenting with right heel pain. X-ray ordered for further evaluation, no indication for blood work based on my clinical exam, low suspicion for gout or infectious symptoms. X-ray shows evidence of significant bone spurs, per radiology interpretation my review referral to podiatry. Boot supplied for comfort. Voltaren gel and Tylenol recommended Return precautions reviewed and patient expressed understanding. Quality:SDOH Health Related Social Needs: No Data to Display PFSH All Active Problems (Updated 07/11/23 @ 18:04 by CECI Lui) Heel pain (Acute) Heel spur (Acute) Acute febrile illness (Acute) Acquired lymphocytopenia (Acute) Weakness (Acute) Pancytopenia (Acute) Acute UTI (Acute) Weakness (Acute) Coronary artery disease (Chronic) 12/18/21 pt [place]CA w [place] [facility] [place] Abnormal nuclear stress test (Acute) Paroxysmal atrial flutter (Acute) Trochanteric bursitis, right hip (Acute) Pes anserinus bursitis of left knee (Acute) Osteoarthritis of left knee (Acute) Steroid injection: 12/16/2020 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) Insomnia (Acute) Presbycusis of both ears (Acute) BRAXTON (obstructive sleep apnea) (Chronic) Morbid obesity (Acute) Hypercholesterolemia (Acute) Primary hypertension (Acute) Benign prostatic hyperplasia with urinary frequency (Acute) Medical History Atrial flutter Kidney stone Social History Smoking/Tobacco Use Status: Former Tobacco Use Smoking risk assessment performed?: Yes Alcohol Intake: former Drug use: Never Substance use type: does not use Housing: house Do you feel safe at home: Yes Do you feel safe in your relationship?: Yes
== END 2023-07-11 18:21 | disposition home or self-care (01) ==
PROVIDERS: Emergency Provider Physician Assistant; PCP Internal Medicine
DX: M79.671 Pain in right foot (principal); M77.31 Calcaneal spur, right foot; I10 Essential (primary) hypertension; I25.10 Atherosclerotic heart disease of native coronary artery without angina pectoris; E11.9 Type 2 diabetes mellitus without complications; I48.0 Paroxysmal atrial fibrillation; Z95.5 Presence of coronary angioplasty implant and graft; Z79.84 Long term (current) use of oral hypoglycemic drugs; Z79.01 Long term (current) use of anticoagulants; Z87.891 Personal history of nicotine dependence
CPT/HCPCS: 99283; 73630

== ENCOUNTER → 2023-07-13 10:45 | Outpatient (BNVA) | payer MEDICARE, BC, SELFPAY | PROVIDERS: PCP Internal Medicine; Referring Provider Internal Medicine; Visit Provider Podiatrist | DX: M65.261 Calcific tendinitis, right lower leg (principal); M76.62 Achilles tendinitis, left leg; M67.01 Short Achilles tendon (acquired), right ankle; M79.671 Pain in right foot; M79.672 Pain in left foot | CPT/HCPCS: 99214 ==

== ENCOUNTER → 2023-08-03 11:08 | Outpatient (BNVA) | payer MEDICARE, BC, SELFPAY | PROVIDERS: PCP Internal Medicine; Referring Provider Internal Medicine; Visit Provider Podiatrist | DX: M76.62 Achilles tendinitis, left leg (principal); M76.61 Achilles tendinitis, right leg; M67.01 Short Achilles tendon (acquired), right ankle | CPT/HCPCS: 99213 ==

== ENCOUNTER 2023-08-09 10:22 | Emergency (ER) | payer MEDICARE, BC, SELFPAY ==
[2023-08-09 10:28] VITALS: BP 148/56; PULSE 50; RESP 20; TEMP 36.2; O2SAT 98
[2023-08-09] MEDS: Ketorolac 10 MG TAB PO (11:15)
[2023-08-09] MEDS: Acetaminophen 500 MG TAB 1000 MG PO (11:16)
--- NOTE | 2023-08-09 11:43 | DI.RAD_ITS ---
Exam(s) XR HIP PELVIS ADULT BL EXAM: XR HIP PELVIS ADULT BL CLINICAL HISTORY: hip pain. TECHNIQUE: 2D digital imaging was performed. COMPARISON: No exams were available for comparison FINDINGS: 3 views No evidence of pelvic nor hip fractures. Minimal degenerative changes in the hips. No osseous lesio ns. Bone density normal. IMPRESSION: No acute osseous findings in the pelvis and hips. DATA REPOSITORY: RADIATION DOSE DELIVERED:
--- NOTE | 2023-08-09 14:33 | ED.GENADUL_ITS ---
Discharge Plan Disposition Patient Disposition: Home Discharge Details Clinical Impression: Right hip pain Primary Care Provider: Sadi Rogers ED Provider: Nazia Lema Home Meds and New Rx's Prescriptions: No Action cholecalciferol (vitamin D3) 125 mcg (5,000 unit) capsule 125 mcg PO DAILY losartan 50 mg tablet 50 mg PO DAILY metformin 1,000 mg tablet 1,000 mg PO BID saw palmetto 500 mg capsule 1,000 mg PO DAILY Rx Instructions: give with food (meal/snack) rosuvastatin 20 mg tablet 20 mg PO DAILY melatonin 5 mg capsule 5 mg PO DAILY PRN finasteride 5 mg tablet 5 mg PO DAILY Xarelto 20 mg tablet 20 mg PO DAILY Rx Instructions: must administer with evening meal glipizide 2.5 mg tablet extended release 24hr 2.5 mg PO DAILY pioglitazone 15 mg tablet 15 mg PO DAILY trospium 20 mg tablet 20 mg PO DAILY potassium chloride 20 mEq/15 mL liquid 20 meq PO DAILY Qty: 450 0RF magnesium oxide 500 mg magnesium tablet 500 mg PO BID Qty: 60 0RF mecobalamin (vitamin B12) 1,000 mcg tablet,disintegrating 1,000 mcg sublingual DAILY Qty: 30 0RF Rx Instructions: place tablet under tongue and allow to dissolve for at least30 secs before swallowing metoprolol succinate 50 mg tablet extended release 24 hr 25 mg PO DAILY Qty: 90 3RF Discharge Instructions Instructions: Hip Pain ED Additional Instructions: * Please follow-up with orthopedics for ongoing right hip pain. A referral has been placed * Continue to use your cane to assist with ambulation * You can take 1 g of Tylenol every 4-6 hours, not to exceed 4 g within 1 day * given your cardiac history is best to avoid NSAIDs. You can follow-up with your PCP for further pain management. Discharge Data Discharge Date/Time-TO BE ENTERED AT DEPARTURE: 08/09/23 12:08 HPI General Date/Time Provider Initiated Documentation: 08/09/23 10:35 . Limitations to Documentation: no limitations . Information obtained by: patient . HPI Narrative: 77-year-old gentleman with past medical history of obesity, CAD A-fib, diabetes presents for evaluation of acute worsening of longstanding right hip pain. He reports that since having a recent Achilles injury, he has been having gait difficulty which is now resulted in hip pain. Reports hip pain on the outside of his right hip, worse when he goes from sitting to the standing position. He states that once he is up and moving around he feels better. He is occasionally taking Tylenol, but otherwise has not taken any medication today. Related Data Home Medications Medication Instructions Recorded Confirmed cholecalciferol (vitamin D3) 125 125 mcg PO DAILY 12/10/20 08/03/23 mcg (5,000 unit) capsule losartan 50 mg tablet 50 mg PO DAILY 12/10/20 08/03/23 metformin 1,000 mg tablet 1,000 mg PO BID 12/10/20 08/03/23 saw palmetto 500 mg capsule 1,000 mg PO DAILY 12/10/20 08/03/23 rivaroxaban 20 mg tablet (Xarelto) 20 mg PO DAILY 09/17/21 08/03/23 melatonin 5 mg capsule 5 mg PO DAILY PRN 01/26/22 08/03/23 rosuvastatin 20 mg tablet 20 mg PO DAILY 01/26/22 08/03/23 finasteride 5 mg tablet 5 mg PO DAILY 12/03/22 08/03/23 glipizide 2.5 mg tablet, extended 2.5 mg PO DAILY 05/17/23 08/03/23 release 24 hr pioglitazone 15 mg tablet 15 mg PO DAILY 05/17/23 08/03/23 trospium 20 mg tablet 20 mg PO DAILY 05/17/23 08/03/23 magnesium oxide 500 mg PO BID #60 tabs 05/20/23 08/03/23 mecobalamin (vitamin B12) 1,000 1,000 mcg sublingual DAILY #30 tabs 05/20/23 08/03/23 mcg disintegrating tablet,sublingual metoprolol succinate 50 mg 25 mg (1/2 x 50 mg) PO DAILY #90 05/20/23 08/03/23 tablet,extended release 24 hr tabs potassium chloride 20 mEq/15 mL 20 meq (15 mL) PO DAILY #450 mL 05/20/23 08/03/23 oral liquid Previous Rx's Medication Instructions Recorded magnesium oxide 500 mg PO BID #60 tabs 05/20/23 mecobalamin (vitamin B12) 1,000 1,000 mcg sublingual DAILY #30 tabs 05/20/23 mcg disintegrating tablet,sublingual metoprolol succinate 50 mg 25 mg (1/2 x 50 mg) PO DAILY #90 05/20/23 tablet,extended release 24 hr tabs potassium chloride 20 mEq/15 mL 20 meq (15 mL) PO DAILY #450 mL 05/20/23 oral liquid Allergies Allergy/AdvReac Type Severity Reaction Status Date / Time lisinopril AdvReac Mild cough Verified 07/11/23 17:01 ibuprofen AdvReac Other (See Verified 07/11/23 17:01 Comment) trazodone AdvReac dry mouth Verified 07/11/23 17:01 General Stated Complaint: Orthopedic TETE: 4 Exam Narrative Exam Narrative: Review of Systems: All systems reviewed & are unremarkable except as noted in HPI and below Obese, no acute distress NCAT PERRL, normal conjunctiva RRR Unlabored respiratory effort Nondistended abdomen Extremities w/o deformity, no cyanosis, no edema no significant hip tenderness, full range of motion appreciated No rashes or lesions. no focal neurologic deficits Appropriate mood and affect Course Vital Signs Vital signs: Vital Signs Temperature 36.2 C L 08/09/23 10:28 Pulse 50 L 08/09/23 10:28 Respiratory Rate 20 08/09/23 10:28 Blood Pressure 148/56 H 08/09/23 10:28 Pulse Oximetry 98 08/09/23 10:28 Temperature 36.2 C L 08/09/23 10:28 Temperature Source Temporal Artery Scan 08/09/23 10:28 Pulse 50 L 08/09/23 10:28 Respiratory Rate 20 08/09/23 10:28 Respiratory Effort Normal, Non-Labored 08/09/23 12:08 Blood Pressure 148/56 H 08/09/23 10:28 Pulse Oximetry 98 08/09/23 10:28 Oxygen Delivery Method Room Air 08/09/23 10:28 Oxygen Flow Rate 0 08/09/23 10:28 Pain Level 3 08/09/23 11:16 Medical Decision Making Emergent evaluation of right hip pain. No trauma. Has had this previously. Initial differential includes arthritis, bursitis, less likely infectious etiology. X-ray obtained and there is no evidence of acute bony injury. Recommended scheduled Tylenol. Recommend physical therapy and follow-up with PCP or orthopedics to be evaluated for possible surgical intervention on ongoing hip pain. Medical Records Medical records reviewed: Yes I reviewed the patient's medical records. Quality:SDOH Health Related Social Needs: No Data to Display PFSH All Active Problems Right hip pain (Acute) Achilles tendon contracture, right (Acute) Calcific Achilles tendinitis of right lower extremity (Acute) Insertional tendinopathy of right Achilles tendon (Acute) Achilles tendinitis of left lower extremity (Acute) Heel pain (Acute) Heel spur (Acute) Acute febrile illness (Acute) Acquired lymphocytopenia (Acute) Weakness (Acute) Pancytopenia (Acute) Acute UTI (Acute) Weakness (Acute) Coronary artery disease (Chronic) 12/18/21 pt had PTCA w stent [facility] LAD at [facility] Abnormal nuclear stress test (Acute) Paroxysmal atrial flutter (Acute) Trochanteric bursitis, right hip (Acute) Pes anserinus bursitis of left knee (Acute) Osteoarthritis of left knee (Acute) Steroid injection: 12/16/2020 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) Insomnia (Acute) Presbycusis of both ears (Acute) BRAXTON (obstructive sleep apnea) (Chronic) Morbid obesity (Acute) Hypercholesterolemia (Acute) Primary hypertension (Acute) Benign prostatic hyperplasia with urinary frequency (Acute) Medical History Atrial flutter Kidney stone Social History Smoking/Tobacco Use Status: Former Tobacco Use Smoking risk assessment performed?: Yes Alcohol Intake: former Drug use: Never Substance use type: does not use Housing: house Do you feel safe at home: Yes Do you feel safe in your relationship?: Yes
== END 2023-08-09 12:08 | disposition home or self-care (01) ==
PROVIDERS: Emergency Provider Emergency Medicine; PCP Internal Medicine
DX: M25.551 Pain in right hip (principal)
CPT/HCPCS: 73521; 99283

== ENCOUNTER 2023-08-10 14:34 | Emergency (ER) | payer MEDICARE, BC, SELFPAY ==
[2023-08-10 14:42] VITALS: BP 152/56; PULSE 51; RESP 18; TEMP 36.6; O2SAT 99
--- NOTE | 2023-08-10 15:36 | ED.GENADUL_ITS ---
Discharge Plan Disposition Patient Disposition: Home Condition: Stable Discharge Details Clinical Impression: Right hip pain Primary Care Provider: Sadi Rogers ED Provider: Paulie Cuevas Home Meds and New Rx's Prescriptions: New diclofenac sodium 1 % gel 2 g topical QID Qty: 100 0RF Rx Instructions: apply to single elbow, wrist or hand; for hand includes palm/fingers/back of hand Continued cholecalciferol (vitamin D3) 125 mcg (5,000 unit) capsule 125 mcg PO DAILY losartan 50 mg tablet 50 mg PO DAILY metformin 1,000 mg tablet 1,000 mg PO BID saw palmetto 500 mg capsule 1,000 mg PO DAILY Rx Instructions: give with food (meal/snack) rosuvastatin 20 mg tablet 20 mg PO DAILY melatonin 5 mg capsule 5 mg PO DAILY PRN finasteride 5 mg tablet 5 mg PO DAILY Xarelto 20 mg tablet 20 mg PO DAILY Rx Instructions: must administer with evening meal glipizide 2.5 mg tablet extended release 24hr 2.5 mg PO DAILY pioglitazone 15 mg tablet 15 mg PO DAILY trospium 20 mg tablet 20 mg PO DAILY potassium chloride 20 mEq/15 mL liquid 20 meq PO DAILY Qty: 450 0RF magnesium oxide 500 mg magnesium tablet 500 mg PO BID Qty: 60 0RF mecobalamin (vitamin B12) 1,000 mcg tablet,disintegrating 1,000 mcg sublingual DAILY Qty: 30 0RF Rx Instructions: place tablet under tongue and allow to dissolve for at least30 secs before swallowing metoprolol succinate 50 mg tablet extended release 24 hr 25 mg PO DAILY Qty: 90 3RF Discharge Instructions Instructions: Diclofenac (Topical), Opioids for Short-Term Treatment of Pain ED, Hip Pain ED Additional Instructions: You were seen in the emergency department for your acute on chronic right hip pain. You likely have arthritis and need to pursue either steroid injections to the joint or joint replacement, physical therapy will improve your symptoms overall while you are awaiting specialized orthopedic care. Please follow-up with the previous PT referral you were given. I have sent a prescription for topical diclofenac gel which is a topical anti-inflammatory to apply to your hip 4 times per day as needed. Please rest, ice the hip, gentle compression with ice will be effective in reducing pain. Please take 650 mg of Tylenol every 6 hours for pain as well. Follow-up with orthopaedics, return to ED for any sign of neurovascular compromise of R lower extremity. Referrals: [facility] [Provider Group] Sadi Rogers [Primary Care Provider] - Discharge Data Discharge Date/Time-TO BE ENTERED AT DEPARTURE: 08/10/23 17:47 HPI General Date/Time Provider Initiated Documentation: 08/10/23 14:38 . HPI Narrative: 77 year-old male presents to ED today by POV/ambulating with his with a chief complaint of R hip pain, seen here last night with negative XR's, has been bothering him for a while, denies trauma. Quality described as soreness especially when getting up from rest- improves when he's up and about, no radiation to fever, numbness, tingling, gross swelling, inability to ambulate. Severity is described as severe. Palliating factors include nothing specific. Provoking factors include nothing specific- 1000mg APAP q6hr not helping. Events leading up to the incident/Associated Symptoms: Patient is interested in possible hip replacement. Patient not anticoagulated. Related Data Home Medications Medication Instructions Recorded Confirmed cholecalciferol (vitamin D3) 125 125 mcg PO DAILY 12/10/20 08/03/23 mcg (5,000 unit) capsule losartan 50 mg tablet 50 mg PO DAILY 12/10/20 08/03/23 metformin 1,000 mg tablet 1,000 mg PO BID 12/10/20 08/03/23 saw palmetto 500 mg capsule 1,000 mg PO DAILY 12/10/20 08/03/23 rivaroxaban 20 mg tablet (Xarelto) 20 mg PO DAILY 09/17/21 08/03/23 melatonin 5 mg capsule 5 mg PO DAILY PRN 01/26/22 08/03/23 rosuvastatin 20 mg tablet 20 mg PO DAILY 01/26/22 08/03/23 finasteride 5 mg tablet 5 mg PO DAILY 12/03/22 08/03/23 glipizide 2.5 mg tablet, extended 2.5 mg PO DAILY 05/17/23 08/03/23 release 24 hr pioglitazone 15 mg tablet 15 mg PO DAILY 05/17/23 08/03/23 trospium 20 mg tablet 20 mg PO DAILY 05/17/23 08/03/23 magnesium oxide 500 mg PO BID #60 tabs 05/20/23 08/03/23 mecobalamin (vitamin B12) 1,000 1,000 mcg sublingual DAILY #30 tabs 05/20/23 08/03/23 mcg disintegrating tablet,sublingual metoprolol succinate 50 mg 25 mg (1/2 x 50 mg) PO DAILY #90 05/20/23 08/03/23 tablet,extended release 24 hr tabs potassium chloride 20 mEq/15 mL 20 meq (15 mL) PO DAILY #450 mL 05/20/23 08/03/23 oral liquid diclofenac sodium 1 % topical gel 2 g topical QID #100 grams 08/10/23 Previous Rx's Medication Instructions Recorded magnesium oxide 500 mg PO BID #60 tabs 05/20/23 mecobalamin (vitamin B12) 1,000 1,000 mcg sublingual DAILY #30 tabs 05/20/23 mcg disintegrating tablet,sublingual metoprolol succinate 50 mg 25 mg (1/2 x 50 mg) PO DAILY #90 05/20/23 tablet,extended release 24 hr tabs potassium chloride 20 mEq/15 mL 20 meq (15 mL) PO DAILY #450 mL 05/20/23 oral liquid diclofenac sodium 1 % topical gel 2 g topical QID #100 grams 08/10/23 Allergies Allergy/AdvReac Type Severity Reaction Status Date / Time lisinopril AdvReac Mild cough Verified 08/10/23 14:45 ibuprofen AdvReac Other (See Verified 08/10/23 14:45 Comment) trazodone AdvReac dry mouth Verified 08/10/23 14:45 General Stated Complaint: Orthopedic TETE: 4 Review of Systems All systems reviewed & are unremarkable except as noted in HPI and below Exam Narrative Exam Narrative: GENERAL APPEARANCE: Baseline obesity, non-toxic, awake and alert, atraumatic, no acute distress. SKIN: Warm, pink, dry, intact, without rashes/lesions/ulcerations. HEAD: Normocephalic, atraumatic, normal hair distribution for gender/age. EYES: Pupils PERRLA, EOMs intact without nystagmus, normal conjunctiva, no exudates on lids/lashes. ENT: Nares patent, no circumoral cyanosis, no facial swelling NECK: Supple, trachea midline, painless cervical ROM. LUNGS/CHEST: Non-labored respirations, normal A/P diameter, symmetrical expansion, no chest wall deformity HEART (CV/PV): Regular rate, R dorsalis pedis pulse intact, no peripheral edema, no JVD. ABDOMEN: Soft, non-distended, no guarding. MSK: Normal ROM, no swelling/deformity to bilateral UEs or LEs, moving all extremities without weakness, no cyanosis, spine midline without tenderness, normal curvature. R HIP: Mild tenderness to the right hip without crepitus, able to SLR with pain, no focal swelling or deformity, no internal or external rotation, grossly N/V intact distally NEURO: Mental Status AAOx4 - alert to person, place, time, events No facial droop, no forehead involvement. Motor: No focal weakness - strength 5/5 in bilateral UEs and LEs, proximal and distal, symmetric. Sensory: sensation intact to light touch globally. Gait normal: patient ambulated without ataxia into ED room, using cane at baseline PSYCH: euthymic, cooperative, pleasant, appropriate speech Course Vital Signs Vital signs: Vital Signs Temperature 36.6 C 08/10/23 14:42 Pulse 51 L 08/10/23 14:42 Respiratory Rate 18 08/10/23 14:42 Blood Pressure 152/56 H 08/10/23 14:42 Pulse Oximetry 99 08/10/23 14:42 Temperature 36.6 C 08/10/23 14:42 Pulse 51 L 08/10/23 14:42 Respiratory Rate 18 08/10/23 14:42 Blood Pressure 152/56 H 08/10/23 14:42 Pulse Oximetry 99 08/10/23 14:42 Oxygen Delivery Method Room Air 08/10/23 14:42 Oxygen Flow Rate 0 08/10/23 14:42 Medical Decision Making This dictation utilizes [id number] dictation software and may contain unedited grammatical errors. 77 year-old male presents to ED today by POV/ambulating with his with a chief complaint of R hip pain, seen here last night with negative XR's, has been bothering him for a while, denies trauma. Quality described as soreness especially when getting up from rest- improves when he's up and about, no radiation to fever, numbness, tingling, gross swelling, inability to ambulate. Severity is described as severe. Palliating factors include nothing specific. Provoking factors include nothing specific- 1000mg APAP q6hr not helping. Events leading up to the incident/Associated Symptoms: Patient is interested in possible hip replacement. Patients' medical history: Atrial flutter, history of kidney stones, chronic orthopedic issues of multiple joints, T2DM, BRAXTON, morbid obesity, hypercholesterolemia, hypertension. Family and social history: no exercise regimen. Pertinent exam findings / vital signs include R HIP: Mild tenderness to the right hip without crepitus, able to SLR with pain, no focal swelling or deformity, no internal or external rotation, grossly N/V intact distally. Differential / pathologies of concern include arthritis, not fracture, labral tear, bursitis. Diagnostic studies of: -CT R Hip - XR had been performed at yesterday's visit. Interventions of: -counseled on analgesia overall- patient wanted better pain control but didn't want opiates long-term, counseled that unfortunately there are not a lot of other analgesics that exist. Rx'd topical Voltaren, recommend PT for best pain relief, patient skeptical of utility of physical therapy. ED Course/Assessment/Plan: 77-year-old male presents with arthritic right hip pain, has degenerative changes to both hips on CT, is open to discussion of hip replacement with orthopedics. Here for pain control as Tylenol 4 times daily did not help despite yesterday's ED visit. Spent considerable time of the visit performing patient education on overall analgesia and strategies to reduce arthritis pain including physical therapy, provided topical Voltaren as the patient cannot take p.o. NSAIDs due to Xarelto use. I did provide him with a short to go pack of opiate pain relief, 4 tabs encouraged him to cut them in half for severe breakthrough pain but that this would not likely get better, counseled that he may need to follow-up for referral to specialized steroid injections of the hip joint, strict return criteria for signs of neurovascular compromise or new trauma. Findings not consistent with inability to ambulate, fracture, neurovascular compromise of the right lower extremity. Disposition of Right Hip Pain. Patient verbalized understanding of the plan and return to ED criteria and engaged in shared decision making. Medical Records Medical records reviewed: Yes I reviewed the patient's medical records. Imaging Data Radiologic Study: Attestation: I personally reviewed and interpreted this imaging study as follows: Imaging: CT Scan Radiologist's impression: EXAM: CT PELVIC WO CLINICAL HISTORY: R hip pain. TECHNIQUE: Imaging Protocol: Axial computed tomography images with coronal and sagittal reformatted images were created and reviewed. COMPARISON: CT CT CHEST/ABD/PEL W from 05/17/2023 FINDINGS: Bones: The osseous structures and articular surfaces are intact. There has been no change in appearance of the right inferior pubic ramus compared to the prior examination. Bony alignment is satisfactory. No cellulitic or osteomye litic changes are identified. There are degenerative changes seen in the hips bilaterally. There are degenerative changes seen in the lower visualized lumbar spine. No lytic or sclerotic lesions are identified. Soft Tissues: There are diverticular changes seen in the sigmoid colon but no evidence of acute diverticulitis. The prostate gland is enlarged. Atherosclerotic calcifications are present. IMPRESSION: No acute fracture or dislocation. Quality:SDOH Health Related Social Needs: No Data to Display PFSH All Active Problems (Updated 08/11/23 @ 00:05 by GUERRERO BOND) Right hip pain (Acute) Right hip pain (Acute) Achilles tendon contracture, right (Acute) Calcific Achilles tendinitis of right lower extremity (Acute) Insertional tendinopathy of right Achilles tendon (Acute) Achilles tendinitis of left lower extremity (Acute) Acute febrile illness (Acute) Acquired lymphocytopenia (Acute) Weakness (Acute) Pancytopenia (Acute) Acute UTI (Acute) Weakness (Acute) Coronary artery disease (Chronic) 12/18/21 pt had PTCA w stent to LAD at [facility] Abnormal nuclear stress test (Acute) Paroxysmal atrial flutter (Acute) Trochanteric bursitis, right hip (Acute) Pes anserinus bursitis of left knee (Acute) Osteoarthritis of left knee (Acute) Steroid injection: 12/16/2020 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) Insomnia (Acute) Presbycusis of both ears (Acute) BRAXTON (obstructive sleep apnea) (Chronic) Morbid obesity (Acute) Hypercholesterolemia (Acute) Primary hypertension (Acute) Benign prostatic hyperplasia with urinary frequency (Acute) Medical History Atrial flutter Kidney stone Social History Smoking/Tobacco Use Status: Former Tobacco Use Smoking risk assessment performed?: Yes Alcohol Intake: former Drug use: Never Substance use type: does not use Housing: house Do you feel safe at home: Yes Do you feel safe in your relationship?: Yes
--- NOTE | 2023-08-10 16:35 | DI.CT_ITS ---
Exam(s) CT PELVIC WO EXAM: CT PELVIC WO CLINICAL HISTORY: R hip pain. TECHNIQUE: Imaging Protocol: Axial computed tomography images with coronal and sagittal reformatted images were created and reviewed. COMPARISON: CT CT CHEST/ABD/PEL W from 05/17/2023 FINDINGS: Bones: The osseous structures and articular surfaces are intact. There has been no change in appear ance of the right inferior pubic ramus compared to the prior examination. Bony alignment is satisfac tory. No cellulitic or osteomyelitic changes are identified. There are degenerative changes seen in the hips bilaterally. There are degenerative changes seen in the lower visualized lumbar spine. No lytic or sclerotic lesions are identified. Soft Tissues: There are diverticular changes seen in the sigmoid colon but no evidence of acute diver ticulitis. The prostate gland is enlarged. Atherosclerotic calcifications are present. IMPRESSION: No acute fracture or dislocation. RADIATION DOSE DELIVERED: 757.73mGy.cm Total DLP 757.73mGy.cmTotal DLP 757.73mGy.cmTotal DLP DATA REPOSITORY: All CT scans at this facility are submitted to the National Radiology Data Registry (NRDR) Dose Index Registry (DIR) with the [employer] ([employer]). RADIATION OPTIMIZATION: All CT scans at this facility use at least one of these dose optimization te chniques: automated exposure control; mA and/or kV adjustment per patient size (includes targeted exa ms where dose is matched to clinical indication); or iterative reconstruction.
== END 2023-08-10 17:47 | disposition home or self-care (01) ==
PROVIDERS: Emergency Provider Physician Assistant; PCP Internal Medicine
DX: M25.551 Pain in right hip (principal)
CPT/HCPCS: 99284; 72192; 99283

== ENCOUNTER → 2023-09-02 10:49 | Outpatient (BNVA) | payer MEDICARE, BC, SELFPAY | PROVIDERS: PCP Internal Medicine; Visit Provider Internal Medicine Cardiovascular Disease | DX: I25.10 Atherosclerotic heart disease of native coronary artery without angina pectoris (principal); I48.92 Unspecified atrial flutter | CPT/HCPCS: 99213 ==

== ENCOUNTER 2023-11-26 10:00 | Emergency (ER) | payer MEDICARE, BC, SELFPAY ==
[2023-11-26 10:02] VITALS: BP 202/77; PULSE 68; RESP 16; TEMP 36.2
--- NOTE | 2023-11-26 10:37 | ED.GENADUL_ITS ---
Discharge Plan Disposition Patient Disposition: Home Condition: Good Discharge Details Clinical Impression: Chronic left hip pain Primary Care Provider: Sadi Rogers ED Provider: Paulie Diallo Home Meds and New Rx's Prescriptions: No Action cholecalciferol (vitamin D3) 125 mcg (5,000 unit) capsule 125 mcg PO DAILY losartan 50 mg tablet 50 mg PO DAILY metformin 1,000 mg tablet 1,000 mg PO BID saw palmetto 500 mg capsule 1,000 mg PO DAILY Rx Instructions: give with food (meal/snack) rosuvastatin 20 mg tablet 20 mg PO DAILY melatonin 5 mg capsule 5 mg PO DAILY PRN finasteride 5 mg tablet 5 mg PO DAILY Xarelto 20 mg tablet 20 mg PO DAILY Rx Instructions: must administer with evening meal metoprolol succinate 50 mg tablet extended release 24 hr 25 mg PO DAILY Qty: 90 3RF glipizide 2.5 mg tablet extended release 24hr 2.5 mg PO DAILY pioglitazone 15 mg tablet 15 mg PO DAILY trospium 20 mg tablet 20 mg PO DAILY potassium chloride 20 mEq/15 mL liquid 20 meq PO DAILY Qty: 450 0RF magnesium oxide 500 mg magnesium tablet 500 mg PO BID Qty: 60 0RF diclofenac sodium 1 % gel 2 g topical QID Qty: 100 0RF Rx Instructions: apply to single elbow, wrist or hand; for hand includes palm/fingers/back of hand Discharge Instructions Instructions: Hip Pain ED Additional Instructions: At this time the CT imaging and the x-ray you had did not demonstrate any emergent components. Please continue your physical therapy exercises that you were doing. Please continue to take Tylenol, 1000 mg every 6 hours for the next few days to help with the pain. Please continue to rub the Voltaren gel on the affected hip every 6 hours for pain. We have placed a referral with orthopedics for follow-up for discussion of potential hip surgeries/injections/replacements. If you notice any worsening of your symptoms, or any new symptoms such as vomiting, diarrhea, fever, chills, shortness of breath, chest pain, numbness, weakness, or fainting , please return immediately to the emergency department for reevaluation. Please follow up with your primary care provider as soon as possible for reassessment and reevaluation. As always, it was a pleasure participating in your medical care today. Referrals: Wade Acevedo MD [ [facility] STAFF PHYSICIAN] - Sadi Rogers [Primary Care Provider] - Discharge Data Discharge Date/Time-TO BE ENTERED AT DEPARTURE: 11/26/23 10:52 HPI General Date/Time Provider Initiated Documentation: 11/26/23 10:00 . HPI Narrative: This is a pleasant 78-year-old male with past medical history of atrial flutter, on rivaroxaban, kidney stones, who presents today for left hip pain. Patient was seen and assessed about 1 month ago with the onset of nontraumatic left hip pain. X-ray was negative, CT scan showed arthritis but no other acute process. Patient was referred to physical therapy and diclofenac gel use at home. Patient had improvement of his pain with physical therapy and diclofenac. Unfortunately he has run out of diclofenac, and he stopped doing his exercises and then his pain seemed to come back about 3 to 4 days ago. He denies any numbness tingling weakness. He denies any new falls or trauma. He denies any other complaints. He does not have any orthopedic referral. No other modifying factors. Pain is worst when he sits up or stands up going from a flexed to extended position. Pain is only mild with ambulation. He denies any other modifying factors. Related Data Home Medications ?Medication ?Instructions ?Recorded ?Confirmed cholecalciferol (vitamin D3) 125 125 mcg PO DAILY 12/10/20 11/26/23 mcg (5,000 unit) capsule losartan 50 mg tablet 50 mg PO DAILY 12/10/20 11/26/23 metformin 1,000 mg tablet 1,000 mg PO BID 12/10/20 11/26/23 saw palmetto 500 mg capsule 1,000 mg PO DAILY 12/10/20 11/26/23 rivaroxaban 20 mg tablet (Xarelto) 20 mg PO DAILY 09/17/21 11/26/23 melatonin 5 mg capsule 5 mg PO DAILY PRN 01/26/22 11/26/23 rosuvastatin 20 mg tablet 20 mg PO DAILY 01/26/22 11/26/23 finasteride 5 mg tablet 5 mg PO DAILY 12/03/22 11/26/23 glipizide 2.5 mg tablet, extended 2.5 mg PO DAILY 05/17/23 11/26/23 release 24 hr pioglitazone 15 mg tablet 15 mg PO DAILY 05/17/23 11/26/23 trospium 20 mg tablet 20 mg PO DAILY 05/17/23 11/26/23 magnesium oxide 500 mg PO BID #60 tabs 05/20/23 11/26/23 potassium chloride 20 mEq/15 mL 20 meq (15 mL) PO DAILY #450 mL 05/20/23 11/26/23 oral liquid diclofenac sodium 1 % topical gel 2 g topical QID #100 grams 08/10/23 11/26/23 metoprolol succinate 50 mg 25 mg (1/2 x 50 mg) PO DAILY #90 11/11/23 11/26/23 tablet,extended release 24 hr tabs Previous Rx's ?Medication ?Instructions ?Recorded magnesium oxide 500 mg PO BID #60 tabs 05/20/23 potassium chloride 20 mEq/15 mL 20 meq (15 mL) PO DAILY #450 mL 05/20/23 oral liquid diclofenac sodium 1 % topical gel 2 g topical QID #100 grams 08/10/23 metoprolol succinate 50 mg 25 mg (1/2 x 50 mg) PO DAILY #90 11/11/23 tablet,extended release 24 hr tabs Allergies Allergy/AdvReac Type Severity Reaction Status Date / Time lisinopril AdvReac Mild cough Verified 11/26/23 10:29 ibuprofen AdvReac Other (See Verified 11/26/23 10:29 Comment) trazodone AdvReac dry mouth Verified 11/26/23 10:29 General Stated Complaint: Orthopedic TETE: 3 Review of Systems All systems reviewed & are unremarkable except as noted in HPI and below Exam Narrative Exam Narrative: 1.Const: Well-nourished, Well-developed, appearing stated age 2.Eyes: PERRL, no conjunctival injection, and symmetrical lids. 3.ENT: Atraumatic external nose and ears. Moist MM. Neck: Symmetric, trachea midline, No thyromegaly. 4.CVS: +S1/S2, Peripheral pulses 2+ and equal in all extremities. Brisk capillary refill in all extremities. 5.RESP: Unlabored respiratory effort. Clear to auscultation bilaterally. No wheezes rales or rhonchi 6.GI: Soft, Nontender/Nondistended, No hepatosplenomegaly. No guarding or rebound. 7.MSK: Normocephalic/Atraumatic, Extremities w/o deformity or ttp No cyanosis or clubbing, Normal movement of all extremities. Patient has mild pain with external and internal rotation of the left hip. No focal tenderness over the greater trochanter on palpation. No crepitus. No redness or bruising. 8.Skin: Warm, Dry. No rashes or lesions. 9.Neuro: program manager slp II-XII grossly intact. Sensation grossly intact, no focal neurologic deficits. 10.Psych: (AAO) x3. Appropriate mood and affect Course Vital Signs Vital signs: Vital Signs Temperature 36.2 C L 11/26/23 10:02 Pulse 68 11/26/23 10:02 Respiratory Rate 16 11/26/23 10:02 Blood Pressure 202/77 H 11/26/23 10:02 Temperature 36.2 C L 11/26/23 10:02 Temperature Source Oral 11/26/23 10:02 Pulse 68 11/26/23 10:02 Respiratory Rate 16 11/26/23 10:02 Respiratory Effort Normal, Non-Labored 11/26/23 10:25 Blood Pressure 202/77 H 11/26/23 10:02 Pain Level 3 11/26/23 10:02 Medical Decision Making This is a pleasant 78-year-old male with past medical history of atri al flutter, on rivaroxaban, kidney stones, who presents today for left hip pain. Patient was seen and assessed about 1 month ago with the onset of nontraumatic left hip pain. X-ray was negative, CT scan showed arthritis but no other acute process. Patient was referred to physical therapy and diclofenac gel use at home. Patient had improvement of his pain with physical therapy and diclofenac. Unfortunately he has run out of diclofenac, and he stopped doing his exercises and then his pain seemed to come back about 3 to 4 days ago. He denies any numbness tingling weakness. He denies any new falls or trauma. He denies any other complaints. He does not have any orthopedic referral. No other modifying factors. Pain is worst when he sits up or stands up going from a flexed to extended position. Pain is only mild with ambulation. He denies any other modifying factors. Physical exam demonstrates a reassuring male, no crepitus for the hip with external and internal rotation but he does have some mild pain. Worst pain is noted when he sits up or stands up. Mild limp with ambulation as well. With the previous imaging that was done, and no new trauma I do not see an indication for repeat emergent imaging at this time. I do feel that the neck step would be orthopedic evaluation, continued PT exercising, and continue diclofenac administration. No indication for emergent MRI at this time, however we will defer to orthopedics recommendation on a nonemergent outpatient basis for potential need for additional imaging. We will give Voltaren gel here, patient will restart his exercises, and we will place a referral for orthopedics for further discussion of potential surgical interventions if indicated. No evidence to suggest septic joint, no fever or redness. No swelling in the leg to suggest blood clot or DVT. No new trauma to suggest fracture. I have extensively reviewed the treatment plan and discharge instructions with the patient and their family. I have addressed all patient concerns at this time. The patient and family was made aware of what symptoms to monitor for that would warrant a return to the emergency department. Discussed the plan with the pat ient and family, they demonstrate verbal understanding and agreement with our assessment and plan at this time. The documentation in this chart was dictated using [employer] dictation software. Please excuse any dictation errors. Quality:SDOH Health Related Social Needs: No Data to Display PFSH All Active Problems Chronic left hip pain (Acute) Achilles tendon contracture, right (Acute) Calcific Achilles tendinitis of right lower extremity (Acute) Insertional tendinopathy of right Achilles tendon (Acute) Achilles tendinitis of left lower extremity (Acute) Acute febrile illness (Acute) Acquired lymphocytopenia (Acute) Weakness (Acute) Pancytopenia (Acute) Acute UTI (Acute) Weakness (Acute) Coronary artery disease (Chronic) 12/18/21 pt had PTCA w stent to LAD at [facility] Abnormal nuclear stress test (Acute) Paroxysmal atrial flutter (Acute) Trochanteric bursitis, right hip (Acute) Pes anserinus bursitis of left knee (Acute) Osteoarthritis of left knee (Acute) Steroid injection: 12/16/2020 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) Insomnia (Acute) Presbycusis of both ears (Acute) BRAXTON (obstructive sleep apnea) (Chronic) Morbid obesity (Acute) Hypercholesterolemia (Acute) Primary hypertension (Acute) Benign prostatic hyperplasia with urinary frequency (Acute) Medical History Atrial flutter Kidney stone Social History Smoking/Tobacco Use Status: Former Tobacco Use Smoking risk assessment performed?: Yes Alcohol Intake: former Drug use: Never Substance use type: does not use Housing: house Do you feel safe at home: Yes Do you feel safe in your relationship?: Yes
[2023-11-26] MEDS: Diclofenac 1% Gel 100 GM TUBE TP (10:51)
== END 2023-11-26 10:52 | disposition home or self-care (01) ==
PROVIDERS: Emergency Provider Student in an Organized Health Care Education/Training Program; PCP Internal Medicine
DX: M25.552 Pain in left hip (principal); G89.29 Other chronic pain
CPT/HCPCS: 99283

== ENCOUNTER 2023-11-30 08:48 | Emergency (ER) | payer MEDICARE, BC, SELFPAY ==
[2023-11-30 08:50] VITALS: BP 179/115; PULSE 74; RESP 20; TEMP 36.5; O2SAT 98
--- NOTE | 2023-11-30 09:00 | DI.RAD_ITS ---
Exam(s) XR FEMUR LT EXAM: XR FEMUR LT CLINICAL HISTORY: pain in left hip. TECHNIQUE: 2D digital imaging was performed. COMPARISON: No exams were available for comparison FINDINGS: Two views. There is no evidence nor femur fracture. No obvious degenerative changes in the hip joint. Bone den sity normal. No osseous lesions. No radiopaque foreign bodies. IMPRESSION: No acute osseous findings in the left hip and femur. DATA REPOSITORY: RADIATION DOSE DELIVERED:
--- NOTE | 2023-11-30 09:14 | W.ED.GENAD ---
Discharge Plan Disposition Patient Disposition: Home Condition: Stable Discharge Details Clinical Impression: Acute pain of left hip Primary Care Provider: Sadi Rogers ED Provider: Alexander Ortega Home Meds and New Rx's Prescriptions: New prednisone 20 mg tablet 60 mg PO DAILY 5 Days Qty: 15 0RF morphine 15 mg tablet 15 mg PO Q8H PRN (Reason: pain) Qty: 10 0RF Continued cholecalciferol (vitamin D3) 125 mcg (5,000 unit) capsule 125 mcg PO DAILY losartan 50 mg tablet 50 mg PO DAILY metformin 1,000 mg tablet 1,000 mg PO BID saw palmetto 500 mg capsule 1,000 mg PO DAILY Rx Instructions: give with food (meal/snack) rosuvastatin 20 mg tablet 20 mg PO DAILY melatonin 5 mg capsule 5 mg PO DAILY PRN finasteride 5 mg tablet 5 mg PO DAILY Xarelto 20 mg tablet 20 mg PO DAILY Rx Instructions: must administer with evening meal metoprolol succinate 50 mg tablet extended release 24 hr 25 mg PO DAILY Qty: 90 3RF glipizide 2.5 mg tablet extended release 24hr 2.5 mg PO DAILY pioglitazone 15 mg tablet 15 mg PO DAILY trospium 20 mg tablet 20 mg PO DAILY potassium chloride 20 mEq/15 mL liquid 20 meq PO DAILY Qty: 450 0RF magnesium oxide 500 mg magnesium tablet 500 mg PO BID Qty: 60 0RF diclofenac sodium 1 % gel 2 g topical QID Qty: 100 0RF Rx Instructions: apply to single elbow, wrist or hand; for hand includes palm/fingers/back of hand Discharge Instructions Additional Instructions: Follow-up with orthopedics, call their office to arrange for follow-up appointment If you feel more ill or develop new symptoms such as high fevers return to the emergency department for reevaluation Referrals: Wade Acevedo MD [ [facility] STAFF PHYSICIAN] - [facility] General Mode of arrival: EMS. Date/Time Provider Initiated Documentation: 11/30/23 08:50. Limitations to Documentation: no limitations. Information obtained by: patient. History of Present Illness 78 year old M presents to the emergency department with the chief complaint of left hip pain, described as moderate, Patient started experiencing this month(s) (2) and it has been constant. No relieving factors improve symptom(s), No exacerbating factors reported . Patient notes denies nausea/vomiting and shortness of breath. Related Data Home Medications ?Medication ?Instructions ?Recorded ?Confirmed cholecalciferol (vitamin D3) 125 125 mcg PO DAILY 12/10/20 11/30/23 mcg (5,000 unit) capsule losartan 50 mg tablet 50 mg PO DAILY 12/10/20 11/30/23 metformin 1,000 mg tablet 1,000 mg PO BID 12/10/20 11/30/23 saw palmetto 500 mg capsule 1,000 mg PO DAILY 12/10/20 11/30/23 rivaroxaban 20 mg tablet (Xarelto) 20 mg PO DAILY 09/17/21 11/30/23 melatonin 5 mg capsule 5 mg PO DAILY PRN 01/26/22 11/30/23 rosuvastatin 20 mg tablet 20 mg PO DAILY 01/26/22 11/30/23 finasteride 5 mg tablet 5 mg PO DAILY 12/03/22 11/30/23 glipizide 2.5 mg tablet, extended 2.5 mg PO DAILY 05/17/23 11/30/23 release 24 hr pioglitazone 15 mg tablet 15 mg PO DAILY 05/17/23 11/30/23 trospium 20 mg tablet 20 mg PO DAILY 05/17/23 11/30/23 magnesium oxide 500 mg PO BID #60 tabs 05/20/23 11/30/23 potassium chloride 20 mEq/15 mL 20 meq (15 mL) PO DAILY #450 mL 05/20/23 11/30/23 oral liquid diclofenac sodium 1 % topical gel 2 g topical QID #100 grams 08/10/23 11/30/23 metoprolol succinate 50 mg 25 mg (1/2 x 50 mg) PO DAILY #90 11/11/23 11/30/23 tablet,extended release 24 hr tabs morphine 15 mg immediate release 15 mg PO Q8H PRN pain #10 tabs 11/30/23 tablet prednisone 20 mg tablet 60 mg (3 x 20 mg) PO DAILY 5 days 11/30/23 #15 tabs Previous Rx's ?Medication ?Instructions ?Recorded magnesium oxide 500 mg PO BID #60 tabs 05/20/23 potassium chloride 20 mEq/15 mL 20 meq (15 mL) PO DAILY #450 mL 05/20/23 oral liquid diclofenac sodium 1 % topical gel 2 g topical QID #100 grams 08/10/23 metoprolol succinate 50 mg 25 mg (1/2 x 50 mg) PO DAILY #90 11/11/23 tablet,extended release 24 hr tabs morphine 15 mg immediate release 15 mg PO Q8H PRN pain #10 tabs 11/30/23 tablet prednisone 20 mg tablet 60 mg (3 x 20 mg) PO DAILY 5 days 11/30/23 #15 tabs Allergies Allergy/AdvReac Type Severity Reaction Status Date / Time lisinopril AdvReac Mild cough Verified 11/30/23 08:54 ibuprofen AdvReac Other (See Verified 11/30/23 08:54 Comment) trazodone AdvReac dry mouth Verified 11/30/23 08:54 General Stated Complaint: Orthopedic TETE: 3 Review of Systems All systems reviewed & are unremarkable except as noted in HPI and below Constitutional Constitutional: Denies chills, Denies fever(s) and Denies weakness Cardiovascular Cardiovascular: Denies chest pain and Denies dyspnea Respiratory Respiratory: Denies cough and Denies dyspnea Gastrointestinal Gastrointestinal: Denies abdominal pain, Denies nausea and Denies vomiting Musculoskeletal Musculoskeletal: Reports arthralgias and Denies joint swelling Integumentary/Breasts Skin/Breast: Denies rash Neurologic Neurologic: Denies weakness Exam Const General: no acute distress Orientation: alert [facility] Head: normal to inspection Ears: external ears normal General nose exam: external nose normal Mouth: moist mucous membranes Eyes General: appearance normal, both eyes and all related structures Neck Neck: normal visual inspection Resp Effort & Inspection: normal respiratory effort and able to speak in complete sentences Cardio Rate: regular rate GI Palpation: soft and nontender Skin General skin exam: no rashes or lesions noted Neuro General: patient alert and patient oriented x3 Extrem General: normal to inspection Psych Mental Status: mental status grossly normal Course Vital Signs Vital signs: Vital Signs Temperature 36.5 C 11/30/23 08:50 Pulse 74 11/30/23 08:50 Respiratory Rate 20 11/30/23 08:50 Blood Pressure 179/115 H 11/30/23 08:50 Pulse Oximetry 98 11/30/23 08:50 Temperature 36.5 C 11/30/23 08:50 Temperature Source Oral 11/30/23 08:50 Pulse 74 11/30/23 08:50 Respiratory Rate 20 11/30/23 08:50 Blood Pressure 179/115 H 11/30/23 08:50 Blood Pressure Position Sitting 11/30/23 08:50 Pulse Oximetry 98 11/30/23 08:50 Oxygen Delivery Method Room Air 11/30/23 08:50 Oxygen Flow Rate 0 11/30/23 08:50 Pain Level 3 11/30/23 08:50 Medical Decision Making 78-year-old male who has had left hip pain without trauma for over a month, lymphocytopenia, coronary artery disease, who comes in with continued left hip pain. He denies any new falls, no fevers or chills. No abdominal pain. No back pain. No chest pain or shortness of breath. He localizes the pain to the left lateral hip and is tender in this area. There is no visible or palpable deformities. He has limited range of motion in the hip due to pain. Intact distal sensation and pulses, no swelling of the leg. Suspect bursitis versus arthritis, will obtain x-rays given has had pain for 2 months to evaluate for possible osteo though seems unlikely given no infectious symptoms. Will also obtain CBC and CMP along with CRP and sed rate though my suspicion for septic arthritis is low. Labs and x-ray showed no significant findings. Consulted orthopedics who did an injection he had significant relief of his pain. Suspect arthritis. Labs reassuring against septic arthritis. He will follow-up with orthopedics in 2 weeks and return precautions given Differential Diagnosis Differential Diagnosis: bursitis, arthritis, osteo Quality:SDOH Health Related Social Needs: No Data to Display PFSH All Active Problems (Updated 11/30/23 @ 13:00 by Alexander Ortega MD) Acute pain of left hip (Acute) Chronic left hip pain (Acute) Achilles tendon contracture, right (Acute) Calcific Achilles tendinitis of right lower extremity (Acute) Insertional tendinopathy of right Achilles tendon (Acute) Achilles tendinitis of left lower extremity (Acute) Acute febrile illness (Acute) Acquired lymphocytopenia (Acute) Weakness (Acute) Pancytopenia (Acute) Acute UTI (Acute) Weakness (Acute) Coronary artery disease (Chronic) 12/18/21 pt had PTCA w stent to LAD at [facility] Abnormal nuclear stress test (Acute) Paroxysmal atrial flutter (Acute) Trochanteric bursitis, right hip (Acute) Pes anserinus bursitis of left knee (Acute) Osteoarthritis of left knee (Acute) Steroid injection: 12/16/2020 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) Insomnia (Acute) Presbycusis of both ears (Acute) BRAXTON (obstructive sleep apnea) (Chronic) Morbid obesity (Acute) Hypercholesterolemia (Acute) Primary hypertension (Acute) Benign prostatic hyperplasia with urinary frequency (Acute) Medical History Atrial flutter Kidney stone Social History Smoking/Tobacco Use Status: Former Tobacco Use Smoking risk assessment performed?: Yes Alcohol Intake: former Drug use: Never Substance use type: does not use Housing: house Do you feel safe at home: Yes Do you feel safe in your relationship?: Yes
[2023-11-30 09:38] LABS: Abs Immature Grans 0.02 10^3/uL (0.0-0.06); Absolute Basophil Count 0.03 10^3/uL (0.0-0.2); Absolute Eosinophil Count 0.23 10^3/uL (0.0-0.7); Absolute Lymphocyte Count 0.78 10^3/uL (1.2-3.4); Absolute Monocyte Count 0.42 10^3/uL (0.1-0.8); Absolute Neutrophil Count 3.77 10^3/uL (1.2-6.7); Basophils % 0.6 %; Eosinophils % 4.4 %; HCT 37.4 % (40.0-50.0); HGB 12.7 g/dL (13.5-17.5); Immature Grans % 0.4 %; Lymphocytes % 14.9 %; MCH 31.7 pg (27.0-33.0); MCV 93 fL (80-95); MPV 10.1 fL (8.0-11.0); Neutrophils % 71.7 %; Platelet Count 150 10^3/uL (130-400); RBC 4.01 10^6/uL (4.36-5.78); RDW 12.9 % (11.8-14.1); WBC 5.25 10^3/uL (4.4-10.8)
[2023-11-30 10:06] LABS: ALT 26 U/L (16-63); AST 24 U/L (15-37); Albumin 3.2 g/dL (3.4-5.0); Alkaline Phosphatase 46 U/L (46-116); Anion Gap 8.5 mmol/L (3-11); BUN 13 mg/dL (7-18); Bilirubin, Total 0.73 mg/dL (0.2-1.0); CO2 27.5 mmol/L (21.0-32.0); Calcium 8.7 mg/dL (8.5-10.1); Chloride 105 mmol/L (98-107); Estimated GFR 76.56 (mL/min/1.73m2); Glucose 178 mg/dL (74-106); Magnesium 1.7 mg/dL (1.8-2.4); Potassium 4.1 mmol/L (3.5-5.1); Sodium 141 mmol/L (136-145); Total Protein 6.1 g/dL (6.4-8.2)
[2023-11-30 10:07] LABS: C-Reactive Protein < 0.50 mg/dL (<or=0.5)
[2023-11-30 10:15] LABS: Procalcitonin 0.1 ng/mL
[2023-11-30 10:16] LABS: ESR 7 mm/hr (0-20)
--- NOTE | 2023-11-30 11:08 | W.ORTHOCONSU ---
Date of service: 11/30/23 Time of Service: 10:55 History of Present Illness History of Present Illness Chief Complaint: Left Hip Pain Narrative: Bobo is a 78-year-old male who presents to the emergency department today for debilitating left hip pain. He has had multiple ER visits for hip pain. However, he finds that he is having difficulty with weightbearing. He reports pain about the groin and down the anterior aspect of the left leg towards the knee. It does not go past the knee. He reports not going to doctors often. He feels that he has a high pain tolerance but this pain is been quite unbearable. He denies any trauma preceding. He has not done much for that but try to take [id number] analgesics. Weightbearing makes the pain worse. Attempting to lift the leg off the ground also hurts. He denies any numbness or tingling distally. Consults Consult date: 11/30/23 Requesting physician: Alexander Ortega Consult Reason Left Hip Pain Assessment and Plan Assessment and plan (1) Arthritis of left hip: Status: Acute Assessment and plan: Bobo is a 78-year-old male who has arthritis of his left hip. This interesting is that his arthritis is not that severe on the x-rays or CT scan although it is present. His examination is overwhelmingly positive for left hip arthritis being the source of his pain. He does have some signs of trochanteric bursitis. He also has a CT scan of his abdomen which includes a lumbar spine which has significant amount of degeneration. However, he does not seem to be having symptoms from the back and does seem to be coming from the hip. Therefore, I offered a hip injection under ultrasound guidance for diagnostic and therapeutic purposes. Following the injection he noted significant improvements with his pain. I think is imperative that he gives this time to work but also that he works on managing his pain through other conservative measures including physical therapy, anti-inflammatories, and weight management. I will see him back in the office another 2 to 3 weeks to see how he is doing. Review of Systems All systems reviewed & are unremarkable except as noted in HPI and below PFSH All Active Problems (Updated 12/01/23 @ 18:57 by Wade Acevedo MD) Arthritis of left hip (Acute) Acute pain of left hip (Acute) Chronic left hip pain (Acute) Achilles tendon contracture, right (Acute) Calcific Achilles tendinitis of right lower extremity (Acute) Insertional tendinopathy of right Achilles tendon (Acute) Achilles tendinitis of left lower extremity (Acute) Acute febrile illness (Acute) Acquired lymphocytopenia (Acute) Weakness (Acute) Pancytopenia (Acute) Acute UTI (Acute) Weakness (Acute) Coronary artery disease (Chronic) 12/18/21 [place] [facility] [place] Abnormal nuclear stress test (Acute) Paroxysmal atrial flutter (Acute) Trochanteric bursitis, right hip (Acute) Pes anserinus bursitis of left knee (Acute) Osteoarthritis of left knee (Acute) Steroid injection: 12/16/2020 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) Insomnia (Acute) Presbycusis of both ears (Acute) BRAXTON (obstructive sleep apnea) (Chronic) Morbid obesity (Acute) Hypercholesterolemia (Acute) Primary hypertension (Acute) Benign prostatic hyperplasia with urinary frequency (Acute) Medical History Atrial flutter Kidney stone Social History Smoking/Tobacco Use Status: Former Tobacco Use Smoking risk assessment performed?: Yes Alcohol Intake: former Drug use: Never Substance use type: does not use Housing: house Do you feel safe at home: Yes Do you feel safe in your relationship?: Yes Exam Narrative Exam Narrative: Resting in the supine position in the hospital stretcher. No acute distress. Alert and orient x 3. Evaluation of left lower extremity shows no overlying skin changes. No masses. There is some pain with hip range of motion passively, particular with any internal or external rotation. He has a positive Stinchfield test. He is positive pain in the groin and in the proximal?anterior thigh with active hip flexion. Moderate pain over the greater trochanter. No significant pain over the midline of the lumbar spine. Sensation intact to light touch over the deep and superficial peroneal nerve and tibial nerve. Foot is warm and well-perfused. Straight leg raise test is not positive for any numbness or tingling or radicular pain down into the foot. Results Last Vital Signs Temp 36.5 C 11/30/23 08:50 Pulse 74 11/30/23 08:50 Resp 20 11/30/23 08:50 BP 179/115 H 11/30/23 08:50 Pulse Ox 98 11/30/23 08:50 Labs 11/30/23 09:30 11/30/23 09:30 Labs: Laboratory Results - last 24 hr 11/30/23 09:30 WBC 5.25 RBC 4.01 L Hgb 12.7 L Hct 37.4 L MCV 93 MCH 31.7 MCHC 34.0 RDW 12.9 Plt Count 150 MPV 10.1 Immature Gran % 0.4 Neutrophils % 71.7 Lymphocytes % 14.9 Monocytes % 8.0 Eosinophils % 4.4 Basophils % 0.6 Nucleated RBC % 0.0 Absolute Neutrophils 3.77 Absolute Lymphocytes 0.78 L Absolute Monocytes 0.42 Absolute Eosinophils 0.23 Absolute Basophils 0.03 ESR 7 Sodium 141 Potassium 4.1 Chloride 105 Carbon Dioxide 27.5 Anion Gap 8.5 BUN 13 Creatinine 1.0 Est GFR (CKD-EPI 2020) 76.56 Glucose 178 H Calcium 8.7 Magnesium 1.7 L Total Bilirubin 0.73 AST 24 ALT 26 Alkaline Phosphatase 46 C-Reactive Protein < 0.50 Total Protein 6.1 L Albumin 3.2 L Procalcitonin 0.1 Imaging Imaging Studies: Previous x-ray of the left hip and pelvis was reviewed. This shows some mild to moderate degenerative changes about both hips. No fracture. No suspicious lesions. CT scan of the left hip shows some moderate arthritis about the left hip with a small lateral acetabular cyst. No other significant findings are appreciated. Previous CT scan of the abdomen was also reviewed which shows multiple level degenerative disease within the lower thoracic and lumbar spine. There appears to be some notable stenosis at the L2-3 level cover tickly in the foramen on the left side with some signs of central stenosis as well at the L4-5 region as well. Joint Injections Hip Joint injection(s): Left Hip Indications: Arthritis Visualized Structures: Femoral Head Findings/Impressions: Verbal consent obtained, Anatomical Landmarks palpated, Injection site marked, Topical Anesthetic sprayed, 7cc bupivacaine mixed with 80mg Depo-Medrol, 21 gauge needle used, Injection made without resistance, Hemostasis achieved and Patient tolerated procedure well Hip Injection Billing: Exam Complete (Performed by Saadia Veloz PA-C)
[2023-11-30] MEDS: Bupivacaine 0.25% Pres-Free 10 ML VIAL IJ (11:38)
[2023-11-30] MEDS: Bupivacaine 0.25% Pres-Free 10 ML VIAL (11:38)
[2023-11-30] MEDS: methylPREDNISolone ACETATE 80 MG/ML VIAL IJ (11:40)
== END 2023-11-30 14:00 | disposition home or self-care (01) ==
PROVIDERS: Emergency Provider Emergency Medicine; PCP Internal Medicine
DX: M25.552 Pain in left hip (principal); M16.12 Unilateral primary osteoarthritis, left hip; I25.10 Atherosclerotic heart disease of native coronary artery without angina pectoris; I10 Essential (primary) hypertension; E78.00 Pure hypercholesterolemia, unspecified; Z79.82 Long term (current) use of aspirin; Z95.5 Presence of coronary angioplasty implant and graft; Z87.891 Personal history of nicotine dependence
CPT/HCPCS: 20610; 36415; 73552; 80053; 84145; 85652; 99283; 99284; 83735; 85025; 86140; J0665; J1010

== ENCOUNTER → 2023-12-20 09:49 | Outpatient (BNVA) | payer MEDICARE, BC, SELFPAY | PROVIDERS: PCP Internal Medicine; Referring Provider Internal Medicine | DX: M16.12 Unilateral primary osteoarthritis, left hip (principal); M70.62 Trochanteric bursitis, left hip | CPT/HCPCS: 20610; J1010 ==

== ENCOUNTER 2023-12-28 09:07 | Emergency (ER) | payer MEDICARE, BC, SELFPAY ==
[2023-12-28 09:15] VITALS: BP 170/147; PULSE 93; RESP 17; TEMP 37; O2SAT 97
--- NOTE | 2023-12-28 11:19 | W.ED.GENAD ---
Discharge Plan Disposition Patient Disposition: Home Condition: Good Discharge Details Clinical Impression: Bursitis of hip, right, Acute pain of right hip Primary Care Provider: Sadi Roegrs ED Provider: Rosina Bosch Home Meds and New Rx's Prescriptions: Continued cholecalciferol (vitamin D3) 125 mcg (5,000 unit) capsule 125 mcg PO DAILY losartan 50 mg tablet 50 mg PO DAILY metformin 1,000 mg tablet 1,000 mg PO BID saw palmetto 500 mg capsule 1,000 mg PO DAILY Rx Instructions: give with food (meal/snack) rosuvastatin 20 mg tablet 20 mg PO DAILY melatonin 5 mg capsule 5 mg PO DAILY PRN finasteride 5 mg tablet 5 mg PO DAILY Xarelto 20 mg tablet 20 mg PO DAILY Rx Instructions: must administer with evening meal metoprolol succinate 50 mg tablet extended release 24 hr 25 mg PO DAILY Qty: 90 3RF glipizide 2.5 mg tablet extended release 24hr 2.5 mg PO DAILY pioglitazone 15 mg tablet 15 mg PO DAILY trospium 20 mg tablet 20 mg PO DAILY potassium chloride 20 mEq/15 mL liquid 20 meq PO DAILY Qty: 450 0RF magnesium oxide 500 mg magnesium tablet 500 mg PO BID Qty: 60 0RF diclofenac sodium 1 % gel 2 g topical QID Qty: 100 0RF Rx Instructions: apply to single elbow, wrist or hand; for hand includes palm/fingers/back of hand morphine 15 mg tablet 15 mg PO Q8H PRN (Reason: pain) Qty: 10 0RF Discharge Instructions Instructions: Hip Bursitis (DC) Additional Instructions: As we discussed, I am concerned that the inflammation of your bursa in your right hip is associated with you walking differently because of the pain that you have been having in the left. I encourage you to try to walk up straighter, ensure that your walker is set appropriately. I have also referred you to physical therapy is going to be able to help you further with this. Please encourage hydration and gentle stretching. You may use heat to help relax the muscle as well as massage or rolling the area. Please follow-up with orthopedics for reevaluation and continued management of your bilateral hip pain. If you develop fever/chills, increased pain, redness around injection site, or other new/worsening symptoms please seek care urgently once again. Stand Alone Forms: Physical Therapy Referral Referrals: Sadi Rogers [Primary Care Provider] - [facility] General Date/Time Provider Initiated Documentation: 12/28/23 09:09. Limitations to Documentation: no limitations. Information obtained by: patient, family, RN notes reviewed and old records reviewed. History of Present Illness 78 year old M presents to the emergency department with the chief complaint of Right hip pain, described as moderate, Quality is described as aching, and is localized to the right and lower extremity. Patient distal (Laterally along the right thigh, stops before the knee). Patient started experiencing this day(s) and it has been intermittent. Immobilization improves symptom(s), Movement worsens symptoms . Patient notes no other symptoms.. Patient did receive the following treatments prior to arrival, none Related Data Home Medications ?Medication ?Instructions ?Recorded ?Confirmed cholecalciferol (vitamin D3) 125 125 mcg PO DAILY 12/10/20 12/28/23 mcg (5,000 unit) capsule losartan 50 mg tablet 50 mg PO DAILY 12/10/20 12/28/23 metformin 1,000 mg tablet 1,000 mg PO BID 12/10/20 12/28/23 saw palmetto 500 mg capsule 1,000 mg PO DAILY 12/10/20 12/28/23 rivaroxaban 20 mg tablet (Xarelto) 20 mg PO DAILY 09/17/21 12/28/23 melatonin 5 mg capsule 5 mg PO DAILY PRN 01/26/22 12/28/23 rosuvastatin 20 mg tablet 20 mg PO DAILY 01/26/22 12/28/23 finasteride 5 mg tablet 5 mg PO DAILY 12/03/22 12/28/23 glipizide 2.5 mg tablet, extended 2.5 mg PO DAILY 05/17/23 12/28/23 release 24 hr pioglitazone 15 mg tablet 15 mg PO DAILY 05/17/23 12/28/23 trospium 20 mg tablet 20 mg PO DAILY 05/17/23 12/28/23 magnesium oxide 500 mg PO BID #60 tabs 05/20/23 12/28/23 potassium chloride 20 mEq/15 mL 20 meq (15 mL) PO DAILY #450 mL 05/20/23 12/28/23 oral liquid diclofenac sodium 1 % topical gel 2 g topical QID #100 grams 08/10/23 12/28/23 metoprolol succinate 50 mg 25 mg (1/2 x 50 mg) PO DAILY #90 11/11/23 12/28/23 tablet,extended release 24 hr tabs morphine 15 mg immediate release 15 mg PO Q8H PRN pain #10 tabs 11/30/23 12/28/23 tablet Previous Rx's ?Medication ?Instructions ?Recorded magnesium oxide 500 mg PO BID #60 tabs 05/20/23 potassium chloride 20 mEq/15 mL 20 meq (15 mL) PO DAILY #450 mL 05/20/23 oral liquid diclofenac sodium 1 % topical gel 2 g topical QID #100 grams 08/10/23 metoprolol succinate 50 mg 25 mg (1/2 x 50 mg) PO DAILY #90 11/11/23 tablet,extended release 24 hr tabs morphine 15 mg immediate release 15 mg PO Q8H PRN pain #10 tabs 11/30/23 tablet Allergies Allergy/AdvReac Type Severity Reaction Status Date / Time lisinopril AdvReac Mild cough Verified 12/28/23 09:19 ibuprofen AdvReac Other (See Verified 12/28/23 09:19 Comment) trazodone AdvReac dry mouth Verified 12/28/23 09:19 General Stated Complaint: Orthopedic TETE: 3 Review of Systems Constitutional Constitutional: Reports as per HPI, Denies chills, Denies fever(s), Denies headache(s) and Denies weakness ENT Ears, Nose, Mouth, and Throat: Denies headache(s) Cardiovascular Cardiovascular: Reports as per HPI Respiratory Respiratory: Reports as per HPI and Denies cough Musculoskeletal Musculoskeletal: Reports as per HPI and Denies tingling Integumentary/Breasts Skin/Breast: Reports as per HPI, Denies rash and Denies wounds Neurologic Neurologic: Reports as per HPI, Denies headache(s), Denies tingling, Denies paresthesias and Denies weakness Exam Const General: cooperative, healthy appearing, comfortable, no acute distress, well developed and well groomed Nutritional Appearance: well nourished and overweight Orientation: alert and awake Resp Effort & Inspection: normal respiratory effort, able to speak in complete sentences and no respiratory distress Cardio Rate: regular rate Rhythm: regular rhythm Skin General skin exam: no rashes or lesions noted Lesions: no lesions Rashes: no rashes Trauma: no lacerations or abrasions Neuro General: patient alert and patient awake Cognition: normal cognition Speech: speech normal Gait: antalgic Motor: muscle tone normal throughout Sensory Exam: no sensory deficits noted Extrem Upper/lower leg/hip images: 1. Area of maximal discomfort. Pain is greatest over the greater trochanter as well as with flexion and internal rotation of the right hip causing pulling over this area. Patient has pain as well palpating down the iliotibial band. No deformity, ecchymosis or evidence of trauma. This area does feel quite tight. No pain at the knee itself. No erythema or warmth. No pain with axial loading of the hip or with other range of motion exercises of the hip. Patient does have good strength and 2+ distal pulses. Sensation is intact. Course Vital Signs Vital signs: Vital Signs Temperature 37.0 C 12/28/23 09:15 Pulse 93 H 12/28/23 09:15 Respiratory Rate 17 12/28/23 09:15 Blood Pressure 170/147 H 12/28/23 09:15 Pulse Oximetry 97 12/28/23 09:15 Temperature 37.0 C 12/28/23 09:15 Temperature Source Oral 12/28/23 09:15 Pulse 93 H 12/28/23 09:15 Respiratory Rate 17 12/28/23 09:15 Respiratory Effort Normal 12/28/23 09:18 Blood Pressure 170/147 H 12/28/23 09:15 Blood Pressure Position Supine 12/28/23 09:15 Pulse Oximetry 97 12/28/23 09:15 Oxygen Delivery Method Room Air 12/28/23 09:15 Oxygen Flow Rate 0 12/28/23 09:15 Pain Level 3 12/28/23 09:18 Comment Increases to a 10 at certain positions 12/28/23 09:15 Procedures Joint Aspiration/Injection Joint Asp./Inject. 1: Time Out Performed: Yes Side of body: right Ultrasound Guidance: No Skin Prep: Chlorhexidene Local Anesthetic: Lidocaine 1% Amount of anesthesia used (mL): 4 Needle Size Used: 22G Medication Injected, if any: Triamcinolone Acetate Amount of Medication Injected (mls): 40 Patient Tolerated Procedure: well and no complications Complications: none Medical Decision Making Patient is a pleasant 78-year-old male, brought in by his , chief complaint of right hip pain. Patient been battling left hip pain for quite some time and found an intra-articular injection to be quite helpful. He states that over recent days he has been developing increased pain in the right hip and indicates the lateral aspect as point of maximal tenderness. He denies any trauma. No fevers or chills. No break in the skin. He and the report that he has been using a walker and is walking with a forward bent gait trying to compensate for the pain in the left hip. Denies any numbness or tingling. No pain in the back. Patient was also treated for anaplasmosis few months ago. On exam, patient appears nontoxic. He is hemodynamically stable. Initially hypertensive this is downtrending. Exam of the right lower extremity revealed to be neurovascularly intact. 2+ pulses. No pain in the calf or knee. Full range of motion of the right hip and knee. He has some discomfort with internal rotation with the knee bent putting excess force on the lateral aspect of the hip. He has no pain with axial loading of the hip, no groin pain to indicate intra-articular discomfort. He does have known mild osteoarthritis in both of his hips. He is point tender over the greater trochanter making me believe this is likely trochanteric bursitis. Patient I discussed treatment options. As this pain seems to be limiting his ADLs and making ambulation difficult. He is not having any pain at rest. No indication of intra-articular infection. His symptoms seem much more associated with trochanteric bursitis likely with compensation from the left hip pain. As his symptoms are making his ambulation difficult, discussed risk/benefits as well as expected procedural steps associated with injection of the bursa with Kenalog and lidocaine. We also discussed alternatives. Patient would like to move forward with this. We discussed all risks including nerve injury, bleeding, infection. Please see procedure note. Injection of the greater trochanteric bursitis was performed using standard sterile technique. 4 mL of 1% lidocaine with 40 mg of Kenalog was injected over area of maximal tenderness. After allowing this set for a few minutes, patient had good improvement in his discomfort was able to ambulate with an improved gait, appeared less antalgic. I did encourage physical therapy, particularly as it sounds like his hips are back bouncing back and forth likely associated with his atypical gait. I also encouraged his to look at the height of his walker ensure that this is up high enough as both of them report that he is walking slightly hunched while using it. We discussed supportive care and rolling of the IT band as well as heat and/or ice. Encourage follow-up with orthopedics. Return precautions were discussed. All of their questions and concerns were addressed and they are agreement this plan. This documentation was generated using [employer] system, please disregard any oddities of phrase or misspellings. Quality:[facility] Health Related Social Needs: No Data to Display PFSH All Active Problems (Updated 12/28/23 @ 11:26 by CECI Owens) Acute pain of right hip (Acute) Bursitis of hip, right (Acute) Trochanteric bursitis, left hip (Acute) Steroid injection: 12/20/2023 Arthritis of left hip (Acute) POCUS injection: 11/30/2023 Achilles tendon contracture, right (Acute) Calcific Achilles tendinitis of right lower extremity (Acute) Insertional tendinopathy of right Achilles tendon (Acute) Achilles tendinitis of left lower extremity (Acute) Acute febrile illness (Acute) Acquired lymphocytopenia (Acute) Weakness (Acute) Pancytopenia (Acute) Acute UTI (Acute) Weakness (Acute) Coronary artery disease (Chronic) 12/18/21 pt had PTCA w stent to LAD at [facility] Abnormal nuclear stress test (Acute) Paroxysmal atrial flutter (Acute) Trochanteric bursitis, right hip (Acute) Pes anserinus bursitis of left knee (Acute) Osteoarthritis of left knee (Acute) Steroid injection: 12/16/2020 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) Insomnia (Acute) Presbycusis of both ears (Acute) BRAXTON (obstructive sleep apnea) (Chronic) Morbid obesity (Acute) Hypercholesterolemia (Acute) Primary hypertension (Acute) Benign prostatic hyperplasia with urinary frequency (Acute) Medical History Atrial flutter Kidney stone Social History Smoking/Tobacco Use Status: Former Tobacco Use Smoking risk assessment performed?: Yes Alcohol Intake: former Drug use: Never Substance use type: does not use Housing: house Do you feel safe at home: Yes Do you feel safe in your relationship?: Yes
[2023-12-28] MEDS: Lidocaine 1% Multi-Dose 50 ML VIAL (11:44)
[2023-12-28] MEDS: Triamcinolone 40 MG/ML VIAL IM (11:45)
[2023-12-28 11:47] VITALS: BP 138/86; PULSE 73; RESP 16; TEMP 35.9; O2SAT 98
== END 2023-12-28 12:29 | disposition home or self-care (01) ==
PROVIDERS: Emergency Provider Physician Assistant; PCP Internal Medicine
DX: M25.551 Pain in right hip (principal); M70.71 Other bursitis of hip, right hip; Z79.01 Long term (current) use of anticoagulants; Z79.84 Long term (current) use of oral hypoglycemic drugs
CPT/HCPCS: 99283; J2003; J3301

== ENCOUNTER → 2024-01-24 09:25 | Outpatient (BNVA) | payer MEDICARE, BC, SELFPAY | PROVIDERS: PCP Internal Medicine; Referring Provider Internal Medicine | DX: M70.71 Other bursitis of hip, right hip (principal); M16.12 Unilateral primary osteoarthritis, left hip; M70.62 Trochanteric bursitis, left hip | CPT/HCPCS: 99213 ==

== ENCOUNTER → 2024-03-02 10:48 | Outpatient (BNVA) | payer MEDICARE, BC, SELFPAY | PROVIDERS: PCP Internal Medicine; Visit Provider Internal Medicine Cardiovascular Disease | DX: I25.10 Atherosclerotic heart disease of native coronary artery without angina pectoris (principal); I48.92 Unspecified atrial flutter | CPT/HCPCS: 99214 ==

== ENCOUNTER 2024-03-04 15:52 | Outpatient (REF) | payer MEDICARE, BC, SELFPAY | END 2024-03-04 15:53 | disposition home or self-care (01) | LOC: LBN 15:52 | PROVIDERS: PCP Internal Medicine; Visit Provider Physician Assistant | DX: N39.0 Urinary tract infection, site not specified (principal); R30.0 Dysuria | CPT/HCPCS: 87077; 87086; 87186 ==

== ENCOUNTER 2024-03-13 00:06 | Outpatient (CLI) | payer MEDICARE, BC, SELFPAY ==
--- NOTE | 2024-03-13 07:15 | DI.NM_ITS ---
APPROVED REPORT Exam: Pharmacologic Patient Location: Out-Patient Room/Bed: Stress Nurse: Kiarra Hernandez RN Ordering Provider:SAMUEL BURLESON, Contact Number: BMI: 43.84 Baseline Rhythm: Atrial Fibrillation Indications: VALLE Medical History Medical History: Aflutter, CAD, morbid obesity, DMT2, insomnia, BRAXTON, HTN, HLD Cardiac Medications: Finasteride, glipizide, losartan, magnesium oxide, metformin, metoprolol succina te, pioglitazone, potassium chloride, xarelto, rosuvastatin, flomax Allergies: Lisinopril, ibuprofen, trazodone Cardiac Risk Factors: Family hx, HTN, HLD, CVD, diabetes, former smoker, obesity Previous Cardiac Procedures: Cardiac stent Pretest Chest Pain Characteristics: None Exercise History: Sedentary Physical Disabilities: Generalized weakness Lung Sounds: Clear to auscultation Heart Sounds: Irregular Stress Test Details Test: Pharmacologic stress testing performed using 0.4 mg of regadenoson per 5 mL given IV over 10 s econds. Reason for pharmacologic stress test: physical limitation. Nuclear Acquisition: Rest Tc-99m/Stress Tc-99m 1 day Rest Isotope: Tc-99m Sestamibi. Dose: 12.0 Date: 03/13/2024 Injection Time: 0915 Stress Isotope: Tc-99m Sestamibi. Dose: 36.0 Date: 03/13/2024 Injection Time: 1100 HR Resting HR Supine: 70 bpm Max Heart Rate (APMHR): 141 bpm Target HR (85% APMHR): 120 bpm Max HR Achieved: 106 bpm % of APMHR: 75 Recovery HR: 82 bpm BP Resting BP Supine: 150/86 mmHg Max BP: 150/86 mmHg Recovery BP: 146/78 mmHg ECG Resting ECG: Atrial Fibrillation, RBBB Stress ECG: Atrial Fibrillation, RBBB ST Change: Nondiagnostic low heart rate Arrhythmia: Occasional PVC's Recovery ECG: Sinus Rhythm, RBBB Recovery ST Change: Nondiagnostic low heart rate Clinical Stress Symptoms: None Angina Score: None Rate Pressure Product: [id number] Stress ECG Conclusion 1. Resting electrocardiogram showed atrial fibrillation, right axis, right bundle branch block 2. Patient underwent testing using pharmacologic stress with regadenoson 3. Peak heart rate achieved was 76% of maximal predicted for age 4. The electrocardiographic portion of the test was nondiagnostic 5. See MPI report Stress Test Summary STAGE HR BP SpO2 Symptoms NOTES Supine 70 150/86 1 min post Lexiscan injection 98 144/78 97% 3 min post Lexiscan injection 90 146/90 98% 6 min post Lexiscan injection 82 146/78 95% MPI Conclusion Myocardial perfusion is negative for ischemia or significant areas of infarction Ejection fraction is 55%. Wall motion is normal
[2024-03-13] MEDS: Regadenoson 0.4 MG/5 ML SYR IVP (11:26)
== END 2024-03-13 00:26 ==
LOC: DI 00:07
PROVIDERS: PCP Internal Medicine; Visit Provider Internal Medicine Cardiovascular Disease
DX: I25.10 Atherosclerotic heart disease of native coronary artery without angina pectoris (principal)
CPT/HCPCS: 78452; 93016; 93018; 93017; J2785

== ENCOUNTER → 2024-06-15 10:07 | Outpatient (BNVA) | payer MEDICARE, BC, SELFPAY | PROVIDERS: PCP Nurse Practitioner Family; Referring Provider Nurse Practitioner Family; Visit Provider Physician Assistant | DX: M16.12 Unilateral primary osteoarthritis, left hip (principal); M70.62 Trochanteric bursitis, left hip; R53.81 Other malaise | CPT/HCPCS: 20611; J1010 ==

== ENCOUNTER 2024-07-19 09:50 | Emergency (ER) | payer MEDICARE, BC, SELFPAY ==
[2024-07-19 09:55] VITALS: BP 170/82; PULSE 78; RESP 20; TEMP 36.7; O2SAT 96
--- NOTE | 2024-07-19 10:39 | ED.GENADUL_ITS ---
Discharge Plan Disposition Patient Disposition: Home Condition: Stable Discharge Details Clinical Impression: Acute pain of right hip Primary Care Provider: Nyasia Osborne ED Provider: Alexander Ortega Home Meds and New Rx's Prescriptions: New prednisone 20 mg tablet 60 mg PO DAILY 4 Days Qty: 12 0RF lidocaine 5 % adhesive patch,medicated 1 patch topical DAILY Qty: 30 0RF Rx Instructions: leave on most painful area for up to 12 hrs Continued cholecalciferol (vitamin D3) 125 mcg (5,000 unit) capsule 125 mcg PO DAILY losartan 50 mg tablet 50 mg PO DAILY metformin 1,000 mg tablet 1,000 mg PO BID rosuvastatin 20 mg tablet 20 mg PO DAILY finasteride 5 mg tablet 5 mg PO DAILY metoprolol succinate 25 mg tablet extended release 24 hr 25 mg PO DAILY Qty: 90 3RF trospium 20 mg tablet 20 mg PO DAILY PreserVision AREDS-2 250-90-40-1 mg capsule 1 tab PO QAM AND QHS magnesium oxide 500 mg capsule 500 mg PO DAILY tamsulosin 0.4 mg capsule 0.4 mg PO BID saw palmetto 450 mg capsule 450 mg PO DAILY furosemide 20 mg tablet 20 mg PO DAILY PRN melatonin 10 mg capsule 10 mg PO HS PRN Xarelto 20 mg tablet 20 mg PO DAILY Rx Instructions: must administer with evening meal potassium chloride 20 mEq/15 mL liquid 20 meq PO DAILY Qty: 450 0RF Discharge Instructions Additional Instructions: Your x-ray showed evidence of arthritis. In addition to the topical lidocaine patch you can try topical diclofenac. Follow-up with orthopedics. If you feel significant more ill or have new symptoms such as high fevers return to the emergency department for reevaluation. HPI General Date/Time Provider Initiated Documentation: 07/19/24 09:52 . Limitations to Documentation: no limitations . Information obtained by: patient . History of Present Illness 78 year old M presents to the emergency department with the chief complaint of right hip pain, described as moderate, Quality is described as aching, and is localized to the right and lower extremity. Patient reports no radiation. Patient started experiencing this week(s) (2) and it has been constant. Rest improves symptom(s), Movement worsens symptoms . Patient notes no other symptoms.. Patient did receive the following treatments prior to arrival, none Related Data Home Medications ?Medication ?Instructions ?Recorded ?Confirmed cholecalciferol (vitamin D3) 125 125 mcg PO DAILY 12/10/20 06/15/24 mcg (5,000 unit) capsule losartan 50 mg tablet 50 mg PO DAILY 12/10/20 06/15/24 metformin 1,000 mg tablet 1,000 mg PO BID 12/10/20 06/15/24 rivaroxaban 20 mg tablet (Xarelto) 20 mg PO DAILY 09/17/21 06/15/24 rosuvastatin 20 mg tablet 20 mg PO DAILY 01/26/22 06/15/24 finasteride 5 mg tablet 5 mg PO DAILY 12/03/22 06/15/24 potassium chloride 20 mEq/15 mL 20 meq (15 mL) PO DAILY #450 mL 05/20/23 06/15/24 oral liquid furosemide 20 mg tablet 20 mg PO DAILY PRN 05/24/24 06/15/24 magnesium oxide 500 mg capsule 500 mg PO DAILY 05/24/24 06/15/24 melatonin 10 mg capsule 10 mg PO HS PRN 05/24/24 06/15/24 metoprolol succinate 25 mg 25 mg PO DAILY #90 tabs 05/24/24 06/15/24 tablet,extended release 24 hr saw palmetto 450 mg capsule 450 mg PO DAILY 05/24/24 06/15/24 tamsulosin 0.4 mg capsule 0.4 mg PO BID 05/24/24 06/15/24 trospium 20 mg tablet 20 mg PO DAILY 05/24/24 06/15/24 vit C 250 mg-vit E 90 mg-zinc 40 1 tab PO QAM AND QHS 05/24/24 06/15/24 mg-copper 1 [id number] capsule (PreserVision AREDS-2) lidocaine 5 % topical patch 1 patch topical DAILY #30 ea 07/19/24 prednisone 20 mg tablet 60 mg (3 x 20 mg) PO DAILY 4 days 07/19/24 #12 tabs Previous Rx's ?Medication ?Instructions ?Recorded potassium chloride 20 mEq/15 mL 20 meq (15 mL) PO DAILY #450 mL 05/20/23 oral liquid metoprolol succinate 25 mg 25 mg PO DAILY #90 tabs 05/24/24 tablet,extended release 24 hr lidocaine 5 % topical patch 1 patch topical DAILY #30 ea 07/19/24 prednisone 20 mg tablet 60 mg (3 x 20 mg) PO DAILY 4 days 07/19/24 #12 tabs Allergies Allergy/AdvReac Type Severity Reaction Status Date / Time lisinopril AdvReac Mild cough Verified 06/19/24 09:27 ibuprofen AdvReac Other (See Verified 06/19/24 09:27 Comment) trazodone AdvReac dry mouth Verified 06/19/24 09:27 General Stated Complaint: Orthopedic TETE: 4 Review of Systems All systems reviewed & are unremarkable except as noted in HPI and below Constitutional Constitutional: Denies chills, Denies fever(s) and Denies weakness Cardiovascular Cardiovascular: Denies chest pain and Denies dyspnea Respiratory Respiratory: Denies cough and Denies dyspnea Gastrointestinal Gastrointestinal: Denies abdominal pain, Denies nausea and Denies vomiting Musculoskeletal Musculoskeletal: Reports arthralgias Neurologic Neurologic: Denies weakness Exam Const General: no acute distress Orientation: alert HENMT Head: normal to inspection Ears: external ears normal General nose exam: external nose normal Mouth: moist mucous membranes Eyes General: appearance normal, both eyes and all related structures Neck Neck: normal visual inspection Resp Effort & Inspection: normal respiratory effort and able to speak in complete sentences Cardio Rate: regular rate Skin General skin exam: no rashes or lesions noted Neuro General: patient alert and patient oriented x3 Extrem General: other (tenderness over right lateral hip) Psych Mental Status: mental status grossly normal Course Vital Signs Vital signs: Vital Signs Temperature 36.7 C 07/19/24 09:55 Pulse 78 07/19/24 09:55 Respiratory Rate 20 07/19/24 09:55 Blood Pressure 170/82 H 07/19/24 09:55 Pulse Oximetry 96 07/19/24 09:55 Temperature 36.7 C 07/19/24 09:55 Temperature Source Oral 07/19/24 09:55 Pulse 78 07/19/24 09:55 Respiratory Rate 20 07/19/24 09:55 Blood Pressure 170/82 H 07/19/24 09:55 Blood Pressure Position Sitting 07/19/24 09:55 Pulse Oximetry 96 07/19/24 09:55 Oxygen Delivery Method Room Air 07/19/24 09:55 Oxygen Flow Rate 0 07/19/24 09:55 Pain Level 9 07/19/24 10:05 Medical Decision Making 78-year-old male comes in with nontraumatic right hip pain for 2 weeks. He states he has arthritis in his left hip and is due to possibly had a replacement in September, has had some intermittent issues with the right hip as well. He denies any fevers or chills, no leg swelling or calf pain. He is well-appearing on exam in no distress. He has reproducible tenderness over the right lateral hip over the greater trochanter. There is no palpable deformities. There is no warmth or erythema. I suspect bursitis versus arthritis, will treat with a lidocaine patch and obtain x-ray and reassess. There is no findings on exam or history to suggest entities such as septic joint. Patient stable, feels mildly better with lidocaine patch. X-ray shows no acute findings, has degenerative joint and lumbar disease. Discussed results with him and I do suspect he could have arthritis or bursitis in the hip givenhe is on anticoagulation Put him on prednisone as he cannot take oral NSAIDs. 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) Hyperlipidemia (Chronic) Hypertension (Chronic) Osteoarthritis of left knee (Chronic) Steroid injection: 12/16/2020 Arthritis of left hip (Chronic) POCUS injection: 06/15/2024; 11/30/2023 Trochanteric bursitis, left hip (Chronic) Steroid injection: 12/20/2023 Obesity (Chronic) Insomnia (Chronic) Presbycusis of both ears (Chronic) BPH w urinary obs/LUTS (Chronic) Macular degeneration of both eyes (Chronic) Medical History (Updated 07/19/24 @ 11:34 by Alexander Ortega MD) Kidney stone Surgical History (Updated 05/25/24 @ 06:35 by Nyasia Osborne NP) S/P cardiac catheterization with stent placement S/P gastric bypass (~1986) S/P routine circumcision (~2019) Family History (Updated 05/25/24 @ 09:44 by Frances Joshi) Mother Dementia Diabetes Father Diabetes Heart disease Hypertension Stroke Sister Dementia Brother No problems noted. Son Asthma Maternal Grandmother Dementia Maternal Grandfather No problems noted. Paternal Grandmother No problems noted. Paternal Grandfather No problems noted. Social History (Updated 05/26/24 @ 09:06 by Frances Joshi) Smoking/Tobacco Use Status: Former Tobacco Use tobacco type: cigarettes Quit Date: 02/08/82 Pack-years: 36 Tobacco: How many years used: 24 Quit status: quit date established Second Hand Exposure: Yes Smoking risk assessment performed?: Yes Alcohol Intake: former Drug use: Never Substance use type: does not use Counseling given: No Adopted: No Household members: spouse Housing: house Number of Children: 2 number of grandchildren: 2 Communication Needs: Hard of Hearing and Corrective Lenses Education Level: middle school Details: 8th Do you need help understanding health information?: Always 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 Sexually active: No Do you think of yourself as: straight/heterosexual Current gender identity: male What is your relationship status?: How often do you talk on the phone with friends or family?: twice per week How often do you get together with friends or relatives?: once per week How often do you attend yazidism or jehovah's witness services?: decline to answer Do you belong to any clubs or organized social groups?: no Panel score (0-1 are the most socially isolated patients): 2 NHANES result reviewed/action taken: Yes What type of physical activity do you participate in: none Frequency: does not exercise Chandrika/Orthodoxy: Non roman catholic Special chandrika needs: No Seatbelt use: always Drive intox or ride w/intox test driver: No Firearms in home: Yes Firearms unloaded and locked: Yes Do you feel safe at home: Yes Do you feel safe in your relationship?: Yes Victim of physical abuse: No Victim of emotional abuse: No Victim of sexual abuse: No Would you like helpful sources: No
--- NOTE | 2024-07-19 10:53 | DI.RAD_ITS ---
Exam(s) XR HIP RT COMPLETE AP PELVIS EXAM: XR HIP RT COMPLETE AP PELVIS CLINICAL HISTORY: right hip pain. TECHNIQUE: 2D digital imaging was performed of the right hip. Two images were obtained. AP pelvis a nd lateral right hip views were obtained. COMPARISON: CR XR HIP RT COMPLETE AP PELVIS from 12/16/2020 CR XR HIP PELVIS ADULT BL from 08/09/2023 FINDINGS: BONES: No acute fracture is present. No bony destructive lesion is seen. JOINTS: No dislocation present. Degenerative changes are seen in the visualized lower lumbar spine. There also degenerative changes seen in the hips bilaterally which are mild. The sacroiliac joints a nd symphysis pubis are intact. SOFT TISSUE: Normal. IMPRESSION: No acute fracture or dislocation. DATA REPOSITORY: RADIATION DOSE DELIVERED:
[2024-07-19] MEDS: Lidocaine 5% Patch 1 PATCH TP (11:08)
== END 2024-07-19 11:52 | disposition home or self-care (01) ==
PROVIDERS: Emergency Provider Emergency Medicine; PCP Nurse Practitioner Family
DX: M25.551 Pain in right hip (principal); E11.9 Type 2 diabetes mellitus without complications; I10 Essential (primary) hypertension; E78.5 Hyperlipidemia, unspecified; I48.0 Paroxysmal atrial fibrillation; Z98.84 Bariatric surgery status; Z79.01 Long term (current) use of anticoagulants; Z79.85 Long-term (current) use of injectable non-insulin antidiabetic drugs; Z95.5 Presence of coronary angioplasty implant and graft; Z87.891 Personal history of nicotine dependence
CPT/HCPCS: 99283; 73502

== ENCOUNTER → 2024-07-28 08:16 | Outpatient (BNVA) | payer MEDICARE, BC, SELFPAY | PROVIDERS: PCP Nurse Practitioner Family; Referring Provider Nurse Practitioner Family; Visit Provider Physician Assistant | DX: M16.11 Unilateral primary osteoarthritis, right hip (principal); M25.551 Pain in right hip | CPT/HCPCS: 20611; 99213; J1010 ==

== ENCOUNTER → 2024-08-18 07:48 | Outpatient (BNVA) | payer MEDICARE, BC, SELFPAY | PROVIDERS: PCP Nurse Practitioner Family; Referring Provider Nurse Practitioner Family; Visit Provider Physician Assistant | DX: M70.61 Trochanteric bursitis, right hip (principal) | CPT/HCPCS: 20610; J1010 ==

== ENCOUNTER 2024-08-23 19:03 | Outpatient (REF) | payer MEDICARE, BC, SELFPAY ==
[2024-08-23 14:11] LABS: Anion Gap 10.6 mmol/L (3-11); BUN 17 mg/dL (7-18); CO2 26.4 mmol/L (21.0-32.0); Calcium 8.8 mg/dL (8.5-10.1); Chloride 102 mmol/L (98-107); Estimated GFR 90.02 (mL/min/1.73m2); Glucose 188 mg/dL (74-106); Potassium 4.0 mmol/L (3.5-5.1); Sodium 139 mmol/L (136-145)
[2024-08-23 14:30] LABS: HCT 40.0 % (40.0-50.0); HGB 13.5 g/dL (13.5-17.5); MCH 31.0 pg (27.0-33.0); MCHC 33.8 % (32.0-36.0); MCV 92 fL (80-95); MPV 10.7 fL (8.0-11.0); Platelet Count 187 10^3/uL (130-400); RBC 4.35 10^6/uL (4.36-5.78); RDW 13.1 % (11.8-14.1); RDW-SD 43.9 fL; WBC 7.92 10^3/uL (4.4-10.8)
[2024-08-23 14:55] LABS: Vitamin B12 168 pg/mL (193-986); Vitamin D 25 Total 56 ng/mL (30-100)
[2024-08-23 22:52] LABS: Hemoglobin A1C 7.2 % (<5.7)
[2024-08-24 11:32] LABS: Lab Add On Test DONE
== END 2024-08-23 19:04 | disposition home or self-care (01) ==
LOC: LBN 19:03
PROVIDERS: Family Medicine; PCP Nurse Practitioner Family; Visit Provider Student in an Organized Health Care Education/Training Program
DX: E66.01 Morbid (severe) obesity due to excess calories (principal); Z68.41 Body mass index [BMI] 40.0-44.9, adult; E53.8 Deficiency of other specified B group vitamins; E11.29 Type 2 diabetes mellitus with other diabetic kidney complication; R80.9 Proteinuria, unspecified; M16.12 Unilateral primary osteoarthritis, left hip; Z01.818 Encounter for other preprocedural examination
CPT/HCPCS: 80048; 82306; 85027; 82607; 82985; 83036

== ENCOUNTER 2024-08-26 14:42 | Emergency (ER) | payer MEDICARE, BC, SELFPAY ==
[2024-08-26 14:57] VITALS: BP 170/103; PULSE 68; RESP 16; TEMP 36.6; O2SAT 95
--- NOTE | 2024-08-26 15:00 | DI.RAD_ITS ---
Exam(s) XR HIP RT COMPLETE AP PELVIS EXAM: XR HIP RT COMPLETE AP PELVIS CLINICAL HISTORY: right hip pain. TECHNIQUE: 2D digital imaging was performed of the right hip. Three images were obtained. AP pelvis and lateral right hip views were obtained. COMPARISON: CR XR HIP RT COMPLETE AP PELVIS from 07/19/2024 FINDINGS: BONES: No acute fracture is present. No bony destructive lesion is seen. JOINTS: No dislocation present. Degenerative changes are seen in the lower visualized lumbar spine. SOFT TISSUE: Normal. IMPRESSION: 1. No acute fracture or dislocation. 2. The preliminary [facility] report was reviewed. DATA REPOSITORY: RADIATION DOSE DELIVERED:
--- NOTE | 2024-08-26 15:57 | W.ED.GENAD ---
Discharge Plan Disposition Patient Disposition: Home Condition: Stable Discharge Details Clinical Impression: Acute right hip pain Primary Care Provider: Nyasia Osborne ED Provider: Nazia Lema Home Meds and New Rx's Prescriptions: New methocarbamol 750 mg tablet 750 mg PO TID Qty: 30 0RF diclofenac sodium [Voltaren Arthritis Pain] 1 % gel 4 g topical QID Qty: 50 0RF Rx Instructions: apply to area of pain No Action cholecalciferol (vitamin D3) 125 mcg (5,000 unit) capsule 125 mcg PO DAILY metformin 1,000 mg tablet 1,000 mg PO BID rosuvastatin 20 mg tablet 20 mg PO DAILY finasteride 5 mg tablet 5 mg PO DAILY metoprolol succinate 25 mg tablet extended release 24 hr 25 mg PO DAILY Qty: 90 3RF trospium 20 mg tablet 20 mg PO DAILY PreserVision AREDS-2 250-90-40-1 mg capsule 1 tab PO QAM AND QHS magnesium oxide 500 mg capsule 500 mg PO DAILY tamsulosin 0.4 mg capsule 0.4 mg PO BID saw palmetto 450 mg capsule 450 mg PO DAILY melatonin 10 mg capsule 10 mg PO HS PRN acetaminophen [Tylenol Arthritis Pain] 650 mg tablet extended release 650 mg PO Q8H furosemide 20 mg tablet 20 mg PO DAILY PRN (Reason: edema) Qty: 20 0RF losartan 100 mg tablet 100 mg PO DAILY Qty: 30 2RF Xarelto 20 mg tablet 20 mg PO DAILY Rx Instructions: must administer with evening meal glimepiride 2 mg tablet 2 mg PO DAILY Qty: 30 1RF mecobalamin (vitamin B12) 1,000 mcg tablet,disintegrating 1,000 mcg sublingual DAILY Rx Instructions: place tablet under tongue and allow to dissolve for at least30 secs before swallowing potassium chloride 20 mEq/15 mL liquid 20 meq PO DAILY Qty: 450 0RF lidocaine 5 % adhesive patch,medicated 1 patch topical DAILY Qty: 30 0RF Rx Instructions: leave on most painful area for up to 12 hrs Discharge Instructions Additional Instructions: Symptoms today could be secondary to your chronic osteoarthritis, iliotibial band syndrome or possible sciatica. All of these are essentially treated the same. Will start you on some medication, continue the Tylenol and please follow-up with your primary care if symptoms are not improving. HPI General Date/Time Provider Initiated Documentation: 08/26/24 15:06. Limitations to Documentation: no limitations. Information obtained by: patient and old records reviewed. HPI Narrative: 78-year-old gentleman with past medical history of obesity, diabetes, atrial flutter, CAD presents for evaluation of ongoing right hip pain. He reports that he saw his orthopedic doctor about 10 days ago and got an injection into that hip. He reports that the symptoms at that time resolved, but have recurred. He reports that this is a slightly different type of pain that he normally experiences in his hip. He localizes the pain to the outer side of his thigh with radiation up into his buttocks and lower back. There is no numbness or tingling. No trauma associated with this. He has been taking Tylenol extra strength for pain relief. Related Data Home Medications ?Medication ?Instructions ?Recorded ?Confirmed cholecalciferol (vitamin D3) 125 125 mcg PO DAILY 12/10/20 08/26/24 mcg (5,000 unit) capsule metformin 1,000 mg tablet 1,000 mg PO BID 12/10/20 08/26/24 rivaroxaban 20 mg tablet (Xarelto) 20 mg PO DAILY 09/17/21 08/26/24 rosuvastatin 20 mg tablet 20 mg PO DAILY 01/26/22 08/26/24 finasteride 5 mg tablet 5 mg PO DAILY 12/03/22 08/26/24 potassium chloride 20 mEq/15 mL 20 meq (15 mL) PO DAILY #450 mL 05/20/23 08/26/24 oral liquid magnesium oxide 500 mg capsule 500 mg PO DAILY 05/24/24 08/26/24 melatonin 10 mg capsule 10 mg PO HS PRN 05/24/24 08/26/24 metoprolol succinate 25 mg 25 mg PO DAILY #90 tabs 05/24/24 08/26/24 tablet,extended release 24 hr saw palmetto 450 mg capsule 450 mg PO DAILY 05/24/24 08/26/24 tamsulosin 0.4 mg capsule 0.4 mg PO BID 05/24/24 08/26/24 trospium 20 mg tablet 20 mg PO DAILY 05/24/24 08/26/24 vit C 250 mg-vit E 90 mg-zinc 40 1 tab PO QAM AND QHS 05/24/24 08/26/24 mg-copper 1 [id number]-[id number] capsule (PreserVision AREDS-2) lidocaine 5 % topical patch 1 patch topical DAILY #30 ea 07/19/24 08/26/24 acetaminophen 650 mg 650 mg PO Q8H 08/23/24 08/26/24 tablet,extended release (Tylenol Arthritis Pain) furosemide 20 mg tablet 20 mg PO DAILY PRN edema #20 tabs 08/23/24 08/26/24 losartan 100 mg tablet 100 mg PO DAILY #30 tabs 08/23/24 08/26/24 glimepiride 2 mg tablet 2 mg PO DAILY #30 tabs 08/24/24 08/26/24 mecobalamin (vitamin B12) 1,000 1,000 mcg sublingual DAILY 08/24/24 08/26/24 mcg disintegrating tablet,sublingual diclofenac sodium 1 % topical gel 4 g topical QID #50 grams 08/26/24 (Voltaren Arthritis Pain) methocarbamol 750 mg tablet 750 mg PO TID #30 tabs 08/26/24 Previous Rx's ?Medication ?Instructions ?Recorded potassium chloride 20 mEq/15 mL 20 meq (15 mL) PO DAILY #450 mL 05/20/23 oral liquid metoprolol succinate 25 mg 25 mg PO DAILY #90 tabs 05/24/24 tablet,extended release 24 hr lidocaine 5 % topical patch 1 patch topical DAILY #30 ea 07/19/24 furosemide 20 mg tablet 20 mg PO DAILY PRN edema #20 tabs 08/23/24 losartan 100 mg tablet 100 mg PO DAILY #30 tabs 08/23/24 glimepiride 2 mg tablet 2 mg PO DAILY #30 tabs 08/24/24 diclofenac sodium 1 % topical gel 4 g topical QID #50 grams 08/26/24 (Voltaren Arthritis Pain) methocarbamol 750 mg tablet 750 mg PO TID #30 tabs 08/26/24 Allergies Allergy/AdvReac Type Severity Reaction Status Date / Time lisinopril AdvReac Mild cough Verified 08/26/24 15:07 ibuprofen AdvReac Other (See Verified 08/26/24 15:07 Comment) trazodone AdvReac dry mouth Verified 08/26/24 15:07 General Stated Complaint: Orthopedic TETE: 4 Exam Narrative Exam Narrative: Review of Systems: All systems reviewed & are unremarkable except as noted in HPI and below Well-developed obese NCAT RRR Unlabored respiratory effort Extremities w/o deformity, tenderness along the IT band of the right thigh, no hip tenderness No midline back spine tenderness step-off or deformity no focal neurologic deficits Course Vital Signs Vital signs: Vital Signs Temperature 36.6 C 08/26/24 14:57 Pulse 68 08/26/24 14:57 Respiratory Rate 16 08/26/24 14:57 Blood Pressure 170/103 H 08/26/24 14:57 Pulse Oximetry 95 08/26/24 14:57 Temperature 36.6 C 08/26/24 14:57 Temperature Source Oral 08/26/24 14:57 Pulse 68 08/26/24 14:57 Respiratory Rate 16 08/26/24 14:57 Blood Pressure 170/103 H 08/26/24 14:57 Blood Pressure Position Sitting 08/26/24 14:57 Pulse Oximetry 95 08/26/24 14:57 Oxygen Delivery Method Room Air 08/26/24 14:57 Oxygen Flow Rate 0 08/26/24 14:57 Pain Level 9 08/26/24 14:57 Medical Decision Making Emergent evaluation of right hip pain. Initial differential includes IT band inflammation, osteoarthritis, sciatica. X-ray obtained and there is not an acute bony process appreciated in the hip. Patient is followed by orthopedics and does receive injections into hips. Based on clinical examination, I do not suspect a septic arthritis or other infectious etiology from recent injection. Patient's medical comorbidities limit anti-inflammatory use. I have prescribed Robaxin and Voltaren gel to use topically. I recommend continued use of Tylenol. He was given a single dose of morphine in the emergency department. Recommend close follow-up with orthopedics if symptoms persist. 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) Hyperlipidemia (Chronic) Hypertension (Chronic) Osteoarthritis of left knee (Chronic) Steroid injection: 12/16/2020 Arthritis of left hip (Chronic) POCUS injection: 06/15/2024; 11/30/2023 Trochanteric bursitis, left hip (Chronic) Steroid injection: 12/20/2023 Insomnia (Chronic) Presbycusis of both ears (Chronic) BPH w urinary obs/LUTS (Chronic) Macular degeneration of both eyes (Chronic) Medical History (Updated 08/26/24 @ 15:56 by Nazia Lema MD) Kidney stone Surgical History (Updated 08/23/24 @ 11:05 by Rocio Grajeda MD) S/P cardiac catheterization (2021) with stent placement S/P gastric bypass (~1986) S/P routine circumcision (~2019) Family History (Updated 05/25/24 @ 09:44 by Frances Joshi) Mother Dementia Diabetes Father Diabetes Heart disease Hypertension Stroke Sister Dementia Brother No problems noted. Son Asthma Maternal Grandmother Dementia Maternal Grandfather No problems noted. Paternal Grandmother No problems noted. Paternal Grandfather No problems noted. Social History (Updated 05/26/24 @ 09:06 by Frances Joshi) Smoking/Tobacco Use Status: Former Tobacco Use tobacco type: cigarettes Quit Date: 02/08/82 Pack-years: 36 Tobacco: How many years used: 24 Quit status: quit date established Second Hand Exposure: Yes Smoking risk assessment performed?: Yes Alcohol Intake: former Drug use: Never Substance use type: does not use Counseling given: No Adopted: No Household members: spouse Housing: house Number of Children: 2 number of grandchildren: 2 Communication Needs: Hard of Hearing and Corrective Lenses Education Level: middle school Details: 8th Do you need help understanding health information?: Always 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 Sexually active: No Do you think of yourself as: straight/heterosexual Current gender identity: male What is your relationship status?: How often do you talk on the phone with friends or family?: twice per week How often do you get together with friends or relatives?: once per week How often do you attend orthodox or jehovah's witness services?: decline to answer Do you belong to any clubs or organized social groups?: no Panel score (0-1 are the most socially isolated patients): 2 NHANES result reviewed/action taken: Yes What type of physical activity do you participate in: none Frequency: does not exercise Chandrika/Church: Non anglican Special chandrika needs: No Seatbelt use: always Drive intox or ride w/intox sales route driver helper: No Firearms in home: Yes Firearms unloaded and locked: Yes Do you feel safe at home: Yes Do you feel safe in your relationship?: Yes Victim of physical abuse: No Victim of emotional abuse: No Victim of sexual abuse: No Would you like helpful sources: No
[2024-08-26] MEDS: Methocarbamol 500 MG TAB 1000 MG PO (16:03)
[2024-08-26] MEDS: MORPHine IR 15 MG TAB PO (16:03)
--- NOTE | 2024-08-26 16:40 | DI.[facility]_ITS ---
PROCEDURE INFORMATION: Exam: XR Right Hip Exam date and time: 08/26/2024 3:40 PM Age: 78 years old Clinical indication: Other: Right hip pain TECHNIQUE: Imaging protocol: Radiologic exam of the right hip. Views: 2 or 3 views hip with pelvis when performed. COMPARISON: CR XR HIP RT COMPLETE AP PELVIS 07/19/2024 10:46 AM FINDINGS: Bones/joints: Degenerative arthritis in the visualized lumbar spine. Medial compartment narrowing of the right hip joint. Soft tissues: Unremarkable. IMPRESSION: No acute findings Dictated and Authenticated by: Daija Rivas MD. Orderin Torey Canales MD
== END 2024-08-26 16:17 | disposition home or self-care (01) ==
PROVIDERS: Emergency Provider Emergency Medicine; PCP Nurse Practitioner Family
DX: M25.551 Pain in right hip (principal); E11.9 Type 2 diabetes mellitus without complications; I48.92 Unspecified atrial flutter; I25.10 Atherosclerotic heart disease of native coronary artery without angina pectoris; Z79.01 Long term (current) use of anticoagulants; Z79.84 Long term (current) use of oral hypoglycemic drugs; Z98.84 Bariatric surgery status; Z87.891 Personal history of nicotine dependence
CPT/HCPCS: 99283; 73502

== ENCOUNTER → 2024-08-31 10:45 | Outpatient (BNVA) | payer MEDICARE, BC, SELFPAY | PROVIDERS: PCP Nurse Practitioner Family; Visit Provider Internal Medicine Cardiovascular Disease | DX: I25.10 Atherosclerotic heart disease of native coronary artery without angina pectoris (principal); I48.92 Unspecified atrial flutter | CPT/HCPCS: 99214 ==

== ENCOUNTER 2024-09-11 13:15 | Outpatient (CLI) | payer MEDICARE, BC, SELFPAY ==
--- NOTE | 2024-09-11 11:41 | DI.RAD_ITS ---
Exam(s) XR PELVIS AP EXAM: XR PELVIS AP CLINICAL HISTORY: left hip DJD. TECHNIQUE: 2D digital imaging was performed.One images were obtained. COMPARISON: CR XR HIP PELVIS ADULT BL from 08/09/[address] PELVIC WO from 08/10/2023 CT,NM,TMT NM MPI REST STRESS GRP from 03/13/2024 CR XR HIP RT COMPLETE AP PELVIS from 07/19/2024 CR,XR XR HIP RT COMPLETE AP PELVIS from 08/26/2024 FINDINGS: BONES: No acute fracture is present. No bony destructive lesion is seen. JOINTS: No dislocation present. There are minimal degenerative changes seen in the hips bilaterally. SOFT TISSUE: Normal. IMPRESSION: Minimal degenerative changes seen in the hips. DATA REPOSITORY: RADIATION DOSE DELIVERED:
== END 2024-09-11 13:16 | disposition home or self-care (01) ==
LOC: DIORS 13:15
PROVIDERS: PCP Nurse Practitioner Family; Referring Provider Nurse Practitioner Family; Visit Provider Physician Assistant
DX: Z01.818 Encounter for other preprocedural examination (principal); M16.12 Unilateral primary osteoarthritis, left hip
CPT/HCPCS: 99024; 72170

== ENCOUNTER 2024-09-19 09:37 | Day surgery (SDC) | payer MEDICARE, BC, SELFPAY ==
[2024-09-19] VITALS (21 sets, daily range): BP systolic 90–187; BP diastolic 50–106; PULSE 52–81; RESP 13–22; TEMP 35.9–37.1; O2SAT 93–98; BMI 44.4
--- NOTE | 2024-09-19 07:21 | PDOC.DSDIS_ITS ---
Date of service: 09/19/24 Discharge Plan Disposition Patient Disposition: Home Condition: Good Discharge Details Reason For Visit: Left hip DJD Attending Provider: Wade Acevedo Primary Care Provider: Nyasia Osborne Home Meds and New Rx's Prescriptions: New acetaminophen 500 mg tablet 1,000 mg PO Q8H PRN Qty: 90 0RF Rx Instructions: Take two tablets up to every 8 hours as needed for pain docusate sodium [Colace] 100 mg capsule 100 mg PO BID Qty: 28 0RF meloxicam 15 mg tablet 15 mg PO DAILY Qty: 30 1RF Rx Instructions: Take one tablet daily for pain and inflammation pantoprazole 40 mg tablet,delayed release (DR/EC) 40 mg PO DAILY Qty: 14 0RF Rx Instructions: Take one tablet once daily oxycodone 5 mg tablet 5 mg PO Q6H PRNQty: 12 0RF Rx Instructions: Take one tablet up to every 6 hours as needed for severe postoperative pain Continued cholecalciferol (vitamin D3) 125 mcg (5,000 unit) capsule 125 mcg PO DAILY metformin 1,000 mg tablet 1,000 mg PO BID rosuvastatin 20 mg tablet 20 mg PO DAILY finasteride 5 mg tablet 5 mg PO DAILY Xarelto 20 mg tablet 20 mg PO DAILY Qty: 90 3RF Rx Instructions: must administer with evening meal metoprolol succinate 25 mg tablet extended release 24 hr 25 mg PO DAILY Qty: 90 3RF trospium 20 mg tablet 20 mg PO DAILY PreserVision AREDS-2 250-90-40-1 mg capsule 1 tab PO QAM AND QHS magnesium oxide 500 mg capsule 500 mg PO DAILY tamsulosin 0.4 mg capsule 0.4 mg PO BID saw palmetto 450 mg capsule 450 mg PO DAILY melatonin 10 mg capsule 10 mg PO HS PRN furosemide 20 mg tablet 20 mg PO DAILY PRN (Reason: edema) Qty: 20 0RF losartan 100 mg tablet 100 mg PO DAILY Qty: 30 2RF glimepiride 2 mg tablet 2 mg PO DAILY Qty: 30 1RF mecobalamin (vitamin B12) 1,000 mcg tablet,disintegrating 1,000 mcg sublingual DAILY Rx Instructions: place tablet under tongue and allow to dissolve for at least30 secs before swallowing methocarbamol 750 mg tablet 750 mg PO TID Qty: 30 0RF potassium chloride 20 mEq/15 mL liquid 20 meq PO DAILY Qty: 450 0RF diclofenac sodium [Voltaren Arthritis Pain] 1 % gel 4 g topical QID Qty: 50 0RF Rx Instructions: apply to area of pain lidocaine 5 % adhesive patch,medicated 1 patch topical DAILY Qty: 30 0RF Rx Instructions: leave on most painful area for up to 12 hrs Discontinued acetaminophen [Tylenol Arthritis Pain] 650 mg tablet extended release 650 mg PO Q8H Discharge Instructions Additional Instructions: Total Hip Discharge Instructions Activity: The most important activity is to walk. You should try to take short walks a few times a day. You have no restrictions on movement or positioning, but do not try to force what you do. You will find some stiffness and weakness with hip flexion (lifting your knee). Do not try to strengthen this too early, continue to practice walking and stairs and this will come. - Outpatient physical therapy can be helpful to help return you to a normal gait and improve your flexibility and strength. This can start around 2 weeks. For some patients, it?s not necessary. Usually this is determined at the time of discharge or at the first post-operative visit. - You should wear the STEPHON hose on both legs for 2 weeks. Dressing: Keep the surgical dressing in place for at least one week. After the first week it may be removed and replace with light gauze and tape or nothing. It may get wet after 3 days but avoid soaking the dressing. If it gets wet, just lightly pat dry. It is important to always keep some gauze between skin folds, especially when you are sitting. Spend some time with the wound exposed when you are lying flat as the incision does wrinkle onto itself. Medications: - You should take Tylenol and an anti-inflammatory meloxicam as your primary pain control medications. If the meoxicam is too expensive or not covered, please call the office for another alternative (Advil/Ibuprofen or Naproxen/Aleve). - You have been prescribed a stronger pain medication Oxycodone for breakthrough pain, take as needed as prescribed. - You have also been prescribed a stomach acid reduction agent Pantoprozole to help reduce stomach acid and reflux. - You will resume your anticoagulation, Rivaroxaban, for DVT prevention unless instructed otherwise. - If you have constipation you should take Colace (which has been prescribed) or Miralax (which is available [id number]). It takes most people 3-4 days to have a bowel movement. Follow-up: 2 weeks If you have any acute concerns or questions, please do not hesitate to contact the office at [phone]. You may contact Dr. Acevedo with any questions after hours through the hospital at [phone] or on his cell phone at [phone]. Referrals: Wade Acevedo MD [ [facility] STAFF PHYSICIAN, Orthopaedic Surgical] Equipment/Supplies: Walker Activity:: Elevate Remove Dressings/Wound Care:: Do Not Remove Shower/Bathe:: Cover Diet:: As Tolerated Discharge Orders Discharge Orders: Discharge Order (Routine); Ordered 09/19/24 Ordered By: Saadia Walker
[2024-09-19] MEDS: Celecoxib 200 MG CAP 400 MG PO (10:43)
[2024-09-19] MEDS: Acetaminophen 500 MG TAB 1000 MG PO (10:43)
[2024-09-19] MEDS: Lactated Ringers 1,000 ML 80 ML IV (10:43)
--- NOTE | 2024-09-19 10:47 | W.ANESPRE ---
General Info Date of Service Date Performed: 09/19/24 Height: 5 ft 7 in Weight: 128.6 kg Body Mass Index (BMI): 44.4 Surgical Procedure: Operation Date: 09/19/24 13:05 Proposed Procedure Side Surgeon p Hip Total Hip Anterior Left Wade Acevedo MD Meds Allergies and Home Medications Allergies Allergy/AdvReac Type Severity Reaction Status Date / Time lisinopril AdvReac Mild cough Verified 09/15/24 08:31 ibuprofen AdvReac Other (See Verified 09/15/24 08:31 Comment) trazodone AdvReac dry mouth Verified 09/15/24 08:31 Home Medication ?Medication ?Instructions ?Recorded cholecalciferol (vitamin D3) 125 125 mcg PO DAILY 12/10/20 mcg (5,000 unit) capsule metformin 1,000 mg tablet 1,000 mg PO BID 12/10/20 rosuvastatin 20 mg tablet 20 mg PO DAILY 01/26/22 finasteride 5 mg tablet 5 mg PO DAILY 12/03/22 potassium chloride 20 mEq/15 mL 20 meq (15 mL) PO DAILY #450 mL 05/20/23 oral liquid magnesium oxide 500 mg capsule 500 mg PO DAILY 05/24/24 melatonin 10 mg capsule 10 mg PO HS PRN 05/24/24 metoprolol succinate 25 mg 25 mg PO DAILY #90 tabs 05/24/24 tablet,extended release 24 hr saw palmetto 450 mg capsule 450 mg PO DAILY 05/24/24 tamsulosin 0.4 mg capsule 0.4 mg PO BID 05/24/24 trospium 20 mg tablet 20 mg PO DAILY 05/24/24 vit C 250 mg-vit E 90 mg-zinc 40 1 tab PO QAM AND QHS 05/24/24 mg-copper 1 [id number] capsule (PreserVision AREDS-2) lidocaine 5 % topical patch 1 patch topical DAILY #30 ea 07/19/24 furosemide 20 mg tablet 20 mg PO DAILY PRN edema #20 tabs 08/23/24 losartan 100 mg tablet 100 mg PO DAILY #30 tabs 08/23/24 glimepiride 2 mg tablet 2 mg PO DAILY #30 tabs 08/24/24 mecobalamin (vitamin B12) 1,000 1,000 mcg sublingual DAILY 08/24/24 mcg disintegrating tablet,sublingual diclofenac sodium 1 % topical gel 4 g topical QID #50 grams 08/26/24 (Voltaren Arthritis Pain) rivaroxaban 20 mg tablet (Xarelto) 20 mg PO DAILY #90 tabs 08/31/24 methocarbamol 750 mg tablet 750 mg PO TID #30 tabs 09/07/24 acetaminophen 500 mg tablet 1,000 mg (2 x 500 mg) PO Q8H PRN 09/19/24 pain #90 tabs docusate sodium 100 mg capsule 100 mg PO BID #28 caps 09/19/24 (Colace) meloxicam 15 mg tablet 15 mg PO DAILY #30 tabs 09/19/24 oxycodone 5 mg tablet 5 mg PO Q6H PRN #12 tabs 09/19/24 pantoprazole 40 mg tablet,delayed 40 mg PO DAILY #14 tabs 09/19/24 release Current Visit Medications: Current Medications Generic Name Dose Route Start Last Admin Trade Name Freq PRN Reason Stop Dose Admin Acetaminophen 1,000 mg 09/19/24 06:00 09/19/24 10:43 Acetaminophen 500 Mg Tab PO 09/19/24 23:59 1,000 mg PREOP BRYSON Administration Celecoxib 400 mg 09/19/24 06:00 09/19/24 10:43 Celecoxib 200 Mg Cap PO 09/19/24 23:59 400 mg PREOP BRYSON Administration Hydromorphone HCl 0.5 mg 09/19/24 07:18 Hydromorphone 2 Mg/Ml Syr IVP 10/19/24 07:17 Q2H PRN PRN Ringer's Solution 1,000 mls @ 80 mls/hr 09/19/24 06:00 09/19/24 10:43 IV 09/19/24 23:59 80 mls/hr INFUSION BRYSON Administration Tranexamic Acid/Sodium Chloride 1,000 mg in 100 mls @ 600 mls/hr 09/19/24 06:00 IVPB 09/19/24 23:59 PREOP BRYSON Cefazolin Sodium 3,000 mg/ 100 mls @ 200 mls/hr 09/19/24 06:00 Sodium Chloride IV 09/19/24 23:59 PREOP BRYSON Cefazolin Sodium/Dextrose 1 gm in 50 mls @ 100 mls/hr 09/19/24 08:00 Ancef Duplex IVPB 09/20/24 00:29 Q8H BRYSON IV Miscellaneous Supplies 1 each 09/19/24 06:00 Iv Access IV 09/19/24 23:59 DIRECTED BRYSON Oxycodone HCl 0 mg 09/19/24 07:18 Oxycodone 5 Mg Tab PO 10/19/24 07:17 Q3H PRN PRN Pain Sodium Chloride 0 ml 09/19/24 06:00 Normal Saline Flush 10 Ml Syr IV 09/19/24 23:59 PRN PRN Sodium Chloride 0 ml 09/19/24 06:00 Normal Saline 10 Ml Vial IJ 09/19/24 23:59 DIRECTED PRN Sterile Water 0 ml 09/19/24 06:00 Water,Injection,Sterile 10 Ml Vial IJ 09/19/24 23:59 DIRECTED PRN Tranexamic Acid 1,300 mg 09/19/24 07:18 Tranexamic Acid 650 Mg Tab PO 10/19/24 07:17 ONCE PRN postoperative PFSH Active Problems Active Problems: Problem Status Onset Code History of total left hip arthroplasty Acute 09/19/24 Z96.642 Acute right hip pain Acute M25.551 Morbid obesity with body mass index (BMI) of 40.0 to 44.9 in adult Acute E66.01, Z68.41 B12 deficiency Acute E53.8 Trochanteric bursitis, right hip Acute M70.61 Osteoarthritis of right hip Acute M16.11 Physical deconditioning Acute R53.81 Coronary artery disease Chronic I25.10 Paroxysmal atrial flutter Chronic I48.92 BRAXTON (obstructive sleep apnea) Chronic G47.33 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, R80.9 Hyperlipidemia Chronic E78.5 Hypertension Chronic I10 Osteoarthritis of left knee Chronic M17.12 Trochanteric bursitis, left hip Chronic M70.62 Insomnia Chronic G47.00 Presbycusis of both ears Chronic H91.13 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, N13.8 Macular degeneration of both eyes Chronic H35.30 Medical History Medical History Kidney stone Surgical History Surgical History S/P cardiac catheterization (2021) with stent placement S/P gastric bypass (~1986) S/P routine circumcision (~2019) Tobacco Smoking/Tobacco Use Status: Former Tobacco Use Passive smoking exposure: Yes Second hand exposure: Yes Alcohol Alcohol Intake: former Substance Use Substance use: Never Substance use type: does not use Vital Signs and Lab Results Vital Signs Most Recent Vital Signs in EMR: Most Recent Vital Signs Temp Pulse Resp BP Pulse Ox 37.1 C 71 16 133/65 97 09/19/24 10:10 09/19/24 10:10 09/19/24 10:10 09/19/24 10:10 09/19/24 10:10 Point of Care Results Point of Care Results: Finger Stick Blood Glucose 128 09/19/24 10:08 Lab Results Complete Blood Count: WBC, (4.4-10.8) 7.92 10^3/uL 08/23/24, 11:40 RBC, (4.36-5.78) 4.35 10^6/uL L 08/23/24, 11:40 Hgb, (13.5-17.5) 13.5 g/dL 08/23/24, 11:40 Hct, (40.0-50.0) 40.0 % 08/23/24, 11:40 Plt Count, (130-400) 187 10^3/uL 08/23/24, 11:40 Complete Metabolic Panel: Sodium, (136-145) 139 mmol/L 08/23/24, 11:40 Potassium, (3.5-5.1) 4.0 mmol/L 08/23/24, 11:40 Chloride, (98-107) 102 mmol/L 08/23/24, 11:40 Carbon Dioxide, (21.0-32.0) 26.4 mmol/L 08/23/24, 11:40 BUN, (7-18) 17 mg/dL 08/23/24, 11:40 Creatinine, (0.70-1.30) 0.8 mg/dL 08/23/24, 11:40 Est GFR (CKD-EPI 2020), (mL/min/1.73m2) 90.02 08/23/24, 11:40 Calcium, (8.5-10.1) 8.8 mg/dL 08/23/24, 11:40 Glucose, (74-106) 188 mg/dL H 08/23/24, 11:40 Hemoglobin A1c, (<5.7) 7.2 % H 08/23/24, 11:40 Imaging and Studies Imaging and Studies Study information below may be from another EMR and interpreted by another provider. Please see original notes in EMR for more complete details. Stress Test Summary: 03/13/24 Stress ECG Conclusion 1. Resting electrocardiogram showed atrial fibrillation, right axis, right bundle branch block 2. Patient underwent testing using pharmacologic stress with regadenoson 3. Peak heart rate achieved was 76% of maximal predicted for age 4. The electrocardiographic portion of the test was nondiagnostic 5. See MPI report Stress Test Summary [id number] 1 min post Lexiscan [id number]% 3 min post Lexiscan [id number]% 6 min post Lexiscan [id number]% MPI Conclusion Myocardial perfusion is negative for ischemia or significant areas of infarction Ejection fraction is 55%. Wall motion is normal Echocardiogram Summary: 12/16/21 Conclusion Normal left ventricular wall thickness and chamber size. Estimated ejection fraction is 58%. Wall motion is normal The right atrium and right ventricle are not well visualized The left atrium is moderately dilated Aortic valve is sclerotic and trileaflet with trace regurgitation. There is no aortic stenosis Mitral annular calcification. Trace mitral regurgitation Normal tricuspid valve with mild regurgitation. Estimated right ventricular systolic pressure is 31 mmHg Dilated ascending aorta measuring 4.1 cm Anesthesia Assessment and Plan Anesthesia History Personal History: No History of Anesthesia Complications Family History: No Family History of Anesthesia Complications Exercise Tolerance Exercise Tolerance: Metabolic Equivalents<4 Pertinent Negatives Pertinent Negatives: No Symptoms of GERD, No Major Cardiovascular Symptoms or Complaints and No Major Pulmonary Symptoms or Complaints Cardiac & Pulmonary Exam Cardiac Exam: Normal S1/S2 Heart Sounds Pulmonary Exam: Clear Bilateral Breath Sounds Implantable Cardiac Device Does patient have a Pacemaker or an ICD?: No Airway Exam Known Difficult Airway: No Mallampati Class: 2 Mouth Opening: Normal (> 3cm) Thyromental Distance: Greater than 3 cm Neck Range of Motion: Full ROM Neck Circumference: Normal Teeth Condition: Normal Dentition and Loose or Chipped (#13 loose, discussed possibility of it becoming more loose or falling out with any airway manipulation, patient aware ) ASA Classification ASA Score: ASA 3 Emergency Case?: No NPO Status NPO Status: NPO Clears >2 hours, Solids >8 hours Anesthesia Plan Resuscitation Status: Full Code Anesthesia Technique: Spinal Anesthesia Airway Planned: Natural Airway Monitors Used: Standard Monitors
[2024-09-19] MEDS: ceFAZolin 3,000 MG in Normal Saline 100 ML 200 MG IV (11:36)
[2024-09-19] MEDS: TRANEXAMIC ACID/SOD. CHL. 1,000 MG/100 ML BAG 600 MG IVPB (11:51)
--- NOTE | 2024-09-19 13:08 | DI.RAD_ITS ---
Exam(s) XR HIP LT IN OR EXAM: XR HIP LT IN OR CLINICAL HISTORY: Arthritis of left hip. TECHNIQUE: 2D and realtime digital imaging was performed. COMPARISON: CR XR PELVIS AP from 09/11/2024 FINDINGS: A hard copy image shows placement of a left hip prosthesis. The alignment appears satisfactory. Please see procedure note for details. Fluoro time: 30.1seconds RADIATION DOSE DELIVERED: Ka,r=8.04 mGy
[2024-09-19] MEDS: fentaNYL 100 MCG/2 ML VIAL IVP ×2 (13:46→13:58)
--- NOTE | 2024-09-19 14:06 | W.ANESPOSTOP ---
Postoperative Evaluation Date, Time and Location Date Performed: 09/19/24 Time Performed: 14:06 Patient Location: PACU Vital Signs Most Recent Imported Vital Signs: Most Recent Vital Signs Temp Pulse Resp BP Pulse Ox 36.2 C L 71 16 133/65 97 09/19/24 13:44 09/19/24 10:10 09/19/24 10:10 09/19/24 10:10 09/19/24 10:10 Pain Score Most Recent Pain Score: Most Recent Pain Score Pain Level 5 09/19/24 13:44 Assessment Mental Status: Awake (Alert & Oriented to Patient Baseline) Airway and Respiratory Function: Patent airway with normal (patient baseline) respiratory exam Cardiovascular Function: Hemodynamically Stable Hydration Status: Adequately Hydrated Nausea & Vomiting: No Nausea or Vomiting Pain: Pain is tolerable per patient Peripheral Nerve Block: Patient did not receive a nerve block
[2024-09-19] MEDS: Tranexamic Acid 650 MG TAB 1300 MG PO (14:46)
--- NOTE | 2024-09-19 14:51 | W.PM.OP ---
Operative Note Operative Note PRE-OP DIAGNOSIS: Left Hip Osteoarthritis POST-OP DIAGNOSIS: same PROCEDURE: Left Anterior Total Hip Arthroplasty with Intraoperative Navigation SURGEON: Wade Acevedo MARKET RESEARCH LEAD: Saadia Walker ANESTHESIA TYPE: Spinal Refer to Anesthesia Record ESTIMATED BLOOD LOSS: 200 PATHOLOGY: none sent TOURNIQUET TIME: 0 COMPLICATIONS: None Patient was transported to: PACU Patient's condition: stable Implants: 1. Depuy Powell Acetabular Component, 58mm 2. Depuy Acetabular Liner, [id number] 3. Depuy Actis High Offset Collared Femoral Stem, Size 4 4. Depuy Altrx Ceramic Femoral Head, Size 36+1.5mm Indications: I have seen Richard in clinic for symptoms of hip arthritis, confirmed with radiographic findings. He has exhausted nonoperative methods and was having significant limitations in daily function and desired better function and less pain. I discussed the technical details of a hip replacement. I explained the risks of the procedure to include, but not limited to, bleeding, infection, pain, stiffness, fracture, damage to nerves and vessels, damage to muscles and tendons, loosening, instability, leg length inequality, need for repeat procedure, blood clot and cardiopulmonary demise. Despite these risks, Richard elected to proceed. Findings: There was some delamination of cartilage on the femoral head with some fissuring as well. Procedure Description: Richard was greeted in the preoperative holding area where the correct side was identified and marked. The consent was reviewed with the patient and signed. The history and physical was updated. All questions were answered. He was taken back to the operating room. A spinal anesthestic was then administered. The feet were wrapped with cast padding and Coban and then placed into the boot liners and then into the boots. Care was taken to protect the skin and make sure the heels were fully down and the boots were stable. The patient was then positioned onto the HANA table. Both legs were held in a neutral position. SCDs were applied. The patient was then slid down onto a peroneal post. Prophylactic antibiotics in the form of Cefazolin were administered. 1g of Tranxemic Acid was given intravenously within 30 minutes of incision. The left leg was then prepped with Chloraprep and draped in a standard fashion. A second prep with Chloraprep was performed prior to placement of a shower-curtain type drape with Iodine impregnated skin protection. A timeout to confirm correct identity, side and site, procedure, allergies, anesthesia, and medical concerns was performed. An obliquely oriented incision was made starting lateral to the ASIS and running distal over the Tensor Fascia Casandra (TFL) muscle belly toward the fibular head, approximately 10cm. The skin and soft tissue was dissected sharply, through Tre?s fascia, and to the fascia of the TFL. With the fascia and superior border of the IT band identified, the fascia was incised with a new knife just above any perforators from the IT band. The TFL muscle belly was bluntly dissected away from the fascia and moved laterally. The fat between TFL and rectus was identified to ensure the dissection was not within the TFL. Blunt dissection created space between abductors and the capsule and retractor was placed over the lateral femoral neck. The fibers of the rectus femoris tendon were identified and these were freed from the anterior capsule. A second cobra retractor was placed around the medial femoral neck. The TFL was further retracted laterally to show the deep fascia. Careful dissection through this layer identified three main crossing vessels of the lateral femoral circumflex. These were cauterized in multiple locations and then cut without any noticeable bleeding. The TFL was further released bluntly from the deep fascia to expose anterior hip capsule and fat The soft tissue orthopaedic retractor was then placed beneath the TFL and against sartorius and medial soft tissues to protect and retract the soft tissues. A T-capsulotomy was then performed starting at the superior lateral acetabulum and moving distally to the intertrochanteric ridge. These capsular flaps were tagged with a No. 1 Vicryl and elevated from within. The capsular flaps were released to the shoulder of the lateral neck and to the lesser trochanter to give excellent visualization of the proximal femur. A neck osteotomy was performed using an oscillating saw based on preoperative templates. This cut started in the shoulder and of the lateral neck and exited medially. The saw was at all times directed medially to avoid injury to the greater trochanter. Gross traction was applied to the leg and the osteotomy opened. The femoral head was removed with a corkscrew, making sure to protect the TFL on its exit. Traction was released after head removal. This was measured on the back table to determine the starting reamer size. Portions of the rectus obscuring visualization were minimally elevated off the superior acetabulum. An anterior retractor was placed over the anterior wall between capsule and labrum and attached to the Gripper retraction system. There was a notable tear of the labrum with a large displaced fragment. The femur was rotated to 90 degrees and medial capsule was fully released until the lesser trochanter was palpable and visible; the femur was returned to 30 degrees. A posterior retractor was placed similarly between capsule and labrum. This provided excellent visualization. The contents of the cotyloid fossa were removed with electrocautery and the labrum was removed with a knife. There was a notable floor osteophyte. There was some chondromalacia superior acetabulum. Acetabular reaming began with a 51mm reamer. This first reaming was directed anterior to posterior and medial to get down to the true floor. This was inspected and reamed until the true floor was reached. The anterior retractor was then released and entry and exit was provided by traction on the capsular flaps. I then reamed sequentially up to a 58mm reamer where good fit was obtained. The larger reamers were oriented based on anatomical reference of the anterior and lateral monge to ensure proper abduction and anteversion. Positioning and size was confirmed with the fluoroscopy. A 58mm Depuy Powell acetabular component was selected. The acetabulum was reamed around the periphery with the selected acetabular size to prevent a rim fit. The deep tissues were irrigated. The acetabular component was then impacted in a position of about 40-45 degrees of abduction and 15-20 degrees of anteversion, using the patient?s anatomy as the ultimate landmark. Fluoroscopy was used to confirm this. There was excellent pizza hut team member of the acetabular component and the inserting handle was removed. The acetabular liner, Depuy [id number] polyethylene liner, was inserted and lined up with the tines of the acetabular component. There was no soft tissue interposition. The liner was then impacted into position and confirmed to be well-seated. A portion of the kaleigh-articular cocktail was then injected around the acetabulum into the capsule and periosteum. This cocktail consisted of 123mg of Ropivacaine, 0.25mg of Epinephrine, 0.04mg of Clonidine, and 15mg of Ketorolac, diluted to 50cc. The leg was rotated to 120 degrees. Any remaining medial capsule was released until the lesser trochanter was easily palpable. A retractor was placed medially. The lateral capsule was further released into the shoulder to allow access to the greater trochanter. A Strauss retractor was placed over the greater trochanter which allowed the trochanter to flip in front of the capsule for excellent exposure. The leg was brought down into maximal extension and 20 degrees of adduction while ensuring there was no impingement on the acetabulum. Any remnant capsule within the trochanter was released. Piriformis and obturator externis were identified and protected. There was excellent access to the proximal femur. The lateral neck remnant was removed with a rongeur. A blunt canal probe was used to identify the canal and trajectory for later broaching. A box osteotome initiated the broach course. A small curved rasp and a curved curette were used to work laterally. Broaching then began with a starter Actis broach. This was inserted manually around the trochanter and into the canal before mallet blows. The broach was seated to a few millimeters below the cut level based on the neck cut and the preoperative template. Sequential broaching was continued with the SkimaTalk pneumatic broaching device until a tight fit was obtained with good rotational control of the femur. A trial standard neck was inserted along with a +1.5 trial head. The leg was brought out of extension and adduction and then reduced with traction and internal rotation. The leg was stable anteriorly in a position of 30 degrees of extension and 90 degrees of external rotation. Fluoroscopy was used to ensure there was no fracture and the stem was seated well. Leg lengths were checked with an AP pelvis and pelvic reference points. [employer] navigation system was used to confirm appropriate positioning and leg length and offset. The leg length was correct but the offset was undercorrected. Thus, I went up to a high offset neck. Once content with the desired offset and leg lengths, the leg was brought back into extension, external rotation and adduction. The periosteum and surrounding tissue was injected with remaining portion of the kaleigh-articular cocktail. The proximal femur was irrigated as well as the deep tissues. The Depuy Actis high offset collared stem, size 4, was then manually inserted into the proximal femur making sure to control rotation. It was then malleted into position with light blows, giving breaks to allow bone expansion and decrease risk of fracture. The selected Depuy Altrx Ceramic Head, size 36+1.5mm, was then placed onto the clean and dry trunnion and secured with impaction onto the tapered fit. The leg was brought back out of extension and adduction and reduced with traction and internal rotation. Stability was confirmed with no shuck at 90 degrees of external rotation and 30 degrees of extension. No impingement through range of motion arc. Final x-ray images were obtained with fluoroscopy to confirm adequate positioning and no intraoperative fracture. The deep tissues were thoroughly irrigated with Surgiphor, betadine solution. This was allowed to sit in the wound for 3 minutes before being thoroughly irrigated out with normal saline. The capsule was then reapproximated with the previously placed sutures and the capsule was also reapproximated with #1 Vicryl. The TFL fascia was finally closed with a No. 2 Stratafix, barbed suture. Deep tissues were then reapproximated with 0 Vicryl and a running 2-0 Vicryl. The skin was closed with a running 4-0 Monocryl in a subcuticular fashion. This was reinforced with skin glue. A Mepilex silver dressing was applied. At the end of the case, all counts were correct. Richard was transferred to the hospital bed without difficulty and suffering no apparent complication. He has a good prognosis. Physical therapy will start today and without restrictions, weight-bearing as tolerated. Rivaroxaban 20mg will be used for DVT prophylaxis. Date of Procedure: 09/19/24
--- NOTE | 2024-09-19 16:28 | PT.INIE ---
PT Notes Visit Reasons: Left hip DJD Physical Therapy Day Surgery Initial Evaluation Date: 09/19/2024 Referring Doctor: Saadia Walker NP/Dr. Acevedo PT Orders: PT CONSULT: Status post Ortho surgery Precautions: WBAT left LE with assistive device Patient Profile/Admitting Diagnosis: Patient is a 78-year-old male presenting status post elective left LELE under spinal anesthesia by Dr. Acevedo on 09/19/2024. 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) Hyperlipidemia (Chronic) Hypertension (Chronic) Osteoarthritis of left knee (Chronic) Steroid injection: 12/16/2020rthritis of left hip (Chronic) POCUS injection: 06/15/2024; 11/30/2023Trochanteric bursitis, left hip (Chronic) Steroid injection: 12/20/2023Insomnia (Chronic) Presbycusis of both ears (Chronic) BPH w urinary obs/LUTS (Chronic) Macular degeneration of both eyes (Chronic) Medical History Kidney stone Surgical History S/P cardiac catheterization (2021) with stent placementS/P gastric bypass (~1986) S/P routine circumcision (~2019) Social History/Home Situation: Patient resides with single-family home 3 steps with 1 rail to enter, patient independent ambulation and self-care. Equipment Owned/DME: Cane,4WW/rollator; patient fitted for and issued FWW Subjective: Patient reports burning sensation along left anterior lateral proximal hip Objective: [] General Observation: Semireclined ice to left hip, present in room Mental Status: Alert and oriented x 4, cooperative, able to follow instructions, agreeable to participate in evaluation Pain: 5/10 left hip patient reports this is tolerable ROM: [] Right Upper Extremity: WFL Left Upper Extremity: WFL Right Lower Extremity: WFL Left Lower Extremity: Hip flexion 90 degrees, abduction 10 degrees; knee and ankle within functional limits Strength: [] BUE: Grossly 5/5 Right Lower Extremity: Grossly 5/5 Left Lower Extremity: Hip flexion: 3 -/5; hip abduction: 3 -/5; hip extension: 3 -/5; knee extension: 3/5; knee flexion: 3 -/5 ankle DF: 3 3/5 ; ankle PF: /5 Sensation: Intact to light touch and pain Bed Mobility/Transfers: [] Supine to sit min assist for trunk Sit to stand supervision with cues to push up from surface Stand to sit supervision with cues to reach back with hands Bed to chair supervision with verbal cues for safe approach to surface with FWW Gait: Ambulated with FWW 150 feet standby assist reciprocal pattern slight antalgic left lower extremity Stairs: X 2 trials 3 4 steps? and 2 6 steps with bilateral rails CGA with continuous cues for sequencing step to pattern 3 4 steps? and 2 6 steps with 1 rail and straight cane CGA with continuous cues for sequencing step to pattern Balance: [] Static Sitting: Normal Dynamic Sitting: Good Static Standing: Good Dynamic Standing: Fair plus Special Tests: [] Mobility Limitations Standardized Measure [] [facility] AM-PAC 6 clicks Basic Mobility Inpatient Short Form: [] Raw Score: 21 CMS Score: 28.97% Informed Consent/Education: Patient instructed in purpose of PT consult. Packet containing LELE exercise protocol has been given to patient. Education and training on initial set of 5 reps of exercises that can be done at home have been completed with patient. Assessment: Patient is a 78-year-old male who presents with clinical signs and symptoms consistent with current/admitting diagnoses that have resulted to mobility limitations, gait instability, generalized weakness, and impairment of motor control as demonstrated by the following impairment level findings: 1. Decreased strength to left hip major muscle groups 2. Impaired standing balance 3. Limitation of joint range of motion in left hip 4. Pain bilateral hip left greater than right 5. Impaired functional activity tolerance Impairments are contributing to the following functional limitations: 1. Inability to safely ambulate without assistive device 2. Increase completion time for mobility ADL performance 3. Increased fall risk 4. Difficulty performing stairs safely without assistive device and assistance Patient is assessed as a low complexity based on the following: History: 78-year-old male with impairment level findings, functional limitations, and past medical history as indicated above Examination: Demonstrable impairment in strength, balance, and mobility level with underlying impairments and functional limitations as documented above Presentation: Stable Decision Making: Low Goals: N/A. PT evaluation and 1-2 treatment sessions only for functional mobility training using recommended AD and for HEP instruction. Plan of Care/Treatment Plan: N/A. PT evaluation and 1-2 treatment session only for functional mobility training using recommended AD and for HEP instruction. DISCHARGE RECOMMENDATIONS: Home with HEP and use of FWW TREATMENT CODE/TIME: [id number] Thank you for the opportunity to participate in the care of this patient. Kathy Avendaño, PT [facility]
== END 2024-09-19 15:35 | disposition home or self-care (01) ==
LOC: SUR 09:37
PROVIDERS: PCP Nurse Practitioner Family; Visit Provider Student in an Organized Health Care Education/Training Program
PROC: (CPT 27130; principal; 2024-09-19 12:45)
DX: M16.12 Unilateral primary osteoarthritis, left hip (principal)
CPT/HCPCS: 20985; 27130; 97161; 73501; C1776; J0690; J1100; J2003; J2250; J2401; J2405; J2704; J3010

== ENCOUNTER → 2024-09-22 11:20 | Outpatient (BNVA) | payer MEDICARE, BC, SELFPAY | PROVIDERS: PCP Nurse Practitioner Family; Referring Provider Nurse Practitioner Family; Visit Provider Physician Assistant | DX: Z47.1 Aftercare following joint replacement surgery (principal); Z96.642 Presence of left artificial hip joint | CPT/HCPCS: 99024 ==

== ENCOUNTER 2024-10-02 11:11 | Outpatient (CLI) | payer MEDICARE, BC, SELFPAY ==
--- NOTE | 2024-10-02 10:15 | DI.RAD_ITS ---
Exam(s) XR HIP LT COMPLETE AP PELVIS EXAM: XR HIP LT COMPLETE AP PELVIS CLINICAL HISTORY: 1ST POST OP S/P L LELE. TECHNIQUE: 2D digital imaging was performed. Two images were obtained. AP pelvis and lateral hip views were obtained. COMPARISON: CR XR PELVIS AP from 09/11/2024 XA XR HIP LT IN OR from 09/19/2024 FINDINGS: BONES: There are stable post operative changes of a left total hip arthroplasty present. No fracture or dislocation. JOINTS: The orthopedic hardware is in good position. No evidence of hardware loosening. SOFT TISSUE: Normal. IMPRESSION: Stable left total hip arthroplasty. DATA REPOSITORY: RADIATION DOSE DELIVERED:
== END 2024-10-02 11:12 | disposition home or self-care (01) ==
LOC: DIORS 11:11
PROVIDERS: PCP Nurse Practitioner Family; Referring Provider Nurse Practitioner Family; Visit Provider Student in an Organized Health Care Education/Training Program
DX: Z47.1 Aftercare following joint replacement surgery (principal); Z96.642 Presence of left artificial hip joint; M25.552 Pain in left hip
CPT/HCPCS: 99024; 73502

== ENCOUNTER 2024-10-10 12:58 | Emergency (ER) | payer MEDICARE, BC, SELFPAY ==
[2024-10-10 12:59] VITALS: BP 159/78; PULSE 82; RESP 18; TEMP 37.3; O2SAT 99
--- NOTE | 2024-10-10 13:00 | DI.RAD_ITS ---
Exam(s) XR HIP RT COMPLETE AP PELVIS EXAM: XR HIP RT COMPLETE AP PELVIS INDICATION: pop when bending forward. COMPARISON: No exams were available for comparison TECHNIQUE: 2D digital imaging was performed. AP view of the pelvis and cross- table lateral view of the right hip FINDINGS: There is a left hip prosthesis which is. The right hip is suboptimally profiled some rotation on the AP view. There is significant under penetration on the cross-table lateral view. No gross fractures seen. The exam also limited by overlying soft tissues. The right hip joint space is maintained. IMPRESSION: Limited exam. No acute abnormality. DATA REPOSITORY: RADIATION DOSE DELIVERED:
--- NOTE | 2024-10-10 13:03 | W.ED.GENAD ---
Discharge Plan Disposition Patient Disposition: Home Condition: Good Discharge Details Clinical Impression: Acute pain of right hip, Bursitis, trochanteric Primary Care Provider: Nyasia Osborne ED Provider: Rosina Bosch Home Meds and New Rx's Prescriptions: Continued cholecalciferol (vitamin D3) 125 mcg (5,000 unit) capsule 125 mcg PO DAILY metformin 1,000 mg tablet 1,000 mg PO BID rosuvastatin 20 mg tablet 20 mg PO DAILY finasteride 5 mg tablet 5 mg PO DAILY Xarelto 20 mg tablet 20 mg PO DAILY Qty: 90 3RF Rx Instructions: must administer with evening meal metoprolol succinate 25 mg tablet extended release 24 hr 25 mg PO DAILY Qty: 90 3RF trospium 20 mg tablet 20 mg PO DAILY PreserVision AREDS-2 250-90-40-1 mg capsule 1 tab PO QAM AND QHS magnesium oxide 500 mg capsule 500 mg PO DAILY tamsulosin 0.4 mg capsule 0.4 mg PO BID saw palmetto 450 mg capsule 450 mg PO DAILY melatonin 10 mg capsule 10 mg PO HS PRN oxycodone 5 mg tablet 5 mg PO BID MDD 2 tablets PRN (Reason: severe postoperative pain) Qty: 10 0RF Rx Instructions: Take one tablet up to every 12 hours as needed for severe postoperative pain furosemide 20 mg tablet 20 mg PO DAILY PRN (Reason: edema) Qty: 20 0RF mecobalamin (vitamin B12) 1,000 mcg tablet,disintegrating 1,000 mcg sublingual DAILY Rx Instructions: place tablet under tongue and allow to dissolve for at least30 secs before swallowing methocarbamol 750 mg tablet 750 mg PO TID Qty: 30 0RF glimepiride 2 mg tablet 2 mg PO DAILY Qty: 90 3RF losartan 100 mg tablet 100 mg PO DAILY Qty: 90 3RF potassium chloride 20 mEq/15 mL liquid 20 meq PO DAILY Qty: 450 0RF diclofenac sodium [Voltaren Arthritis Pain] 1 % gel 4 g topical QID Qty: 50 0RF Rx Instructions: apply to area of pain acetaminophen 500 mg tablet 1,000 mg PO Q8H PRN Qty: 90 0RF Rx Instructions: Take two tablets up to every 8 hours as needed for pain docusate sodium [Colace] 100 mg capsule 100 mg PO BID Qty: 28 0RF meloxicam 15 mg tablet 15 mg PO DAILY Qty: 30 1RF Rx Instructions: Take one tablet daily for pain and inflammation pantoprazole 40 mg tablet,delayed release (DR/EC) 40 mg PO DAILY Qty: 14 0RF Rx Instructions: Take one tablet once daily lidocaine 5 % adhesive patch,medicated 1 patch topical DAILY Qty: 30 0RF Rx Instructions: leave on most painful area for up to 12 hrs Discharge Instructions Instructions: Hip Pain ED Additional Instructions: As we discussed, your imaging is reassuring with no evidence of fracture or dislocation. You do have pain more over the greater trochanter which could be bursitis as well as IT band inflammation. Please continue with your physical therapy. Please continue to ambulate with the walker. Please use assistive devices when possible such as when putting on your shoes. You may use Tylenol as needed for discomfort. May also try topical numbing patches as lidocaine over the area. These are available [id number]. Please call orthopedics to schedule follow-up appointment, number listed below. If you develop any new or worsening symptoms please seek care urgently once again. Referrals: Wade Acevedo MD [ [facility] STAFF PHYSICIAN, Orthopaedic Surgical] [facility] General Mode of arrival: EMS. Date/Time Provider Initiated Documentation: 10/10/24 13:03. Limitations to Documentation: no limitations. Information obtained by: patient, EMS, RN notes reviewed and old records reviewed. History of Present Illness 78 year old M presents to the emergency department with the chief complaint of left hip pain, described as severe (only with movement), Quality is described as stabbing, Patient reports no radiation. Patient started experiencing this minute(s) and it has been intermittent. Immobilization improves symptom(s), Movement worsens symptoms . Patient notes no other symptoms.. Patient did receive the following treatments prior to arrival, none Related Data Home Medications ?Medication ?Instructions ?Recorded ?Confirmed cholecalciferol (vitamin D3) 125 125 mcg PO DAILY 12/10/20 10/10/24 mcg (5,000 unit) capsule metformin 1,000 mg tablet 1,000 mg PO BID 12/10/20 10/10/24 rosuvastatin 20 mg tablet 20 mg PO DAILY 01/26/22 10/10/24 finasteride 5 mg tablet 5 mg PO DAILY 12/03/22 10/10/24 potassium chloride 20 mEq/15 mL 20 meq (15 mL) PO DAILY #450 mL 04/11/24 09/02/25 oral liquid magnesium oxide 500 mg capsule 500 mg PO DAILY 05/24/24 10/10/24 melatonin 10 mg capsule 10 mg PO HS PRN 05/24/24 10/10/24 metoprolol succinate 25 mg 25 mg PO DAILY #90 tabs 05/24/24 10/10/24 tablet,extended release 24 hr saw palmetto 450 mg capsule 450 mg PO DAILY 05/24/24 10/10/24 tamsulosin 0.4 mg capsule 0.4 mg PO BID 05/24/24 10/10/24 trospium 20 mg tablet 20 mg PO DAILY 05/24/24 10/10/24 vit C 250 mg-vit E 90 mg-zinc 40 1 tab PO QAM AND QHS 05/24/24 10/10/24 mg-copper 1 [id number] capsule (PreserVision AREDS-2) lidocaine 5 % topical patch 1 patch topical DAILY #30 ea 07/19/24 10/10/24 furosemide 20 mg tablet 20 mg PO DAILY PRN edema #20 tabs 08/23/24 10/10/24 mecobalamin (vitamin B12) 1,000 1,000 mcg sublingual DAILY 08/24/24 10/10/24 mcg disintegrating tablet,sublingual diclofenac sodium 1 % topical gel 4 g topical QID #50 grams 08/26/24 10/10/24 (Voltaren Arthritis Pain) rivaroxaban 20 mg tablet (Xarelto) 20 mg PO DAILY #90 tabs 08/31/24 10/10/24 methocarbamol 750 mg tablet 750 mg PO TID #30 tabs 09/07/24 10/10/24 acetaminophen 500 mg tablet 1,000 mg (2 x 500 mg) PO Q8H PRN 09/19/24 10/10/24 pain #90 tabs docusate sodium 100 mg capsule 100 mg PO BID #28 caps 09/19/24 10/10/24 (Colace) meloxicam 15 mg tablet 15 mg PO DAILY #30 tabs 09/19/24 10/10/24 pantoprazole 40 mg tablet,delayed 40 mg PO DAILY #14 tabs 09/19/24 10/10/24 release glimepiride 2 mg tablet 2 mg PO DAILY #90 tabs 09/27/24 10/10/24 losartan 100 mg tablet 100 mg PO DAILY #90 tabs 09/27/24 10/10/24 oxycodone 5 mg tablet 5 mg PO BID PRN severe 10/02/24 10/10/24 postoperative pain #10 tabs Previous Rx's ?Medication ?Instructions ?Recorded potassium chloride 20 mEq/15 mL 20 meq (15 mL) PO DAILY #450 mL 05/20/23 oral liquid metoprolol succinate 25 mg 25 mg PO DAILY #90 tabs 05/24/24 tablet,extended release 24 hr lidocaine 5 % topical patch 1 patch topical DAILY #30 ea 07/19/24 furosemide 20 mg tablet 20 mg PO DAILY PRN edema #20 tabs 08/23/24 diclofenac sodium 1 % topical gel 4 g topical QID #50 grams 08/26/24 (Voltaren Arthritis Pain) rivaroxaban 20 mg tablet (Xarelto) 20 mg PO DAILY #90 tabs 08/31/24 methocarbamol 750 mg tablet 750 mg PO TID #30 tabs 09/07/24 acetaminophen 500 mg tablet 1,000 mg (2 x 500 mg) PO Q8H PRN 09/19/24 pain #90 tabs docusate sodium 100 mg capsule 100 mg PO BID #28 caps 09/19/24 (Colace) meloxicam 15 mg tablet 15 mg PO DAILY #30 tabs 09/19/24 pantoprazole 40 mg tablet,delayed 40 mg PO DAILY #14 tabs 09/19/24 release glimepiride 2 mg tablet 2 mg PO DAILY #90 tabs 09/27/24 losartan 100 mg tablet 100 mg PO DAILY #90 tabs 09/27/24 oxycodone 5 mg tablet 5 mg PO BID PRN severe 10/02/24 postoperative pain #10 tabs Allergies Allergy/AdvReac Type Severity Reaction Status Date / Time lisinopril AdvReac Mild cough Verified 10/10/24 13:07 ibuprofen AdvReac Other (See Verified 10/10/24 13:07 Comment) trazodone AdvReac dry mouth Verified 10/10/24 13:07 General TETE: 4 Review of Systems Constitutional Constitutional: Reports as per HPI, Denies chills, Denies fever(s) and Denies weakness Cardiovascular Cardiovascular: Reports as per HPI Respiratory Respiratory: Reports as per HPI and Denies cough Musculoskeletal Musculoskeletal: Reports as per HPI and Denies tingling Integumentary/Breasts Skin/Breast: Reports as per HPI, Denies rash and Denies wounds Neurologic Neurologic: Reports as per HPI, Denies tingling, Denies paresthesias and Denies weakness Exam Const General: cooperative, healthy appearing, comfortable, no acute distress, well developed and well groomed Nutritional Appearance: well nourished and obese Orientation: alert and awake Resp Effort & Inspection: normal respiratory effort, able to speak in complete sentences and no respiratory distress Cardio Rate: regular rate Rhythm: regular rhythm Skin General skin exam: no rashes or lesions noted Lesions: no lesions Rashes: no rashes Trauma: no lacerations or abrasions Neuro General: patient alert and patient awake Cognition: normal cognition Speech: speech normal Motor: muscle tone normal throughout Sensory Exam: no sensory deficits noted Extrem Upper/lower leg/hip images:  1. Area of maximal discomfort is over the right greater trochanter. Limited range of motion due to discomfort. No shortening or malrotation. No pain more into the groin or distal to this area. No discoloration or rash. 2+ distal pulses. Medical Decision Making Patient is a pleasant 69-year-old gentleman with past medical history significant forMorbid obesity, trochanteric bursitis, osteoarthritis, CAD, paroxysmal A-fib, BRAXTON, type 2 diabetes, hyperlipidemia, hypertension, osteoarthritis, BPH, presenting today via EMS for chief complaint of right hip pain. Patient underwent a left total hip replacement on 09/19/2024. States that been healing well although slightly delayed compared to what he had been expecting as he had some complications with swelling. However, he is coming in today for contralateral hip pain on the right side which he states began after working with physical therapy. He states that they left after helping him with his left hip when he bent forward to tie his shoes and felt a pop had a sudden onset of severe pain in the right hip. Denies any injury, did not fall. Was able to sit back into a nearby chair. EMS reports that they were able to have him stand turn but otherwise has been having significant pain with movement. At rest, he denies any discomfort in the hip. No radiation of pain. States that he does have some chronic right hip pain, plan initially had been to have a staged procedure with the right hip being replaced as well but this has not yet been scheduled due to the continued healing of the left side. On exam, patient appears nontoxic. He is resting comfortably no acute distress. He has no rotational deficits or shortening of the leg. No evidence to suggest large displaced hip fracture. However, due to the patient's discomfort it is a slightly limited exam at this point. Given the severity, I do feel that moving forward with x-ray prior to trying to mobilize fully is appropriate. Patient declines any analgesics at this time. When I initially reviewed the patient's x-ray of his hip, I was concerned for potential fracture given the very short femoral neck. However, Dr. Acevedo, who is very familiar with this patient and performed his total hip replacement on the contralateral side, so the imaging advised that this is typical for him and his normal anatomy. However, given the amount of discomfort he did recommend a CT scan without contrast and patient is agreeable to this advanced imaging. CT scan was reviewed by Dr. Acevedo, no acute abnormality was noted. Discussed with the patient. Will give Tylenol to help with discomfort and attempt some mobilization. Patient was ambulated to ambulate well with minimal assistance. He is using a walker at baseline and reports that he has 2 of these at home. He feels ready for discharge. On reexamination, his pain is maximal over the greater trochanter. Per Dr. Acevedo, the patient's had multiple injections and with his planned upcoming procedure, I do not feel that injecting him at this point would be appropriate as this could delay his definitive treatment. Instead, we will hold off and have him follow-up with orthopedics. Encouraged supportive care. Return precautions were discussed. He will call orthopedics to schedule follow-up appointment. All his questions and concerns were addressed and he is in agreement this plan. CT scan was reviewed by the radiologist and they did note a 6.3 x 3.3 x 7.7 fluid collection in the left thigh. They advised this could potentially be a postoperative seroma, resolving hematoma or abscess. As the patient's pain to improve from his surgery, I do not believe that the patient's presenting with infection, more likely to be resolving hematoma or seroma. He has being followed appropriately by orthopedics. 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) Hyperlipidemia (Chronic) Hypertension (Chronic) Osteoarthritis of left knee (Chronic) Steroid injection: 12/16/2020 Trochanteric bursitis, left hip (Chronic) Steroid injection: 12/20/2023 Insomnia (Chronic) Presbycusis of both ears (Chronic) BPH w urinary obs/LUTS (Chronic) Macular degeneration of both eyes (Chronic) Medical History Kidney stone Surgical History S/P cardiac catheterization (2021) with stent placement S/P gastric bypass (~1986) S/P routine circumcision (~2019) Family History Mother Dementia Diabetes Father Diabetes Heart disease Hypertension Stroke Sister Dementia Brother No problems noted. Son Asthma Maternal Grandmother Dementia Maternal Grandfather No problems noted. Paternal Grandmother No problems noted. Paternal Grandfather No problems noted. Social History Smoking/Tobacco Use Status: Former Tobacco Use tobacco type: cigarettes Quit Date: 02/08/82 Pack-years: 36 Tobacco: How many years used: 24 Quit status: quit date established Second Hand Exposure: Yes Smoking risk assessment performed?: Yes Alcohol Intake: former Drug use: Never Substance use type: does not use Counseling given: No Adopted: No Household members: spouse Housing: house Number of Children: 2 number of grandchildren: 2 Communication Needs: Hard of Hearing and Corrective Lenses Education Level: middle school Details: 8th Do you need help understanding health information?: Always 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 Sexually active: No Do you think of yourself as: straight/heterosexual Current gender identity: male What is your relationship status?: How often do you talk on the phone with friends or family?: twice per week How often do you get together with friends or relatives?: once per week How often do you attend confucianism or yazdanism services?: decline to answer Do you belong to any clubs or organized social groups?: no Panel score (0-1 are the most socially isolated patients): 2 NHANES result reviewed/action taken: Yes What type of physical activity do you participate in: none Frequency: does not exercise Chandrika/Christianity: Non yazidi Special chandrika needs: No Seatbelt use: always Drive intox or ride w/intox locomotive driver: No Firearms in home: Yes Firearms unloaded and locked: Yes Do you feel safe at home: Yes Do you feel safe in your relationship?: Yes Victim of physical abuse: No Victim of emotional abuse: No Victim of sexual abuse: No Would you like helpful sources: No
--- NOTE | 2024-10-10 14:15 | DI.CT_ITS ---
Exam(s) CT LOWER EXTREMITY RT WO EXAM: CT LOWER EXTREMITY RT WO CLINICAL HISTORY: hip pain. TECHNIQUE: Imaging Protocol: Axial computed tomography images with coronal and sagittal reformatted images were created and reviewed. COMPARISON: CT CT CHEST/ABD/PEL W from 05/17/[address] PELVIC WO from 08/10/2023 CR XR HIP LT COMPLETE AP PELVIS from 10/02/2024 CR XR HIP RT COMPLETE AP PELVIS from 10/10/2024 FINDINGS: Bones: The osseous structures and articular surfaces are intact. Bony alignment is satisfactory. Since the prior CT examination from 08/10/2023, the patient has undergone a left total hip arthroplasty. The sacroiliac joints show no evidence of ankylosis or erosion. The symphysis pubis is intact. There are mild degenerative changes seen in the right hip. No lytic or sclerotic lesions are identified. Soft Tissues: There is mild edema seen in the soft tissues adjacent to the left greater trochanter particularly around the proximal IP band. The ITB band appears heterogeneous and thickened. There is diverticulosis of the colon without evidence of acute diverticulitis. The prostate gland is enlarged. There is a small fat containing left inguinal hernia. There is a new 6.3 AP by 3.3 transverse by 7.7 craniocaudad cm fluid collection lateral to the left femur interposed between the tensor fascia vj and the vastus lateralis muscles. IMPRESSION: 1. There is no acute fracture or dislocation. 2. Findings suspicious for right IT band syndrome. MRI may be considered for further characterization. 3. Mild degenerative changes seen at the right hip. 4. Interval development of a 6.3 x 3.3 x 7.7 cm fluid collection in the left thigh. This may represent a postoperative seroma, resolving hematoma or possible abscess. RADIATION DOSE DELIVERED: 561.12mGy.cm Total DLP 561.12mGy.cm Total DLP DATA REPOSITORY: All CT scans at this facility are submitted to the National Radiology Data Registry (NRDR) Dose Index Registry (DIR) with the [employer] (A[employer]). RADIATION OPTIMIZATION: All CT scans at this facility use at least one of these dose optimization techniques: automated exposure control; mA and/or kV adjustment per patient size (includes targeted exams where dose is matched to clinical indication); or iterative reconstruction.
[2024-10-10] MEDS: Acetaminophen 500 MG TAB 1000 MG PO (14:43)
== END 2024-10-10 15:20 | disposition home or self-care (01) ==
PROVIDERS: Emergency Provider Physician Assistant; PCP Nurse Practitioner Family
DX: M70.61 Trochanteric bursitis, right hip (principal); M25.551 Pain in right hip
CPT/HCPCS: 99284 ×2; 73502; 73700

== ENCOUNTER 2024-10-23 10:04 | Outpatient (CLI) | payer MEDICARE, BC, SELFPAY ==
[2024-10-23 14:29] LABS: Anion Gap 6.8 mmol/L (3-11); BUN 14 mg/dL (7-18); CO2 31.2 mmol/L (21.0-32.0); Calcium 9.0 mg/dL (8.5-10.1); Chloride 102 mmol/L (98-107); Estimated GFR 67.86 (mL/min/1.73m2); Glucose 172 mg/dL (74-106); Potassium 3.9 mmol/L (3.5-5.1); Sodium 140 mmol/L (136-145)
== END 2024-10-23 10:05 | disposition home or self-care (01) ==
LOC: LOS 10:04
PROVIDERS: PCP Nurse Practitioner Family; Visit Provider Family Medicine
DX: R60.9 Edema, unspecified (principal)
CPT/HCPCS: 36415; 80048

== ENCOUNTER → 2024-10-30 10:39 | Outpatient (BNVA) | payer MEDICARE, BC, SELFPAY | PROVIDERS: PCP Nurse Practitioner Family; Referring Provider Nurse Practitioner Family; Visit Provider Student in an Organized Health Care Education/Training Program | DX: Z47.1 Aftercare following joint replacement surgery (principal); Z96.652 Presence of left artificial knee joint | CPT/HCPCS: 99024 ==

== ENCOUNTER 2024-11-03 18:05 | Outpatient (REF) | payer MEDICARE, BC, SELFPAY ==
[2024-11-03 21:24] LABS: Anion Gap 12.3 mmol/L (3-11); BUN 15 mg/dL (7-18); CO2 26.7 mmol/L (21.0-32.0); Calcium 8.6 mg/dL (8.5-10.1); Chloride 104 mmol/L (98-107); Estimated GFR 76.08 (mL/min/1.73m2); Glucose 163 mg/dL (74-106); NT-proBNP 1206 pg/mL (<300); Potassium 3.9 mmol/L (3.5-5.1); Sodium 143 mmol/L (136-145)
== END 2024-11-03 18:06 | disposition home or self-care (01) ==
LOC: LBN 18:05
PROVIDERS: PCP Nurse Practitioner Family; Visit Provider Nurse Practitioner Family
DX: I50.9 Heart failure, unspecified (principal); R60.9 Edema, unspecified; E87.6 Hypokalemia
CPT/HCPCS: 80048; 83880

== ENCOUNTER → 2024-11-09 08:46 | Outpatient (BNVA) | payer MEDICARE, BC, SELFPAY | PROVIDERS: PCP Nurse Practitioner Family; Referring Provider Nurse Practitioner Family; Visit Provider Nurse Practitioner Gerontology | DX: N40.1 Benign prostatic hyperplasia with lower urinary tract symptoms (principal); N13.8 Other obstructive and reflux uropathy; R33.9 Retention of urine, unspecified; R60.0 Localized edema; R39.9 Unspecified symptoms and signs involving the genitourinary system | CPT/HCPCS: 99215; 81002; 51798 ==

== ENCOUNTER 2024-11-09 09:59 | Outpatient (CLI) | payer MEDICARE, BC, SELFPAY ==
[2024-11-09 10:07] LABS: Abs Immature Grans 0.03 10^3/uL (0.0-0.06); HCT 33.2 % (40.0-50.0); HGB 10.7 g/dL (13.5-17.5); Immature Grans % 0.4 %; MCH 30.9 pg (27.0-33.0); MCHC 32.2 % (32.0-36.0); MCV 96 fL (80-95); MPV 10.5 fL (8.0-11.0); Platelet Count 165 10^3/uL (130-400); RBC 3.46 10^6/uL (4.36-5.78); RDW 13.6 % (11.8-14.1); RDW-SD 48.0 fL; WBC 7.05 10^3/uL (4.4-10.8)
[2024-11-09 10:40] LABS: Hemoglobin A1C 5.3 % (<5.7)
[2024-11-09 11:15] LABS: ALT 21 U/L (16-63); AST 19 U/L (15-37); Albumin 3.3 g/dL (3.4-5.0); Alkaline Phosphatase 46 U/L (46-116); Anion Gap 9.8 mmol/L (3-11); BUN 14 mg/dL (7-18); Bilirubin, Total 0.6 mg/dL (0.2-1.0); CO2 25.2 mmol/L (21.0-32.0); Calcium 8.3 mg/dL (8.5-10.1); Chloride 105 mmol/L (98-107); Estimated GFR 67.86 (mL/min/1.73m2); Glucose 177 mg/dL (74-106); Potassium 4.4 mmol/L (3.5-5.1); Sodium 140 mmol/L (136-145); TSH (W/Ref FT4) 1.71 uIU/mL (0.36-3.74); Total Protein 6.1 g/dL (6.4-8.2); Vitamin B12 457 pg/mL (193-986)
[2024-11-09 11:37] LABS: NT-proBNP 1562 pg/mL (<300)
[2024-11-09 13:46] LABS: Lab Add On Test DONE
[2024-11-09 14:15] LABS: Folate 11.3 ng/mL (8.6-20.0)
[2024-11-09 17:44] LABS: PSA, Diagnostic 0.6 ng/mL (<=6.5)
== END 2024-11-09 10:00 | disposition home or self-care (01) ==
LOC: LBO 10:00
PROVIDERS: PCP Nurse Practitioner Family; Visit Provider Nurse Practitioner Gerontology
DX: R06.02 Shortness of breath (principal); R60.9 Edema, unspecified; E53.8 Deficiency of other specified B group vitamins; E11.29 Type 2 diabetes mellitus with other diabetic kidney complication; R80.9 Proteinuria, unspecified; N13.8 Other obstructive and reflux uropathy; N40.1 Benign prostatic hyperplasia with lower urinary tract symptoms; R33.9 Retention of urine, unspecified; D53.9 Nutritional anemia, unspecified
CPT/HCPCS: 36415; 51798; 80053; 81002; 99215; 73502; 82607; 82746; 83036; 83880; 84153; 84443; 85025; 93970

== ENCOUNTER 2024-11-10 04:18 | Outpatient (CLI) | payer MEDICARE, BC, SELFPAY ==
--- NOTE | 2024-11-10 06:00 | DI.CT_ITS ---
Exam(s) CT CHEST PE CTA EXAM: CT CHEST PE CTA CLINICAL HISTORY: VALLE, recent hip replacement,?pe,r06.09. TECHNIQUE: Imaging Protocol: CT angiography of the chest was performed using pulmonary embolus protocol. Multi planar reconstructions were performed. CONTRAST MATERIAL: Intravenous: Omnipaque 350 Contrast volume: 100 cc COMPARISON: CT CT CHEST/ABD/PEL W from 05/17/2023 FINDINGS: CHEST: PULMONARY ARTERIES: There are no intraluminal filling defects to suggest acute pulmonary emboli. LUNGS: There is small bilateral pleural effusions now evident.. Calcified granulomas in the left lower lobe are again noted. Multiple small nodules in the right lung appear unchanged from CT scan of May 2023, the largest again measuring 5-6 mm. No new ominous nodules evident. No confluent infiltrates. MEDIASTINUM: There is small lymph nodes in the right hilum and increase in size of right paratracheal lymph nodes. There also some enlarged lymph nodes in the subcarinal region. Visualized thyroid unremarkable. CARDIAC: Is cardiomegaly and coronary artery calcification noted. There is a small pericardial effusion which has slightly further increased in size from 2023.The diameter of the ascending thoracic aorta is enlarged with maximum diameter 4.7 cm, slightly larger than previous measurement. Diameter of the aortic arch is 3.1 cm. Diameter of the descending thoracic aorta is upper normal. Cannot assess for dissection as the intravenous contrast is all in the pulmonary arterial tree. Ventricular ratio is approximately 1:1 PARTIALLY VISUALIZED UPPERMOST ABDOMEN: There is mild reflux of injected intravenous contrast into the IVC. There is evidence of previous surgery in the region of the stomach. No adrenal masses. Normal spleen size. OSSEOUS: No significant osseous lesions.No fractures.. IMPRESSION: 1. No evidence of acute pulmonary emboli. No evidence of pulmonary infarction. 2. Multiple small benign-appearing right-sided lung nodules are unchanged from CT scan of May 2023. However, there are now small bilateral pleural effusions. 3. There is cardiomegaly which appears increased from 2023. This, together with small bilateral pleural effusions may imply element of CHF. Ascending thoracic aorta is dilated to 4.7 cm. Pericardial effusion has also slightly further increased when compared to 2023. RADIATION DOSE DELIVERED: Total DLP DATA REPOSITORY: All CT scans at this facility are submitted to the National Radiology Data Registry (NRDR) Dose Index Registry (DIR) with the [employer] (ACR). RADIATION OPTIMIZATION: All CT scans at this facility use at least one of these dose optimization techniques: automated exposure control; mA and/or kV adjustment per patient size (includes targeted exams where dose is matched to clinical indication); or iterative reconstruction.
[2024-11-10] MEDS: Omnipaque 350 MG/ML 500 ML BTL-Imaging package IJ (08:38)
[2024-11-10] MEDS: Normal Saline - Diluent 50 ML VIAL IJ (08:40)
[2024-11-10] MEDS: Normal Saline Flush 10 ML SYR IVP (08:41)
== END 2024-11-10 04:38 ==
LOC: DI 04:21
PROVIDERS: PCP Nurse Practitioner Family; Visit Provider Nurse Practitioner Family
DX: R06.09 Other forms of dyspnea (principal); R91.8 Other nonspecific abnormal finding of lung field
CPT/HCPCS: 71275; 93306; C8929

== ENCOUNTER 2024-11-22 10:28 | Outpatient (CLI) | payer MEDICARE, BC, SELFPAY ==
[2024-11-22 14:32] LABS: HCT 37.8 % (40.0-50.0); HGB 12.5 g/dL (13.5-17.5); MCH 31.1 pg (27.0-33.0); MCHC 33.1 % (32.0-36.0); MCV 94 fL (80-95); MPV 11.0 fL (8.0-11.0); Platelet Count 195 10^3/uL (130-400); RBC 4.02 10^6/uL (4.36-5.78); RDW 12.7 % (11.8-14.1); RDW-SD 44.1 fL; WBC 7.84 10^3/uL (4.4-10.8)
[2024-11-22 14:34] LABS: Anion Gap 10.0 mmol/L (3-11); BUN 17 mg/dL (7-18); CO2 29.0 mmol/L (21.0-32.0); Calcium 9.0 mg/dL (8.5-10.1); Chloride 102 mmol/L (98-107); Estimated GFR 61.13 (mL/min/1.73m2); Glucose 221 mg/dL (74-106); NT-proBNP 1240 pg/mL (<300); Potassium 4.4 mmol/L (3.5-5.1); Sodium 141 mmol/L (136-145)
== END 2024-11-22 10:29 | disposition home or self-care (01) ==
LOC: LOS 10:29
PROVIDERS: PCP Nurse Practitioner Family; Visit Provider Nurse Practitioner Family
DX: I50.30 Unspecified diastolic (congestive) heart failure (principal); R60.0 Localized edema; D53.9 Nutritional anemia, unspecified
CPT/HCPCS: 36415; 80048; 85027; 83880

== ENCOUNTER → 2024-11-28 11:34 | Outpatient (BNVA) | payer MEDICARE, BC, SELFPAY | PROVIDERS: PCP Nurse Practitioner Family; Referring Provider Nurse Practitioner Family; Visit Provider Internal Medicine Cardiovascular Disease | DX: I50.32 Chronic diastolic (congestive) heart failure (principal); I25.10 Atherosclerotic heart disease of native coronary artery without angina pectoris; R06.09 Other forms of dyspnea | CPT/HCPCS: 99214 ==

== ENCOUNTER → 2024-12-14 12:59 | Outpatient (BNVA) | payer MEDICARE, BC, SELFPAY | PROVIDERS: PCP Nurse Practitioner Family; Referring Provider Nurse Practitioner Family; Visit Provider Internal Medicine Cardiovascular Disease | DX: R09.89 Other specified symptoms and signs involving the circulatory and respiratory systems (principal); I25.10 Atherosclerotic heart disease of native coronary artery without angina pectoris; I50.32 Chronic diastolic (congestive) heart failure | CPT/HCPCS: 99214 ==

== ENCOUNTER 2024-12-14 13:58 | Outpatient (CLI) | payer MEDICARE, BC, SELFPAY ==
[2024-12-14 14:00] LABS: HCT 41.6 % (40.0-50.0); HGB 13.9 g/dL (13.5-17.5); MCH 30.6 pg (27.0-33.0); MCHC 33.4 % (32.0-36.0); MCV 92 fL (80-95); MPV 11.0 fL (8.0-11.0); Platelet Count 195 10^3/uL (130-400); RBC 4.54 10^6/uL (4.36-5.78); RDW 12.3 % (11.8-14.1); RDW-SD 41.4 fL; WBC 8.89 10^3/uL (4.4-10.8)
[2024-12-14 14:36] LABS: Anion Gap 14.0 mmol/L (3-11); BUN 20 mg/dL (7-18); CO2 27.0 mmol/L (21.0-32.0); Calcium 9.4 mg/dL (8.5-10.1); Chloride 100 mmol/L (98-107); Glucose 197 mg/dL (74-106); Potassium 4.1 mmol/L (3.5-5.1); Sodium 141 mmol/L (136-145)
[2024-12-14 15:18] LABS: INR 1.3 (0.9-1.1); PTT Activated 26.7 sec (20.6-30.2); Prothrombin Time 12.6 sec (9.1-11.1)
== END 2024-12-14 13:59 | disposition home or self-care (01) ==
LOC: LBO 13:58
PROVIDERS: PCP Nurse Practitioner Family; Visit Provider Internal Medicine Cardiovascular Disease
DX: I50.9 Heart failure, unspecified (principal); I50.32 Chronic diastolic (congestive) heart failure; I25.10 Atherosclerotic heart disease of native coronary artery without angina pectoris
CPT/HCPCS: 36415; 80048; 85027; 85610; 85730

== ENCOUNTER 2025-01-09 11:23 | Outpatient (CLI) | payer MEDICARE, BC, SELFPAY ==
[2025-01-09 14:24] LABS: Anion Gap 11.1 mmol/L (3-11); BUN 14 mg/dL (9-23); CO2 28.0 mmol/L (20.0-31.0); Calcium 8.7 mg/dL (8.3-10.6); Chloride 100 mmol/L (98-107); Glucose 205 mg/dL (74-106); Potassium 3.8 mmol/L (3.5-5.1); Sodium 139 mmol/L (136-145)
== END 2025-01-09 11:24 | disposition home or self-care (01) ==
LOC: LOS 11:25
PROVIDERS: PCP Nurse Practitioner Family; Visit Provider Nurse Practitioner Family
DX: I50.30 Unspecified diastolic (congestive) heart failure (principal)
CPT/HCPCS: 36415; 80048

== ENCOUNTER 2025-01-16 01:40 | Outpatient (CLI) | payer MEDICARE, BC, SELFPAY ==
[2025-01-16] MEDS: Levalbuterol HFA 15 GM INH 4 PUFF IH (09:03)
[2025-01-16] MEDS: Inhaler, Assist Device 1 EACH MC (09:03)
--- NOTE | 2025-01-17 08:56 | W.PFT ---
Date of service: 01/16/25 Time of Service: 07:59 Pulmonary Function Test Result Indications: Dyspnea Impression 1. Good patient effort was noted. ATS standards for reproducibility were met. 2. Spirometry showed mild obstructive lung disease with an FEV1 of 109% (2.58 L) 3. Following the administration of a bronchodilator there was not a significant response 4. TLC was normal. No evidence of restrictive lung disease 5. DLCO was normal at 82% predicted
== END 2025-01-16 01:41 | disposition home or self-care (01) ==
LOC: RT 01:40
PROVIDERS: PCP Nurse Practitioner Family; Visit Provider Nurse Practitioner Family
DX: J44.9 Chronic obstructive pulmonary disease, unspecified (principal); J90 Pleural effusion, not elsewhere classified; I27.20 Pulmonary hypertension, unspecified; R06.09 Other forms of dyspnea; Z87.891 Personal history of nicotine dependence
CPT/HCPCS: 99215; 94618; 76604; 94060; 94726; 94729

== ENCOUNTER 2025-01-17 12:08 | Outpatient (REF) | payer MEDICARE, BC, SELFPAY ==
[2025-01-19 19:02] LABS: Centromere Ab, IgG <0.2 U; Scl 70 Antibodies, IgG <0.2 U
== END 2025-01-17 12:09 | disposition home or self-care (01) ==
LOC: LBN 12:08
PROVIDERS: PCP Nurse Practitioner Family; Visit Provider Internal Medicine Pulmonary Disease
DX: R06.00 Dyspnea, unspecified (principal); I27.20 Pulmonary hypertension, unspecified
CPT/HCPCS: 83520; 83880; 86038; 86235